=== PATIENT | female | born 1985 | race Caucasian/White ===

== ENCOUNTER → 2016-07-05 | Outpatient (CLI) | payer BC, OTHER ==
[2016-07-12 14:23] LABS: Mis test requested (Blood) ARIPIPRAZOLE
[2016-07-12 14:29] LABS: Mis test requested (Blood) Sertraline
== END ==
LOC: LABWHC1 16:02
PROVIDERS: ATTEND Physician Assistant Medical
DX: Z51.81 Encounter for therapeutic drug level monitoring (principal)
CPT/HCPCS: 36415; 80332; 80342

== ENCOUNTER → 2016-08-20 | Outpatient (CLI) | payer BC, OTHER ==
--- NOTE | 2016-08-20 13:32 | XR ---
EXAMINATION TYPE: XR knee 4V bilateral DATE OF EXAM ORDERED: 08/20/2016 1:25 PM HISTORY: M25.561 M25.562 bilateral leg pain. COMPARISON: None. FINDINGS: Joint spaces are well maintained. There is no chondrocalcinosis. No fracture or dislocatio n is seen. No joint effusion is evident. IMPRESSION: NORMAL BILATERAL KNEES.
== END ==
LOC: RADXRMAIN 13:00
PROVIDERS: ATTEND Physician Assistant
DX: M25.562 Pain in left knee (principal)

== ENCOUNTER 2016-12-14 18:16 | Emergency (ER) | payer OTHER ==
[2016-12-14 18:19] VITALS: BP 117/77; PULSE 93; RESP 20; TEMP 98.1
--- NOTE | 2016-12-14 18:29 | ED ---
Lower Extremity Injury HPI - General Chief Complaint: Extremity Injury, Lower Stated Complaint: left foot injury Time Seen by Provider: 12/14/16 18:20 Source: patient Mode of arrival: ambulatory Limitations: no limitations - History of Present Illness Initial Comments: 31-year-old female patient presents to emergency department today for evaluation of left foot and ankle injury. Patient states 2 weeks ago she was bringing her bicycle down the stairs when she missed the last 2 steps and fell twisting her ankle. Patient states that since then she has had pain with weightbearing, and tingling in her toes whenever she moves her foot. Patient denies any previous injuries to the foot or ankle. Patient states that occasionally the pain will radiate up into her lower leg. Patient denies any other injuries from the fall. Patient denies any head injury or loss of consciousness from the fall. She denies any headache, neck pain, back pain, chest pain, shortness of breath, abdominal pain, nausea, vomiting, with dizziness, or weakness. - Related Data Home Medications Medication Instructions Recorded Confirmed Acetaminophen-Codeine 300-30mg 1 tab PO Q6H PRN 02/24/16 03/16/16 [Tylenol #3] traMADol HCL [Ultram] 50 mg PO Q4HR PRN 02/24/16 03/16/16 Mirtazapine [Remeron] 15 mg PO HS 03/16/16 03/16/16 Allergies Allergy/AdvReac Type Severity Reaction Status Date / Time amoxicillin [Amoxicillin] Allergy Confusion Verified 12/14/16 18:19 Penicillins Allergy Confusion Verified 12/14/16 18:19 Review of Systems ROS Statement: Those systems with pertinent positive or pertinent negative responses have been documented in the HPI. ROS Other: All systems not noted in ROS Statement are negative. Past Medical History Past Medical History: Thyroid Disorder Additional Past Medical History / Comment(s): genital herpes History of Any Multi-Drug Resistant Organisms: None Reported Past Surgical History: No Surgical Hx Reported Past Psychological History: ADD/ADHD, Anxiety, Bipolar Smoking Status: Former smoker Past Alcohol Use History: None Reported Past Drug Use History: None Reported General Exam Limitations: no limitations General appearance: alert, in no apparent distress Head exam: Present: atraumatic, normocephalic, normal inspection Neck exam: Present: normal inspection, full ROM. Absent: tenderness, meningismus, lymphadenopathy Respiratory exam: Present: normal lung sounds bilaterally. Absent: respiratory distress, wheezes, rales, rhonchi, stridor Cardiovascular Exam: Present: regular rate, normal rhythm, normal heart sounds. Absent: systolic murmur, diastolic murmur, rubs, gallop, clicks Extremities exam: Present: normal inspection, full ROM (Full range of motion without difficulty to the left ankle and foot.), tenderness, normal capillary refill, other (Tender is over the dorsal aspect of the left foot. No tenderness noted over the medial lateral malleoli. Skin pink, warm, and dry. Capillary refill less than 3 seconds. No rash or ecchymosis noted.). Absent: pedal edema, joint swelling, calf tenderness Back exam: Present: normal inspection Neurological exam: Present: alert, oriented X3, CN II-XII intact Psychiatric exam: Present: normal affect, normal mood Skin exam: Present: warm, dry, intact, normal color. Absent: rash Course Vital Signs 12/14/16 18:17 Temperature 98.1 F Pulse Rate 93 Respiratory 20 Rate Blood Pressure 117/77 O2 Sat by Pulse 99 Oximetry Medical Decision Making - Radiology Data Radiology results: report reviewed, image reviewed X-ray of the foot and ankle shows no acute fracture dislocation. The ankle mortise appears within normal limits. The overlying soft tissue appears unremarkable. There is no acute fracture or dislocation evident in the left foot. The joint spaces in the left foot are preserved. Overlying soft tissues unremarkable. Small inferior calcaneal heel spur is noted. Impression by Dr. Johnston shows no acute fracture dislocation of the left ankle or foot. Disposition Clinical Impression: Left ankle sprain, Sprain of left foot Disposition: HOME SELF-CARE Condition: Good Instructions: Foot Sprain (ED), Ankle Sprain (ED) Additional Instructions: Utilize [id number] Tylenol and Motrin for pain control. Keep foot elevated and apply ice 4 times daily. Follow-up with primary care physician 1- 2 days for recheck. Return for any new, worsening, or concerning symptoms. Referrals: Erin Correa DO [Primary Care Provider] - 1-2 days Time of Disposition: 19:12
--- NOTE | 2016-12-14 19:07 | XR ---
EXAMINATION TYPE: XR foot limited LT, XR ankle complete LT DATE OF EXAM: 12/14/2016 CLINICAL HISTORY: Twisting injury with subsequent pain. Injury last month. TECHNIQUE: Frontal and lateral radiographs of the left foot were obtained as well as frontal, lateral and oblique radiographs of the left ankle.. COMPARISON: None. FINDINGS: There is no acute fracture/dislocation evident in the left ankle. The ankle mortise appea rs within normal limits. The overlying soft tissue appears unremarkable. There is no acute fracture or dislocation evident in the left foot. The joint spaces in the left foot are preserved. Overlying soft tissue is unremarkable. Small inferior calcaneal heel spur is noted. IMPRESSION: There is no acute fracture or dislocation in the left ankle or foot.
== END 2016-12-14 19:26 | disposition home or self-care (01) ==
LOC: EC 18:16
DX: S93.402A Sprain of unspecified ligament of left ankle, initial encounter (principal); S93.602A Unspecified sprain of left foot, initial encounter; M77.32 Calcaneal spur, left foot; M79.662 Pain in left lower leg; F31.9 Bipolar disorder, unspecified; Z87.891 Personal history of nicotine dependence; Z79.899 Other long term (current) drug therapy; Z88.0 Allergy status to penicillin; W10.9XXA Fall (on) (from) unspecified stairs and steps, initial encounter; Y93.89 Activity, other specified
CPT/HCPCS: 73610; 73620; 99283; L4350

== ENCOUNTER 2017-02-10 15:47 | Emergency (ER) | payer OTHER ==
[2017-02-10 16:13] VITALS: BP 123/77; PULSE 95; RESP 18; TEMP 98.8
--- NOTE | 2017-02-10 16:27 | ED ---
Extremity Problem HPI - General Chief complaint: Extremity Problem,Nontraumatic Stated complaint: R foot pain Time Seen by Provider: 02/10/17 16:13 Source: patient, RN notes reviewed Mode of arrival: ambulatory Limitations: no limitations - History of Present Illness Initial comments: This is a 31-year-old female who presents to the emergency department today with chief complaint of right heel pain. 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 Patient states that when it is most severe it radiates to her right arch. She has tried taking naproxen, ibuprofen and Tylenol with minimal relief.Denies fever, chills, chest pain, shortness of breath, abdominal pain, nausea, vomiting, dysuria, hematuria, numbess, tingling , headache or vision changes. - Related Data Home Medications Medication Instructions Recorded Confirmed Acetaminophen-Codeine 300-30mg 1 tab PO Q6H PRN 02/24/16 03/16/16 [Tylenol #3] traMADol HCL [Ultram] 50 mg PO Q4HR PRN 02/24/16 03/16/16 Mirtazapine [Remeron] 15 mg PO HS 03/16/16 03/16/16 Previous Rx's Medication Instructions Recorded Ibuprofen [Motrin] 800 mg PO Q6HR #30 tab 02/10/17 Allergies Allergy/AdvReac Type Severity Reaction Status Date / Time amoxicillin [Amoxicillin] Allergy Confusion Verified 02/10/17 16:11 Penicillins Allergy Confusion Verified 02/10/17 16:11 Review of Systems ROS Statement: Those systems with pertinent positive or pertinent negative responses have been documented in the HPI. ROS Other: All systems not noted in ROS Statement are negative. Past Medical History Past Medical History: Thyroid Disorder Additional Past Medical History / Comment(s): genital herpes History of Any Multi-Drug Resistant Organisms: None Reported Past Surgical History: No Surgical Hx Reported Past Psychological History: ADD/ADHD, Anxiety, Bipolar Smoking Status: Former smoker Past Alcohol Use History: None Reported Past Drug Use History: None Reported General Exam - General Exam Comments Initial Comments: General: Awake and alert, well-developed; in no apparent distress. HEENT: Head atraumatic, normocephalic. Pupils are equal, round and reactive to light. Extraocular movements intact. Neck: Supple. Normal ROM. Cardiovascular: Regular rate and rhythm. No murmurs, rubs or gallops. Chest symmetrical. Respiratory: Lungs clear to auscultation bilaterally. No wheezes, rales or rhonchi. Normal respiratory effort with no use of accessory muscles. Musculoskeletal: Tenderness elicited on palpation of the plantar surface of right heel. No bony point tenderness. Pedal pulses 2+, equal and palpable bilaterally. Normal range of motion. Strength and sensation are intact. No swelling or redness noted. Skin: [place], warm and dry without rashes or lesions. Neurological: Alert and oriented x3. CN II-XII grossly intact. Speech is fluent and answers are appropriate. No focal neuro deficits. Psychiatric: Normal mood and affect. No overt signs of depression or anxiety noted. Limitations: no limitations Course Vital Signs 02/10/17 16:00 Temperature 98.8 F Pulse Rate 95 Respiratory 18 Rate Blood Pressure 123/77 O2 Sat by Pulse 100 Oximetry Medical Decision Making - Medical Decision Making Patient is doing well and is in no acute distress at this time. X-ray of right foot revealed no acute fracture or dislocation. There was noted to be a moderate calcaneal enthesophyte. Patient will be discharged home with instructions to follow up with primary care provider within 1-2 days. She is instructed to do stretching exercises, use orthotics or heel padding, and take anti-inflammatories as needed. Disposition Clinical Impression: Heel spur Disposition: HOME SELF-CARE Condition: Good Instructions: Heel Spur (ED) Additional Instructions: Please take medications as prescribed. Please follow up with primary care provider within 1-2 days. May do stretching exercises, use orthotics or heel padding. Return to ED if symptoms should worsen or any concerns arise. Prescriptions: Ibuprofen [Motrin] 800 mg PO Q6HR #30 tab Referrals: Erin Correa DO [Primary Care Provider] - 1-2 days Time of Disposition: 16:53
--- NOTE | 2017-02-10 16:38 | XR ---
EXAMINATION TYPE: XR foot complete RT DATE OF EXAM: 02/10/2017 CLINICAL HISTORY: Right calcaneal pain for one week with no known injury. TECHNIQUE: Frontal, lateral, and oblique images of the right foot are obtained. COMPARISON: None FINDINGS: There is no acute fracture/dislocation evident in the right foot. The joint spaces in the right foot appear within normal limits. The overlying soft tissue appears unremarkable. Moderate pl alyse enthesophyte is present. No suspicious osseous lesion is seen. Hallux valgus deformity is incid entally noted as well as a bipartite right first distal metatarsal sesamoid bone. Flexion deformity o f the toes limits visualization of the distal interphalangeal joints and proximal interphalangeal kay nts. IMPRESSION: 1. There is no acute fracture or dislocation in the right foot. 2. Moderate inferior calcaneal (plantar fascial) enthesophyte.
== END 2017-02-10 17:04 | disposition home or self-care (01) ==
LOC: EC 15:47
DX: M77.31 Calcaneal spur, right foot (principal); F90.9 Attention-deficit hyperactivity disorder, unspecified type; F41.9 Anxiety disorder, unspecified; Z87.891 Personal history of nicotine dependence; Z79.899 Other long term (current) drug therapy; Z88.0 Allergy status to penicillin
CPT/HCPCS: 99283

== ENCOUNTER 2017-02-23 12:31 | Emergency (ER) | payer OTHER ==
[2017-02-23 12:58] VITALS: RESP 18
--- NOTE | 2017-02-23 14:42 | ED ---
General Adult HPI - General Chief complaint: Chest Pain Stated complaint: abd pain/chest pain Time Seen by Provider: 02/23/17 14:17 Source: patient, RN notes reviewed, old records reviewed Mode of arrival: ambulatory Limitations: no limitations - History of Present Illness Initial comments: Chief complaint history of present illness this is a 31-year-old female here with a complaint of possible anxiety attack. The patient reports that approximately 7:00 this morning she had an argument with a very stressful situation while at work. She describes rapid ventilations and feeling short of breath and slightly dizzy. No chest pain. No nausea no vomiting no sweats. Patient reports skin the hospital while in the waiting room she felt better. - Related Data Home Medications Medication Instructions Recorded Confirmed ARIPiprazole [Abilify] 5 mg PO HS 02/23/17 02/23/17 Loratadine [Claritin] 10 mg PO DAILY 02/23/17 02/23/17 Naproxen [Naprosyn] 500 mg PO BID PRN 02/23/17 02/23/17 SUMAtriptan SUCCINATE [Imitrex] 50 mg PO DAILY PRN 02/23/17 02/23/17 Sertraline [Zoloft] 100 mg PO HS 02/23/17 02/23/17 rOPINIRole HCL [Requip] 0.5 mg PO HS 02/23/17 02/23/17 Previous Rx's Medication Instructions Recorded Ibuprofen [Motrin] 800 mg PO Q6HR #30 tab 02/10/17 Allergies Allergy/AdvReac Type Severity Reaction Status Date / Time amoxicillin [Amoxicillin] Allergy Confusion Verified 02/23/17 14:22 Penicillins Allergy Confusion Verified 02/23/17 14:22 Review of Systems ROS Statement: Those systems with pertinent positive or pertinent negative responses have been documented in the HPI. Review of systems currently no chest pain no shortness of breath no GI/ problems no neuro deficits. All systems reviewed within normal limits. Past medical problems significant for bipolar disorder, she is to be on medications for thyroid disorder but she's had it checked several times by her family doctor in the remains normal. Also past history of genital herpes. Surgeries wisdom teeth. Family history her son had a hepatic blastoma has since received a liver transplant. The patient has ALLERGIES to penicillin. She does smoke. Strongly encouraged stop. Denies alcohol use. ROS Other: All systems not noted in ROS Statement are negative. Past Medical History Past Medical History: Thyroid Disorder Additional Past Medical History / Comment(s): genital herpes low magnesium levels and hypoglycemia History of Any Multi-Drug Resistant Organisms: None Reported Past Surgical History: No Surgical Hx Reported Past Psychological History: ADD/ADHD, Anxiety, Bipolar Smoking Status: Current every day smoker Past Alcohol Use History: None Reported Past Drug Use History: None Reported General Exam - General Exam Comments Initial Comments: General: The patient is awake and alert, in no distress, and does not appear acutely ill. Chief complaint shortness of breath associated with anxiety attack at work several hours ago. Vital signs temp 99.1 pulse 78 respiratory rate 18 pulse ox 100% room air blood pressure 119/75 Eye: Pupils are equal, round and reactive to light, extra-ocular movements are intact ; there is normal conjunctiva bilaterally. No signs of icterus. Ears, nose, mouth and throat: There are moist mucous membranes and no oral lesions. Neck: The neck is supple, there is no tenderness, no anterior cervical lymphadenopathy , thyroid not enlarged. Cardiovascular: There is a regular rate and rhythm. No murmur, rub or gallop is appreciated. Respiratory: Lungs are clear to auscultation, respirations are non-labored, breath sounds are equal. No wheezes, stridor, rales, or rhonchi. Gastrointestinal: Soft, non-distended, non-tender abdomen without masses or organomegaly noted. There is no rebound or guarding present. No CVA tenderness. Bowel sounds are unremarkable. Back: There is no tenderness to palpation in the midline. There is no obvious deformity. No rashes noted. Musculoskeletal: Normal ROM, no tenderness, There is no pedal edema. There is no calf tenderness or swelling. Sensation intact. Pulses equal bilaterally 2+. Neurological: CN II-XII intact, There are no obvious motor or sensory deficits. Coordination appears grossly intact. Speech is normal. No focal or lateralizing findings. Skin: Skin is warm and dry and no rashes or lesions are noted. Psychiatric: Cooperative, appropriate mood & affect, normal judgment. History of bipolar disorder no complaints of any problems with depression at this time. Limitations: no limitations Course Vital Signs 02/23/17 12:54 Temperature 99.1 F Pulse Rate 79 Respiratory 18 Rate Blood Pressure 119/75 O2 Sat by Pulse 100 Oximetry EKG Findings - EKG Comments: EKG Findings:: EKG was done and reviewed at 1346 showing normal sinus rhythm no acute ST elevation no ectopy no ischemic changes. Rate 70 ME interval was 148 QRS [address] QT [address] Onofre Medical Decision Making - Medical Decision Making Chest x-ray was done and reviewed radiologist his impression is there is no focal airspace opacity, pleural effusion, or pneumothorax seen. Cardiac silhouette size is within normal limits. Patient is rotated. Metallic posterior present to the nipples. Suspect some bronchial wall thickening. The osseous structures are intact. Impression correlate for possible reactive airway disease. Follow-up is indicated. As read by Dr. Trejo She does not have a history of asthma in the lungs are clear to auscultation. Patient will be advised to follow-up with family physician as needed. We discussed anxiety and panic attacks. The patient states she was better soon as she arrived emergency room has not had any symptoms since then. Advised to call follow-up with family physician and if she has a counselor to follow-up with counselor as needed. Or return emergency room as needed. Disposition Clinical Impression: Anxiety attack Disposition: HOME SELF-CARE Condition: Good Instructions: Generalized Anxiety Disorder (ED) Additional Instructions: As relax. Breathe slowly if this event occurs again. Follow-up emergency room as needed. Follow-up with family physician and outpatient mental health counselors as needed. Referrals: Erin Correa DO [Primary Care Provider] - 1-2 days Time of Disposition: 15:43
--- NOTE | 2017-02-23 15:07 | XR ---
EXAMINATION TYPE: XR chest 2V DATE OF EXAM: 02/23/2017 COMPARISON: Prior chest x-ray 09/16/2013 HISTORY: Chest pain and shortness of breath TECHNIQUE: Frontal and lateral views of the chest are obtained. FINDINGS: There is no focal air space opacity, pleural effusion, or pneumothorax seen. The cardiac silhouette size is within normal limits. Patient is rotated. Metallic posterior present to the nipp les. Suspect some bronchial wall thickening. The osseous structures are intact. IMPRESSION: Correlate for possible reactive airways disease. Follow-up as indicated.
[2017-02-23 15:50] VITALS: BP 122/75; PULSE 75; TEMP 97
== END 2017-02-23 15:52 | disposition home or self-care (01) ==
LOC: EC 12:31
DX: F41.9 Anxiety disorder, unspecified (principal); F31.9 Bipolar disorder, unspecified; F17.200 Nicotine dependence, unspecified, uncomplicated; Z88.0 Allergy status to penicillin; Z79.899 Other long term (current) drug therapy
CPT/HCPCS: 71020; 93005; 99285

== ENCOUNTER 2017-03-21 15:30 | Emergency (ER) | payer OTHER ==
[2017-03-21 16:32] LABS: Basophils % (A) 0 %; CH 30.3; CHCM 33.7; Eosinophils # (A) 0.1 k/uL (0-0.7); Eosinophils % (A) 1 %; HCT 39.6 % (34.0-46.0); HDW 2.55; HGB 13.2 gm/dL (11.4-16.0); Luc # (Auto) 0.14; Luc % (Auto) 1; Lymphocytes # (A) 2.9 k/uL (1.0-4.8); Lymphocytes % (A) 24 %; MCH 30.1 pg (25.0-35.0); MCHC 33.4 g/dL (31.0-37.0); MCV 90.2 fL (80.0-100.0); Mean Platelet Volume 6.8; Monocytes # (A) 0.5 k/uL (0-1.0); Monocytes % (A) 4 %; Neutrophils # (A) 8.3 k/uL (1.3-7.7); Neutrophils % (A) 70 %; RBC 4.39 m/uL (3.80-5.40); RDW 13.2 % (11.5-15.5); WBC (Perox) 11.49
--- NOTE | 2017-03-21 16:39 | XR ---
EXAMINATION TYPE: XR KUB DATE OF EXAM: 03/21/2017 COMPARISON: NONE HISTORY: Pain TECHNIQUE: Single supine KUB image of the abdomen is obtained FINDINGS: Small bowel demonstrates no evidence for dilatation or air fluid levels. Gas and fecal material is seen in non-distended colon. No convincing evidence for pneumoperitoneum. No unusual calcifications. The lung bases are clear. The osseous structures are intact. IMPRESSION: 1. Overall nonobstructive bowel gas pattern.
[2017-03-21 16:41] LABS: Appearance,Urine Cloudy (Clear); Bilirubin,Urine Negative (Negative); Glucose,Urine (UA) Negative (Negative); Ketones,Urine Negative (Negative); Leukocyte Esterase,Urine Small (Negative); Mucus,Urine Rare /hpf; Nitrite,Urine Negative (Negative); Particle Count 2729; Protein,Urine Negative (Negative); RBC,Urine 2 /hpf (0-5); Specific Gravity,Urine 1.009 (1.001-1.035); Squamous Epithelial Cell,Urine 23 /hpf (0-4); UA Billing (MACRO vs. MICRO) MICRO; Urobilinogen,Urine <2.0 mg/dL (<2.0); WBC,Urine 2 /hpf (0-5)
[2017-03-21 16:45] LABS: ALT 33 U/L (9-52); AST 27 U/L (14-36); Alkaline Phosphatase 108 U/L (38-126); Amylase <30 U/L (30-110); Anion Gap 14 mmol/L; Blood Urea Nitrogen 8 mg/dL (7-17); Calcium 9.8 mg/dL (8.4-10.2); Carbon Dioxide 21 mmol/L (22-30); Chloride 105 mmol/L (98-107); Glucose 78 mg/dL (74-99); Non-African American GFR(MDRD) >60 (>60 ml/min/1.73 sqM); Potassium 3.8 mmol/L (3.5-5.1); Sodium 140 mmol/L (137-145); Total Bilirubin 0.3 mg/dL (0.2-1.3); Total Protein 7.4 g/dL (6.3-8.2)
--- NOTE | 2017-03-21 17:05 | ED ---
Abdominal Pain HPI - General Chief Complaint: Abdominal Pain Stated Complaint: Abd Pain Time Seen by Provider: 03/21/17 15:57 Source: patient, RN notes reviewed, old records reviewed Mode of arrival: ambulatory Limitations: no limitations - History of Present Illness Initial Comments: Pt is a 31-year-old female presents to the emergency department she complains of intermittent right upper quadrant pain concern for liver cancer. She reports it has been worse this past week. She reports she has never followed up with her primary care provider in regards to concerns with this. She does have family history of liver cancer. Your first she's been very anxious regards to this. Patient states that she's had no diarrhea come over vomiting. Patient states that she is in a fever chills. She denies any Jandus. - Related Data Home Medications Medication Instructions Recorded Confirmed Magnesium 200 mg PO DAILY 03/09/17 03/21/17 SUMAtriptan SUCCINATE [Imitrex] 50 mg PO DAILY PRN 03/21/17 03/21/17 Previous Rx's Medication Instructions Recorded Famotidine [Pepcid] 20 mg PO BID #20 tablet 03/21/17 Ondansetron Odt [Zofran Odt] 4 mg PO Q8HR PRN #12 tab 03/21/17 Allergies Allergy/AdvReac Type Severity Reaction Status Date / Time amoxicillin [Amoxicillin] Allergy SHORTNESS Verified 03/21/17 17:22 OF BREATH Penicillins Allergy Confusion Verified 03/21/17 17:22 Review of Systems ROS Statement: Those systems with pertinent positive or pertinent negative responses have been documented in the HPI. ROS Other: All systems not noted in ROS Statement are negative. Past Medical History Past Medical History: Thyroid Disorder Additional Past Medical History / Comment(s): genital herpes low magnesium levels and hypoglycemia migraines History of Any Multi-Drug Resistant Organisms: None Reported Past Surgical History: No Surgical Hx Reported Past Psychological History: ADD/ADHD, Anxiety, Bipolar Smoking Status: Former smoker Past Alcohol Use History: None Reported Past Drug Use History: Marijuana General Exam - General Exam Comments Initial Comments: Well appearing 31 yo female. No distress. Limitations: no limitations General appearance: alert, in no apparent distress Head exam: Present: atraumatic, normocephalic, normal inspection Eye exam: Present: normal appearance, PERRL, EOMI. Absent: scleral icterus, conjunctival injection, periorbital swelling ENT exam: Present: normal exam, mucous membranes moist Neck exam: Present: normal inspection. Absent: tenderness, meningismus, lymphadenopathy Respiratory exam: Present: normal lung sounds bilaterally. Absent: respiratory distress, wheezes, rales, rhonchi, stridor Cardiovascular Exam: Present: regular rate, normal rhythm, normal heart sounds. Absent: systolic murmur, diastolic murmur, rubs, gallop, clicks GI/Abdominal exam: Present: soft, tenderness (RUQ us ), normal bowel sounds. Absent: distended, guarding, rebound, rigid Extremities exam: Present: normal inspection, full ROM, normal capillary refill. Absent: tenderness, pedal edema, joint swelling, calf tenderness Back exam: Present: normal inspection Neurological exam: Present: alert, oriented X3, CN II-XII intact Psychiatric exam: Present: normal affect, normal mood Skin exam: Present: warm, dry, intact, normal color. Absent: rash Course Vital Signs 03/21/17 03/21/17 15:49 18:19 Temperature 99.4 F 98.9 F Pulse Rate 94 66 Respiratory 16 18 Rate Blood Pressure 128/87 93/66 O2 Sat by Pulse 100 100 Oximetry Medical Decision Making - Medical Decision Making [id number] female presents with one week of right upper quadrant abdominal pain. Concerned she may have liver cancer. She has a history of anxiety. Patient 's lab work was I reviewed them with the normal limits. She was mildly tender in the right upper quadrant. I did ultrasound of her gallbladder. No evidence of any other maladies. Patient was a part of these results and feels relieved. Patient will be discharged this time will follow up with primary care provider. Return parameters were discussed. - Lab Data Result diagrams: 03/21/17 16:10 03/21/17 16:10 Lab Results 03/21/17 03/21/17 03/21/17 Range/Units 16:10 16:10 16:10 WBC 12.0 H (3.8-10.6) k/uL RBC 4.39 (3.80-5.40) m/uL Hgb 13.2 (11.4-16.0) gm/dL Hct 39.6 (34.0-46.0) % MCV 90.2 (80.0-100.0) fL MCH 30.1 (25.0-35.0) pg MCHC 33.4 (31.0-37.0) g/dL RDW 13.2 (11.5-15.5) % Plt Count 329 (150-450) k/uL Neutrophils % 70 % Lymphocytes % 24 % Monocytes % 4 % Eosinophils % 1 % Basophils % 0 % Neutrophils # 8.3 H (1.3-7.7) k/uL Lymphocytes # 2.9 (1.0-4.8) k/uL Monocytes # 0.5 (0-1.0) k/uL Eosinophils # 0.1 (0-0.7) k/uL Basophils # 0.0 (0-0.2) k/uL Sodium 140 (137-145) mmol/L Potassium 3.8 (3.5-5.1) mmol/L Chloride 105 (98-107) mmol/L Carbon Dioxide 21 L (22-30) mmol/L Anion Gap 14 mmol/L BUN 8 (7-17) mg/dL Creatinine 0.70 (0.52-1.04) mg/dL Est GFR (MDRD) Af Amer >60 (>60 ml/min/1.73 sqM) Est GFR (MDRD) Non-Af >60 (>60 ml/min/1.73 sqM) Glucose 78 (74-99) mg/dL Calcium 9.8 (8.4-10.2) mg/dL Total Bilirubin 0.3 (0.2-1.3) mg/dL AST 27 (14-36) U/L ALT 33 (9-52) U/L Alkaline Phosphatase 108 (38-126) U/L Total Protein 7.4 (6.3-8.2) g/dL Albumin 4.4 (3.5-5.0) g/dL Amylase <30 L (30-110) U/L Lipase 46 (23-300) U/L Urine Color Urine Appearance (Clear) Urine pH (5.0-8.0) Ur Specific [place] (1.001-1.035) Urine Protein (Negative) Urine Glucose (UA) (Negative) Urine Ketones (Negative) Urine Blood (Negative) Urine Nitrite (Negative) Urine Bilirubin (Negative) Urine Urobilinogen (<2.0) mg/dL Ur Leukocyte Esterase (Negative) Urine RBC (0-5) /hpf Urine WBC (0-5) /hpf Ur Squamous Epith Cells (0-4) /hpf Urine Mucus (None) /hpf Urine HCG, Qual Not Detected (Not Detectd) 03/21/17 Range/Units 16:10 WBC (3.8-10.6) k/uL RBC (3.80-5.40) m/uL Hgb (11.4-16.0) gm/dL Hct (34.0-46.0) % MCV (80.0-100.0) fL MCH (25.0-35.0) pg MCHC (31.0-37.0) g/dL RDW (11.5-15.5) % Plt Count (150-450) k/uL Neutrophils % % Lymphocytes % % Monocytes % % Eosinophils % % Basophils % % Neutrophils # (1.3-7.7) k/uL Lymphocytes # (1.0-4.8) k/uL Monocytes # (0-1.0) k/uL Eosinophils # (0-0.7) k/uL Basophils # (0-0.2) k/uL Sodium (137-145) mmol/L Potassium (3.5-5.1) mmol/L Chloride (98-107) mmol/L Carbon Dioxide (22-30) mmol/L Anion Gap mmol/L BUN (7-17) mg/dL Creatinine (0.52-1.04) mg/dL Est GFR (MDRD) Af Amer (>60 ml/min/1.73 sqM) Est GFR (MDRD) Non-Af (>60 ml/min/1.73 sqM) Glucose (74-99) mg/dL Calcium (8.4-10.2) mg/dL Total Bilirubin (0.2-1.3) mg/dL AST (14-36) U/L ALT (9-52) U/L Alkaline Phosphatase (38-126) U/L Total Protein (6.3-8.2) g/dL Albumin (3.5-5.0) g/dL Amylase (30-110) U/L Lipase (23-300) U/L Urine Color Yellow Urine Appearance Cloudy H (Clear) Urine pH 6.0 (5.0-8.0) Ur Specific [place] 1.009 (1.001-1.035) Urine Protein Negative (Negative) Urine Glucose (UA) Negative (Negative) Urine Ketones Negative (Negative) Urine Blood Trace H (Negative) Urine Nitrite Negative (Negative) Urine Bilirubin Negative (Negative) Urine Urobilinogen <2.0 (<2.0) mg/dL Ur Leukocyte Esterase Small H (Negative) Urine RBC 2 (0-5) /hpf Urine WBC 2 (0-5) /hpf Ur Squamous Epith Cells 23 H (0-4) /hpf Urine Mucus Rare H (None) /hpf Urine HCG, Qual (Not Detectd) - Radiology Data Radiology results: report reviewed Normal right upper quadrant ultrasound performed. No acute cholecystitis, . Liver was within normal limits. No evidence of liver masses. Disposition Clinical Impression: RUQ abdominal pain Disposition: HOME SELF-CARE Condition: Good Instructions: Abdominal Pain (ED) Additional Instructions: Patient advised to follow-up with primary care provider. Take the nausea medicine and Pepcid as prescribed. Return to the emergency department if any alarming signs or symptoms occur. Prescriptions: Famotidine [Pepcid] 20 mg PO BID #20 tablet Ondansetron Odt [Zofran Odt] 4 mg PO Q8HR PRN #12 tab PRN Reason: Nausea Referrals: Erin Correa DO [Primary Care Provider] - 1-2 days Time of Disposition: 17:42
--- NOTE | 2017-03-21 17:17 | US ---
EXAMINATION TYPE: US gallbladder DATE OF EXAM: 03/21/2017 COMPARISON: NONE CLINICAL HISTORY: Pain. EXAM MEASUREMENTS: Liver Length: 13.9 cm Gallbladder Wall: 0.3 cm CBD: 0.3 cm Right Kidney: 11.2 x 4.0 x 5.2 cm Pancreas: Tail obscured by overlying bowel gas Liver: wnl Gallbladder: wnl Evidence for sonographic Montez's sign: no CBD: wnl Right Kidney: Inferior pole obscured by overlying bowel gas IMPRESSION: Negative right upper quadrant abdominal sonogram. No gallstones or dilated ducts.
[2017-03-21 18:20] VITALS: BP 93/66; PULSE 66; RESP 18; TEMP 98.9
== END 2017-03-21 18:20 | disposition home or self-care (01) ==
LOC: EC 15:30
DX: R10.11 Right upper quadrant pain (principal); R50.9 Fever, unspecified; Z87.891 Personal history of nicotine dependence; Z79.899 Other long term (current) drug therapy; Z88.0 Allergy status to penicillin
CPT/HCPCS: 36415; 74000; 76705; 80053; 81001; 81025; 82150; 83690; 85025; 99284

== ENCOUNTER 2017-04-07 16:56 | Emergency (ER) | payer OTHER ==
[2017-04-07 17:08] VITALS: RESP 20
[2017-04-07] MEDS ORDERED: IBUPROFEN 600 MG TAB PO STA (18:10)
[2017-04-07] MEDS ORDERED: METOCLOPRAMIDE 5 MG/ML 2 ML VIAL IVP STA (18:11)
[2017-04-07] MEDS ORDERED: SODIUM CHLORIDE 0.9% 1,000 ML IV ONE (18:11)
--- NOTE | 2017-04-07 18:48 | ED ---
General Adult HPI - General Chief complaint: Headache Stated complaint: Neck Pain Time Seen by Provider: 04/07/17 18:04 Source: patient, RN notes reviewed Mode of arrival: ambulatory Limitations: no limitations - History of Present Illness Initial comments: This a 31-year-old female presents emergency Department with chief complaint of fever, neck pain. Patient states symptoms started from today. Patient states she's is not well. She denies any specific complaints. Patient states she has chronic neck problems states that she fell she's been having exacerbation of her symptoms. She complains of primarily right-sided neck pain. Patient also complains of some urinary symptoms in which she's had increased frequency and dysuria. Patient denies any vomiting, diarrhea constipation. Patient states she was nauseated this morning though she took Zofran. Patient also took without codeine for her next this pain but states it in a month. Patient denies codeine for her neck pain. Patient states nausea resolved. Denies any photophobia. Patient states the headache is very mild in nature. Denies any blurred vision, focal weakness. - Related Data Home Medications Medication Instructions Recorded Confirmed Magnesium 200 mg PO DAILY 03/09/17 04/07/17 SUMAtriptan SUCCINATE [Imitrex] 50 mg PO DAILY PRN 03/21/17 04/07/17 Previous Rx's Medication Instructions Recorded Ondansetron Odt [Zofran Odt] 4 mg PO Q8HR PRN #12 tab 03/21/17 Allergies Allergy/AdvReac Type Severity Reaction Status Date / Time amoxicillin [Amoxicillin] Allergy SHORTNESS Verified 04/07/17 18:03 OF BREATH Penicillins Allergy Confusion Verified 04/07/17 18:03 Review of Systems ROS Statement: Those systems with pertinent positive or pertinent negative responses have been documented in the HPI. ROS Other: All systems not noted in ROS Statement are negative. Past Medical History Past Medical History: Thyroid Disorder Additional Past Medical History / Comment(s): genital herpes low magnesium levels and hypoglycemia migraines History of Any Multi-Drug Resistant Organisms: None Reported Past Surgical History: No Surgical Hx Reported Past Psychological History: ADD/ADHD, Anxiety, Bipolar Smoking Status: Light tobacco smoker Past Alcohol Use History: None Reported Past Drug Use History: None Reported General Exam Limitations: no limitations General appearance: alert, in no apparent distress Head exam: Present: atraumatic, normocephalic, normal inspection Eye exam: Present: normal appearance, PERRL, EOMI. Absent: scleral icterus, conjunctival injection, periorbital swelling ENT exam: Present: normal exam, normal oropharynx, mucous membranes moist, TM's normal bilaterally, normal external ear exam Neck exam: Present: normal inspection, tenderness (Mild right-sided neck tenderness over the cervical paraspinal region), full ROM. Absent: meningismus , lymphadenopathy Respiratory exam: Present: normal lung sounds bilaterally. Absent: respiratory distress, wheezes, rales, rhonchi, stridor Cardiovascular Exam: Present: regular rate, normal rhythm, normal heart sounds. Absent: systolic murmur, diastolic murmur, rubs, gallop, clicks GI/Abdominal exam: Present: soft, tenderness (Mild suprapubic), normal bowel sounds. Absent: distended, guarding, rebound, rigid Back exam: Absent: CVA tenderness (R), CVA tenderness (L) Neurological exam: Present: alert, oriented X3, CN II-XII intact, reflexes normal. Absent: motor sensory deficit Skin exam: Present: warm, dry, intact, normal color. Absent: rash Course Vital Signs 04/07/17 17:05 Temperature 101 F H Pulse Rate 104 H Respiratory 20 Rate Blood Pressure 130/88 O2 Sat by Pulse 98 Oximetry Medical Decision Making - Medical Decision Making 31-year-old female presented emergency department to complaining neck pain, headache not feeling well. Patient had lab work, x-ray, strep, influenza, urinalysis all which are negative at this time there is no acute abnormality. Patient was given ibuprofen antiemetics and some fluid she states she feels 100 % better. Patient had no nuchal rigidity or signs and meningismus on exam though based on patient's symptoms a headache and some neck pain with a fever I did recommend that we do a lumbar puncture to rule out meningitis. Patient is refusing this at this time. I do feel that it is less likely to be meningitis that she has no nuchal rigidity that she does feel improved after ibuprofen and fluids. We discussed return parameters and close follow-up. - Lab Data Result diagrams: 04/07/17 19:12 04/07/17 19:12 Lab Results 04/07/17 04/07/17 04/07/17 Range/Units 17:00 19:12 19:12 WBC 8.4 (3.8-10.6) k/uL RBC 4.20 (3.80-5.40) m/uL Hgb 12.3 (11.4-16.0) gm/dL Hct 36.9 (34.0-46.0) % MCV 87.8 (80.0-100.0) fL MCH 29.3 (25.0-35.0) pg MCHC 33.3 (31.0-37.0) g/dL RDW 13.4 (11.5-15.5) % Plt Count 264 (150-450) k/uL Neutrophils % 65 % Lymphocytes % 27 % Monocytes % 5 % Eosinophils % 1 % Basophils % 0 % Neutrophils # 5.5 (1.3-7.7) k/uL Lymphocytes # 2.3 (1.0-4.8) k/uL Monocytes # 0.4 (0-1.0) k/uL Eosinophils # 0.1 (0-0.7) k/uL Basophils # 0.0 (0-0.2) k/uL Sodium 139 (137-145) mmol/L Potassium 3.8 (3.5-5.1) mmol/L Chloride 108 H (98-107) mmol/L Carbon Dioxide 20 L (22-30) mmol/L Anion Gap 11 mmol/L BUN 9 (7-17) mg/dL Creatinine 0.60 (0.52-1.04) mg/dL Est GFR (MDRD) Af Amer >60 (>60 ml/min/1.73 sqM) Est GFR (MDRD) Non-Af >60 (>60 ml/min/1.73 sqM) Glucose 89 (74-99) mg/dL Plasma Lactic Acid Gustavo (0.7-2.0) mmol/L Calcium 9.4 (8.4-10.2) mg/dL Total Bilirubin 0.4 (0.2-1.3) mg/dL AST 29 (14-36) U/L ALT 41 (9-52) U/L Alkaline Phosphatase 95 (38-126) U/L Total Protein 6.8 (6.3-8.2) g/dL Albumin 4.0 (3.5-5.0) g/dL Urine Color Urine Appearance (Clear) Urine pH (5.0-8.0) Ur Specific [place] (1.001-1.035) Urine Protein (Negative) Urine Glucose (UA) (Negative) Urine Ketones (Negative) Urine Blood (Negative) Urine Nitrite (Negative) Urine Bilirubin (Negative) Urine Urobilinogen (<2.0) mg/dL Ur Leukocyte Esterase (Negative) Urine HCG, Qual (Not Detectd) Influenza Type A RNA Not Detected (Not Detectd) Influenza Type B (PCR) Not Detected (Not Detectd) Group A Strep Rapid (Negative) 04/07/17 04/07/17 04/07/17 Range/Units 19:12 19:42 20:32 WBC (3.8-10.6) k/uL RBC (3.80-5.40) m/uL Hgb (11.4-16.0) gm/dL Hct (34.0-46.0) % MCV (80.0-100.0) fL MCH (25.0-35.0) pg MCHC (31.0-37.0) g/dL RDW (11.5-15.5) % Plt Count (150-450) k/uL Neutrophils % % Lymphocytes % % Monocytes % % Eosinophils % % Basophils % % Neutrophils # (1.3-7.7) k/uL Lymphocytes # (1.0-4.8) k/uL Monocytes # (0-1.0) k/uL Eosinophils # (0-0.7) k/uL Basophils # (0-0.2) k/uL Sodium (137-145) mmol/L Potassium (3.5-5.1) mmol/L Chloride (98-107) mmol/L Carbon Dioxide (22-30) mmol/L Anion Gap mmol/L BUN (7-17) mg/dL Creatinine (0.52-1.04) mg/dL Est GFR (MDRD) Af Amer (>60 ml/min/1.73 sqM) Est GFR (MDRD) Non-Af (>60 ml/min/1.73 sqM) Glucose (74-99) mg/dL Plasma Lactic Acid Gustavo 1.5 (0.7-2.0) mmol/L Calcium (8.4-10.2) mg/dL Total Bilirubin (0.2-1.3) mg/dL AST (14-36) U/L ALT (9-52) U/L Alkaline Phosphatase (38-126) U/L Total Protein (6.3-8.2) g/dL Albumin (3.5-5.0) g/dL Urine Color Light Yellow Urine Appearance Clear (Clear) Urine pH 6.5 (5.0-8.0) Ur Specific [place] 1.006 (1.001-1.035) Urine Protein Negative (Negative) Urine Glucose (UA) Negative (Negative) Urine Ketones Negative (Negative) Urine Blood Negative (Negative) Urine Nitrite Negative (Negative) Urine Bilirubin Negative (Negative) Urine Urobilinogen <2.0 (<2.0) mg/dL Ur Leukocyte Esterase Negative (Negative) Urine HCG, Qual (Not Detectd) Influenza Type A RNA (Not Detectd) Influenza Type B (PCR) (Not Detectd) Group A Strep Rapid Negative (Negative) 04/07/17 Range/Units 20:32 WBC (3.8-10.6) k/uL RBC (3.80-5.40) m/uL Hgb (11.4-16.0) gm/dL Hct (34.0-46.0) % MCV (80.0-100.0) fL MCH (25.0-35.0) pg MCHC (31.0-37.0) g/dL RDW (11.5-15.5) % Plt Count (150-450) k/uL Neutrophils % % Lymphocytes % % Monocytes % % Eosinophils % % Basophils % % Neutrophils # (1.3-7.7) k/uL Lymphocytes # (1.0-4.8) k/uL Monocytes # (0-1.0) k/uL Eosinophils # (0-0.7) k/uL Basophils # (0-0.2) k/uL Sodium (137-145) mmol/L Potassium (3.5-5.1) mmol/L Chloride (98-107) mmol/L Carbon Dioxide (22-30) mmol/L Anion Gap mmol/L BUN (7-17) mg/dL Creatinine (0.52-1.04) mg/dL Est GFR (MDRD) Af Amer (>60 ml/min/1.73 sqM) Est GFR (MDRD) Non-Af (>60 ml/min/1.73 sqM) Glucose (74-99) mg/dL Plasma Lactic Acid Gustavo (0.7-2.0) mmol/L Calcium (8.4-10.2) mg/dL Total Bilirubin (0.2-1.3) mg/dL AST (14-36) U/L ALT (9-52) U/L Alkaline Phosphatase (38-126) U/L Total Protein (6.3-8.2) g/dL Albumin (3.5-5.0) g/dL Urine Color Urine Appearance (Clear) Urine pH (5.0-8.0) Ur Specific [place] (1.001-1.035) Urine Protein (Negative) Urine Glucose (UA) (Negative) Urine Ketones (Negative) Urine Blood (Negative) Urine Nitrite (Negative) Urine Bilirubin (Negative) Urine Urobilinogen (<2.0) mg/dL Ur Leukocyte Esterase (Negative) Urine HCG, Qual Not Detected (Not Detectd) Influenza Type A RNA (Not Detectd) Influenza Type B (PCR) (Not Detectd) Group A Strep Rapid (Negative) Disposition Clinical Impression: Headache, Viral infection Disposition: HOME SELF-CARE Condition: Stable Instructions: Viral Syndrome (ED) Additional Instructions: Please return to the Emergency Department if symptoms worsen or any other concerns. Referrals: Erin Correa DO [Primary Care Provider] - 1-2 days Time of Disposition: 20:51
[2017-04-07 19:23] LABS: Basophils % (A) 0 %; CH 30.4; CHCM 34.8; Eosinophils # (A) 0.1 k/uL (0-0.7); Eosinophils % (A) 1 %; HCT 36.9 % (34.0-46.0); HDW 2.61; HGB 12.3 gm/dL (11.4-16.0); Luc # (Auto) 0.15; Luc % (Auto) 2; Lymphocytes # (A) 2.3 k/uL (1.0-4.8); Lymphocytes % (A) 27 %; MCH 29.3 pg (25.0-35.0); MCHC 33.3 g/dL (31.0-37.0); MCV 87.8 fL (80.0-100.0); Mean Platelet Volume 6.9; Monocytes # (A) 0.4 k/uL (0-1.0); Monocytes % (A) 5 %; Neutrophils # (A) 5.5 k/uL (1.3-7.7); Neutrophils % (A) 65 %; RDW 13.4 % (11.5-15.5); WBC 8.4 k/uL (3.8-10.6); WBC (Perox) 8.85
[2017-04-07 19:30] LABS: ALT 41 U/L (9-52); AST 29 U/L (14-36); Alkaline Phosphatase 95 U/L (38-126); Anion Gap 11 mmol/L; Blood Urea Nitrogen 9 mg/dL (7-17); Calcium 9.4 mg/dL (8.4-10.2); Carbon Dioxide 20 mmol/L (22-30); Chloride 108 mmol/L (98-107); Glucose 89 mg/dL (74-99); Non-African American GFR(MDRD) >60 (>60 ml/min/1.73 sqM); Potassium 3.8 mmol/L (3.5-5.1); Sodium 139 mmol/L (137-145); Total Bilirubin 0.4 mg/dL (0.2-1.3); Total Protein 6.8 g/dL (6.3-8.2)
--- NOTE | 2017-04-07 19:31 | XR ---
EXAMINATION TYPE: XR chest 2V DATE OF EXAM: 04/07/2017 COMPARISON: 02/23/2017 HISTORY: Fever TECHNIQUE: Frontal and lateral views of the chest are obtained. FINDINGS: Heart and mediastinum are normal. Lungs are clear. Diaphragm is normal. Bony thorax appear s normal. IMPRESSION: Normal chest. No change.
[2017-04-07 20:42] LABS: Appearance,Urine Clear (Clear); Bilirubin,Urine Negative (Negative); Glucose,Urine (UA) Negative (Negative); Ketones,Urine Negative (Negative); Leukocyte Esterase,Urine Negative (Negative); Nitrite,Urine Negative (Negative); PH, Urine 6.5 (5.0-8.0); Protein,Urine Negative (Negative); Specific Gravity,Urine 1.006 (1.001-1.035); UA Billing (MACRO vs. MICRO) CHEM; Urobilinogen,Urine <2.0 mg/dL (<2.0)
[2017-04-07 21:13] VITALS: BP 131/70; PULSE 99; TEMP 99
== END 2017-04-07 21:13 | disposition home or self-care (01) ==
LOC: EC 16:56
DX: B34.9 Viral infection, unspecified (principal); R50.9 Fever, unspecified; M54.2 Cervicalgia; R30.0 Dysuria; R35.0 Frequency of micturition; F17.200 Nicotine dependence, unspecified, uncomplicated; Z79.899 Other long term (current) drug therapy; Z88.0 Allergy status to penicillin; Z87.898 Personal history of other specified conditions
CPT/HCPCS: 36415; 80053; 83605; 85025; 81003; 81025; 87040; 87086; 87081; 87430; 87502; 71020; 99283; 96374; 96361 ×2; J2765

== ENCOUNTER 2017-05-27 16:42 | Emergency (ER) | payer OTHER ==
[2017-05-27] MEDS ORDERED: HYDROmorphone 0.5 MG/0.5 ML SYRINGE IVP STA (17:11)
[2017-05-27] MEDS ORDERED: ONDANSETRON 4 MG/2 ML VIAL IVP STA (17:11)
[2017-05-27] MEDS ORDERED: SODIUM CHLORIDE 0.9% 1,000 ML IV STA ×2 (17:11)
--- NOTE | 2017-05-27 17:15 | ED ---
Abdominal Pain HPI - General Chief Complaint: Abdominal Pain Stated Complaint: Abd Pain Time Seen by Provider: 05/27/17 16:58 Source: patient, RN notes reviewed, old records reviewed Mode of arrival: ambulatory Limitations: no limitations - History of Present Illness Initial Comments: Patient is a 34-year-old female presents emergency department today chief complaint of one week of epigastric abdominal pain, right upper quadrant pain. She reports it seemed to be worse with eating. She states that she went to her primary care doctor's office on Tuesday, and was told she had red blood cells and white blood cells in her urine. She denies any antibiotics. She states that she was sent here for the patient to rule out gallbladder disease. She reports she's felt chilled denies any specific fever. She's had episodes of vomiting and diarrhea yesterday. He denies any chest pain or shortness of breath. - Related Data Home Medications Medication Instructions Recorded Confirmed Cyclobenzaprine [Flexeril] 10 mg PO HS 04/18/17 05/27/17 ARIPiprazole [Abilify] 10 mg PO HS 05/27/17 05/27/17 Loratadine [Claritin] 10 mg PO HS 05/27/17 05/27/17 Ondansetron HCl [Zofran] 8 mg PO TID PRN 05/27/17 05/27/17 Pantoprazole Sodium [Protonix] 40 mg PO HS 05/27/17 05/27/17 Sertraline [Zoloft] 100 mg PO HS 05/27/17 05/27/17 Allergies Allergy/AdvReac Type Severity Reaction Status Date / Time amoxicillin [Amoxicillin] Allergy SHORTNESS Verified 05/27/17 16:58 OF BREATH Penicillins Allergy Confusion Verified 05/27/17 16:58 Review of Systems ROS Statement: Those systems with pertinent positive or pertinent negative responses have been documented in the HPI. ROS Other: All systems not noted in ROS Statement are negative. Past Medical History Past Medical History: Thyroid Disorder Additional Past Medical History / Comment(s): genital herpes low magnesium levels and hypoglycemia migraines History of Any Multi-Drug Resistant Organisms: None Reported Past Surgical History: No Surgical Hx Reported Past Psychological History: ADD/ADHD, Anxiety, Bipolar Smoking Status: Light tobacco smoker Past Alcohol Use History: None Reported Past Drug Use History: None Reported General Exam - General Exam Comments Initial Comments: This patient is a 32-year-old female. No acute distress. Limitations: no limitations General appearance: alert, in no apparent distress Head exam: Present: atraumatic, normocephalic, normal inspection Eye exam: Present: normal appearance, PERRL, EOMI. Absent: scleral icterus, conjunctival injection, periorbital swelling ENT exam: Present: normal exam Neck exam: Present: normal inspection. Absent: tenderness, meningismus, lymphadenopathy Respiratory exam: Present: normal lung sounds bilaterally. Absent: respiratory distress, wheezes, rales, rhonchi, stridor Cardiovascular Exam: Present: regular rate, normal rhythm, normal heart sounds. Absent: systolic murmur, diastolic murmur, rubs, gallop, clicks GI/Abdominal exam: Present: soft, tenderness (Minimal epigastric tenderness. No rebound or guarding.), normal bowel sounds. Absent: distended, guarding, rebound, rigid Extremities exam: Present: normal inspection, full ROM, normal capillary refill. Absent: tenderness, pedal edema, joint swelling, calf tenderness Back exam: Present: normal inspection Neurological exam: Present: alert, oriented X3, CN II-XII intact Course Vital Signs 05/27/17 16:47 Temperature 97.8 F Pulse Rate 100 Respiratory 18 Rate Blood Pressure 130/83 O2 Sat by Pulse 100 Oximetry Medical Decision Making - Medical Decision Making Patient is a 34-year-old female presents emergency department today chief complaint of one week of epigastric abdominal pain, right upper quadrant pain. She reports it seemed to be worse with eating. She states that she went to her primary care doctor's office on Tuesday, and was told she had red blood cells and white blood cells in her urine. Patient does have some mild epigastric tenderness at this time. She is concerned for gallbladder disease. Patient received IV fluids, lab work was obtained. Patient was given pain medication. Patient blood work was reviewed and negative for any significant abnormality's. She did have some mildly elevated transaminases but no signs of acute hepatitis or reflection of acute cholecystitis. Patient's ultrasound was negative for any gallstones. Patient urinalysis did show blood in it however she is on her menstrual cycle. Patient was informed of all these results. I discussed that I believe her symptoms could be related to biliary colic. She is scheduled for a HIDA scan. I discussed that she should follow-up with her PCP. Patient understands treatment plan will comply. Return parameters were discussed. - Lab Data Result diagrams: 05/27/17 17:15 05/27/17 17:15 Lab Results 05/27/17 05/27/17 05/27/17 Range/Units 17:15 17:15 17:15 WBC 7.6 (3.8-10.6) k/uL RBC 4.14 (3.80-5.40) m/uL Hgb 12.3 (11.4-16.0) gm/dL Hct 37.5 (34.0-46.0) % MCV 90.4 (80.0-100.0) fL MCH 29.6 (25.0-35.0) pg MCHC 32.7 (31.0-37.0) g/dL RDW 14.2 (11.5-15.5) % Plt Count 249 (150-450) k/uL Neutrophils % 56 % Lymphocytes % 33 % Monocytes % 6 % Eosinophils % 2 % Basophils % 0 % Neutrophils # 4.3 (1.3-7.7) k/uL Lymphocytes # 2.5 (1.0-4.8) k/uL Monocytes # 0.5 (0-1.0) k/uL Eosinophils # 0.1 (0-0.7) k/uL Basophils # 0.0 (0-0.2) k/uL Sodium 140 (137-145) mmol/L Potassium 3.8 (3.5-5.1) mmol/L Chloride 104 (98-107) mmol/L Carbon Dioxide 25 (22-30) mmol/L Anion Gap 11 mmol/L BUN 9 (7-17) mg/dL Creatinine 0.74 (0.52-1.04) mg/dL Est GFR (MDRD) Af Amer >60 (>60 ml/min/1.73 sqM) Est GFR (MDRD) Non-Af >60 (>60 ml/min/1.73 sqM) Glucose 87 (74-99) mg/dL Calcium 9.4 (8.4-10.2) mg/dL Total Bilirubin 0.2 (0.2-1.3) mg/dL AST 83 H (14-36) U/L ALT 118 H (9-52) U/L Alkaline Phosphatase 97 (38-126) U/L Total Protein 6.5 (6.3-8.2) g/dL Albumin 3.8 (3.5-5.0) g/dL Amylase 31 (30-110) U/L Lipase 47 (23-300) U/L Urine Color Yellow Urine Appearance Clear (Clear) Urine pH 6.0 (5.0-8.0) Ur Specific [place] 1.005 (1.001-1.035) Urine Protein Negative (Negative) Urine Glucose (UA) Negative (Negative) Urine Ketones Negative (Negative) Urine Blood Moderate H (Negative) Urine Nitrite Negative (Negative) Urine Bilirubin Negative (Negative) Urine Urobilinogen <2.0 (<2.0) mg/dL Ur Leukocyte Esterase Negative (Negative) Urine RBC 2 (0-5) /hpf Urine WBC 2 (0-5) /hpf Ur Squamous Epith Cells 2 (0-4) /hpf Urine Bacteria Rare H (None) /hpf Urine HCG, Qual (Not Detectd) 05/27/17 Range/Units 17:15 WBC (3.8-10.6) k/uL RBC (3.80-5.40) m/uL Hgb (11.4-16.0) gm/dL Hct (34.0-46.0) % MCV (80.0-100.0) fL MCH (25.0-35.0) pg MCHC (31.0-37.0) g/dL RDW (11.5-15.5) % Plt Count (150-450) k/uL Neutrophils % % Lymphocytes % % Monocytes % % Eosinophils % % Basophils % % Neutrophils # (1.3-7.7) k/uL Lymphocytes # (1.0-4.8) k/uL Monocytes # (0-1.0) k/uL Eosinophils # (0-0.7) k/uL Basophils # (0-0.2) k/uL Sodium (137-145) mmol/L Potassium (3.5-5.1) mmol/L Chloride (98-107) mmol/L Carbon Dioxide (22-30) mmol/L Anion Gap mmol/L BUN (7-17) mg/dL Creatinine (0.52-1.04) mg/dL Est GFR (MDRD) Af Amer (>60 ml/min/1.73 sqM) Est GFR (MDRD) Non-Af (>60 ml/min/1.73 sqM) Glucose (74-99) mg/dL Calcium (8.4-10.2) mg/dL Total Bilirubin (0.2-1.3) mg/dL AST (14-36) U/L ALT (9-52) U/L Alkaline Phosphatase (38-126) U/L Total Protein (6.3-8.2) g/dL Albumin (3.5-5.0) g/dL Amylase (30-110) U/L Lipase (23-300) U/L Urine Color Urine Appearance (Clear) Urine pH (5.0-8.0) Ur Specific [place] (1.001-1.035) Urine Protein (Negative) Urine Glucose (UA) (Negative) Urine Ketones (Negative) Urine Blood (Negative) Urine Nitrite (Negative) Urine Bilirubin (Negative) Urine Urobilinogen (<2.0) mg/dL Ur Leukocyte Esterase (Negative) Urine RBC (0-5) /hpf Urine WBC (0-5) /hpf Ur Squamous Epith Cells (0-4) /hpf Urine Bacteria (None) /hpf Urine HCG, Qual Not Detected (Not Detectd) - Radiology Data Radiology results: report reviewed KUB x-ray reveals a nonacute abdomen. No sign of intestinal obstruction or pneumoperitoneum. Fecal pattern is normal. Lung bases are clear. No pathologic calcifications over the kidneys. Ultrasound of the gallbladder is reviewed and negative for any acute process. No gallstones or dilated ducts. Disposition Clinical Impression: Biliary colic Disposition: HOME SELF-CARE Condition: Good Instructions: Biliary Colic (ED) Additional Instructions: Follow-up with primary care provider regards to a HIDA scan and other testing. Patient should monitor her diet, clear liquids for the next 24-48 hours then slowly of a bland diet. Patient should return to emergency department if any alarming signs or symptoms occur. Referrals: Erin Correa DO [Primary Care Provider] - 1-2 days Time of Disposition: 18:45
[2017-05-27] MEDS ORDERED: MAG HYDROX/AL HYDROX/SIMETH 30 ML, HYOSCYAMINE ELIXIR 10 ML, CIMETIDINE HCL 300 MG PO STA ×3 (17:18)
[2017-05-27 17:48] LABS: Basophils % (A) 0 %; Eosinophils # (A) 0.1 k/uL (0-0.7); Eosinophils % (A) 2 %; HCT 37.5 % (34.0-46.0); HGB 12.3 gm/dL (11.4-16.0); Lymphocytes # (A) 2.5 k/uL (1.0-4.8); Lymphocytes % (A) 33 %; MCH 29.6 pg (25.0-35.0); MCHC 32.7 g/dL (31.0-37.0); MCV 90.4 fL (80.0-100.0); Mean Platelet Volume 7.6; Monocytes # (A) 0.5 k/uL (0-1.0); Monocytes % (A) 6 %; Neutrophils # (A) 4.3 k/uL (1.3-7.7); Neutrophils % (A) 56 %; Platelet Count 249 k/uL (150-450); RBC 4.14 m/uL (3.80-5.40); RDW 14.2 % (11.5-15.5); WBC 7.6 k/uL (3.8-10.6)
[2017-05-27 17:49] LABS: Appearance,Urine Clear (Clear); Bacteria,Urine Rare /hpf; Bilirubin,Urine Negative (Negative); Blood,Urine Moderate (Negative); Color,Urine Yellow; Glucose,Urine (UA) Negative (Negative); Ketones,Urine Negative (Negative); Leukocyte Esterase,Urine Negative (Negative); Nitrite,Urine Negative (Negative); Protein,Urine Negative (Negative); RBC,Urine 2 /hpf (0-5); Specific Gravity,Urine 1.005 (1.001-1.035); Squamous Epithelial Cell,Urine 2 /hpf (0-4); Urobilinogen,Urine <2.0 mg/dL (<2.0); WBC,Urine 2 /hpf (0-5)
[2017-05-27 17:58] LABS: ALT 118 U/L (9-52); AST 83 U/L (14-36); Albumin 3.8 g/dL (3.5-5.0); Alkaline Phosphatase 97 U/L (38-126); Amylase 31 U/L (30-110); Anion Gap 11 mmol/L; Blood Urea Nitrogen 9 mg/dL (7-17); Calcium 9.4 mg/dL (8.4-10.2); Carbon Dioxide 25 mmol/L (22-30); Chloride 104 mmol/L (98-107); Glucose 87 mg/dL (74-99); Lipase 47 U/L (23-300); Potassium 3.8 mmol/L (3.5-5.1); Sodium 140 mmol/L (137-145); Total Bilirubin 0.2 mg/dL (0.2-1.3); Total Protein 6.5 g/dL (6.3-8.2)
--- NOTE | 2017-05-27 18:18 | US ---
EXAMINATION TYPE: US gallbladder DATE OF EXAM: 05/27/2017 COMPARISON: NONE CLINICAL HISTORY: Pain. EXAM MEASUREMENTS: Liver Length: 14.6 cm Gallbladder Wall: 0.2 cm CBD: 0.2 cm Right Kidney: 11.3 x 4.3 x 5.2 cm Pancreas: Tail obscured by overlying bowel gas Liver: wnl Gallbladder: wnl Evidence for sonographic Montez's sign: no CBD: wnl Right Kidney: Inferior pole obscured by overlying bowel gas IMPRESSION: Normal exam. No evidence of gallstones or dilated ducts.
--- NOTE | 2017-05-27 18:28 | XR ---
EXAMINATION TYPE: XR KUB DATE OF EXAM: 05/27/2017 COMPARISON: 03/21/2017 HISTORY: Abdominal pain TECHNIQUE: 2 views FINDINGS: There is no sign of intestinal obstruction or pneumoperitoneum. Fecal pattern is normal. Samira ng bases are clear. There are no pathologic calcifications over the kidneys. IMPRESSION: Nonacute abdomen. No change.
[2017-05-27 19:08] VITALS: BP 120/82; PULSE 73; RESP 16; TEMP 98.1
== END 2017-05-27 19:21 | disposition home or self-care (01) ==
LOC: EC 16:42
DX: K80.50 Calculus of bile duct without cholangitis or cholecystitis without obstruction (principal); F41.9 Anxiety disorder, unspecified; F31.9 Bipolar disorder, unspecified; F17.200 Nicotine dependence, unspecified, uncomplicated; Z79.899 Other long term (current) drug therapy; Z88.0 Allergy status to penicillin; Z53.20 Procedure and treatment not carried out because of patient's decision for unspecified reasons
CPT/HCPCS: 36415; 80053; 82150; 83690; 85025; 81001; 81025; 74018; 76705; 99285; 96374; 96361; J1170

== ENCOUNTER → 2017-05-31 | Outpatient (CLI) | payer OTHER ==
--- NOTE | 2017-05-31 09:17 | NM ---
EXAMINATION TYPE: NM hepatobiliary w EF DATE OF EXAM: 05/31/2017 COMPARISON: NONE HISTORY: Right upper quadrant pain TECHNIQUE: After the intravenous administration of 5.7 mCi Tc 99m Mebrofenin hepatobiliary scintigrap hy is performed. Immediate images post injection. FINDINGS: There is satisfactory initial accumulation of tracer by the liver. The gallbladder is visualized wit hin 10 minutes. The small bowel activity is noted within 8 minutes. At one hour 8 ounces of oral en sure plus is given to mimic CCK and gallbladder ejection fraction is calculated at 7%. IMPRESSION: Diminished gallbladder ejection fraction which may reflect chronic cholecystitis and/or b iliary dyskinesia.
== END | disposition home or self-care (01) ==
LOC: RADNMMAIN 06:46
PROVIDERS: ATTEND Family Medicine
DX: R10.11 Right upper quadrant pain (principal)
CPT/HCPCS: 78226; A9537

== ENCOUNTER 2017-06-13 08:43 | Emergency (ER) | payer OTHER ==
[2017-06-13] MEDS ORDERED: ONDANSETRON 4 MG/2 ML VIAL IVP STA (09:09)
[2017-06-13] MEDS ORDERED: HYDROmorphone 0.5 MG/0.5 ML SYRINGE IVP STA (09:09)
[2017-06-13] MEDS ORDERED: SODIUM CHLORIDE 0.9% 1,000 ML IV STA (09:09)
--- NOTE | 2017-06-13 09:11 | ED ---
General Adult HPI <Christian Dee - Last Filed: 06/13/17 12:24> - General Source: patient, RN notes reviewed Mode of arrival: ambulatory Limitations: no limitations <Michael Aguilar - Last Filed: 06/13/17 12:32> - General Chief complaint: Abdominal Pain Stated complaint: Gallbladder pain Time Seen by Provider: 06/13/17 09:01 - History of Present Illness Initial comments: Patient is a 32-year-old female who is scheduled for cholecystectomy in 2 days, presenting today with chief complaint of increased abdominal pain. Patient does admit to pain right side of the abdomen. States that there has been symptoms of nausea vomiting. States she feels that she's having a difficult time eating because of the nausea. Patient denies any new symptoms today. Patient denies any recent fever, chills, shortness of breath, chest pain, back pain, numbness or tingling, dysuria or hematuria, constipation or diarrhea, headaches or visual changes, or any other complaints. (Michael Aguilar) - Related Data Home Medications Medication Instructions Recorded Confirmed Cyclobenzaprine [Flexeril] 10 mg PO HS 04/18/17 06/13/17 ARIPiprazole [Abilify] 10 mg PO HS 05/27/17 06/13/17 Loratadine [Claritin] 10 mg PO HS 05/27/17 06/13/17 Ondansetron HCl [Zofran] 8 mg PO TID PRN 05/27/17 06/13/17 Pantoprazole Sodium [Protonix] 40 mg PO HS 05/27/17 06/13/17 Sertraline [Zoloft] 100 mg PO HS 05/27/17 06/13/17 Acetaminophen-Codeine 300-30mg 1 tab PO Q6H PRN 06/09/17 06/13/17 [Tylenol #3] Medroxyprogesterone Acetate 150 mg IM Q90D 06/09/17 06/13/17 [Depo-Provera] SUMAtriptan SUCCINATE [Imitrex] 50 mg PO DAILY PRN 06/09/17 06/13/17 Previous Rx's Medication Instructions Recorded Ondansetron Odt [Zofran ODT] 2 tab PO Q8HR PRN #20 tab 06/13/17 Allergies Allergy/AdvReac Type Severity Reaction Status Date / Time adhesive tape Allergy skin red Verified 06/13/17 08:53 amoxicillin [Amoxicillin] Allergy Rash/Hives Verified 06/13/17 09:20 Penicillins Allergy Confusion Verified 06/13/17 08:53 Review of Systems ROS Other: All systems not noted in ROS Statement are negative. <Christian Dee Denise - Last Filed: 06/13/17 12:24> ROS Other: All systems not noted in ROS Statement are negative. <Michael Aguilar - Last Filed: 06/13/17 12:32> ROS Statement: Those systems with pertinent positive or pertinent negative responses have been documented in the HPI. Past Medical History Past Medical History: Thyroid Disorder Additional Past Medical History / Comment(s): genital herpes low magnesium levels and hypoglycemia migraines History of Any Multi-Drug Resistant Organisms: None Reported Past Surgical History: No Surgical Hx Reported Additional Past Surgical History / Comment(s): wisdom teeth Past Anesthesia/Blood Transfusion Reactions: No Reported Reaction Past Psychological History: ADD/ADHD, Anxiety, Bipolar Smoking Status: Light tobacco smoker Past Alcohol Use History: None Reported Past Drug Use History: None Reported - Past Family History Son(s) Family Medical History: Cancer Additional Family Medical History / Comment(s): hepatoblastoma Mother Family Medical History: Liver Disease Additional Family Medical History / Comment(s): Hepatitis C <Michael Aguilar - Last Filed: 06/13/17 12:32> General Exam <Christian Dee Denise - Last Filed: 06/13/17 12:24> Limitations: no limitations <Michael Aguilar - Last Filed: 06/13/17 12:32> - General Exam Comments Initial Comments: General: The patient is awake and alert, in no distress, and does not appear acutely ill. Eye: Pupils are equal, round and reactive to light, extra-ocular movements are intact. No nystagmus. There is normal conjunctiva bilaterally. No signs of icterus. Ears, nose, mouth and throat: There are moist mucous membranes and no oral lesions. Neck: The neck is supple, there is no tenderness or JVD. Cardiovascular: There is a regular rate and rhythm. No murmur, rub or gallop is appreciated. Respiratory: Lungs are clear to auscultation, respirations are non-labored, breath sounds are equal. No wheezes, stridor, rales, or rhonchi. Gastrointestinal: Normal appearance. Normal bowel sounds. Soft on palpation. Patient does have tenderness both right and left lower quadrants with mild tenderness in the right upper quadrant. No rebound tenderness. No guarding. No CVA tenderness. Musculoskeletal: Normal ROM, no tenderness. Strength 5/5. Sensation intact. Pulses equal bilaterally 2+. Neurological: A&O x 3. CN II-XII intact, There are no obvious motor or sensory deficits. Coordination appears grossly intact. Speech is normal. Skin: Skin is warm and dry and no rashes or lesions are noted. Psychiatric: Cooperative, appropriate mood & affect, normal judgment. (Michael Aguilar) Vital Signs 06/13/17 06/13/17 08:51 10:03 Temperature 97.8 F Pulse Rate 90 71 Respiratory 20 18 Rate Blood Pressure 127/95 131/85 O2 Sat by Pulse 99 100 Oximetry Medical Decision Making - Lab Data Result diagrams: 06/13/17 09:27 06/13/17 09:27 <Christian Dee - Last Filed: 06/13/17 12:24> - Lab Data Result diagrams: 06/13/17 09:27 06/13/17 09:27 <Michael Aguilar - Last Filed: 06/13/17 12:32> - Medical Decision Making Case discussed with Dr. Daniels, patient is okay for outpatient follow-up. She will maintain her appointment for scheduled cholecystectomy on Tuesday. ( Christian Dee) - Lab Data Lab Results 06/13/17 06/13/17 06/13/17 Range/Units 09:27 09:27 09:27 WBC 5.3 (3.8-10.6) k/uL RBC 4.51 (3.80-5.40) m/uL Hgb 13.3 (11.4-16.0) gm/dL Hct 40.7 (34.0-46.0) % MCV 90.4 (80.0-100.0) fL MCH 29.5 (25.0-35.0) pg MCHC 32.6 (31.0-37.0) g/dL RDW 13.0 (11.5-15.5) % Plt Count 291 (150-450) k/uL Neutrophils % 59 % Lymphocytes % 30 % Monocytes % 7 % Eosinophils % 1 % Basophils % 0 % Neutrophils # 3.1 (1.3-7.7) k/uL Lymphocytes # 1.6 (1.0-4.8) k/uL Monocytes # 0.4 (0-1.0) k/uL Eosinophils # 0.1 (0-0.7) k/uL Basophils # 0.0 (0-0.2) k/uL Sodium 143 (137-145) mmol/L Potassium 4.0 (3.5-5.1) mmol/L Chloride 108 H (98-107) mmol/L Carbon Dioxide 23 (22-30) mmol/L Anion Gap 12 mmol/L BUN 6 L (7-17) mg/dL Creatinine 0.62 (0.52-1.04) mg/dL Est GFR (MDRD) Af Amer >60 (>60 ml/min/1.73 sqM) Est GFR (MDRD) Non-Af >60 (>60 ml/min/1.73 sqM) Glucose 89 (74-99) mg/dL Calcium 9.9 (8.4-10.2) mg/dL Total Bilirubin 0.2 (0.2-1.3) mg/dL AST 38 H (14-36) U/L ALT 44 (9-52) U/L Alkaline Phosphatase 106 (38-126) U/L Total Protein 7.2 (6.3-8.2) g/dL Albumin 4.3 (3.5-5.0) g/dL Amylase 38 (30-110) U/L Lipase 62 (23-300) U/L Urine Color Light Yellow Urine Appearance Cloudy H (Clear) Urine pH 5.5 (5.0-8.0) Ur Specific [place] 1.005 (1.001-1.035) Urine Protein Negative (Negative) Urine Glucose (UA) Negative (Negative) Urine Ketones Negative (Negative) Urine Blood Small H (Negative) Urine Nitrite Negative (Negative) Urine Bilirubin Negative (Negative) Urine Urobilinogen <2.0 (<2.0) mg/dL Ur Leukocyte Esterase Moderate H (Negative) Urine RBC 2 (0-5) /hpf Urine WBC 2 (0-5) /hpf Ur Squamous Epith Cells 10 H (0-4) /hpf Urine Bacteria Occasional H (None) /hpf Urine Mucus Rare H (None) /hpf Disposition <Christian Dee Denise - Last Filed: 06/13/17 12:24> Time of Disposition: 12:30 <Michael Aguilar - Last Filed: 06/13/17 12:32> Clinical Impression: Abdominal pain Disposition: HOME SELF-CARE Condition: Good Instructions: Abdominal Pain (ED) Additional Instructions: Please use medication as discussed. Please follow-up with family doctor in the next 2 days of symptoms have not improved. Please return to emergency room if the symptoms increase or worsen or for any other concerns. Prescriptions: Ondansetron Odt [Zofran ODT] 2 tab PO Q8HR PRN #20 tab PRN Reason: Nausea Referrals: Erin Correa DO [Primary Care Provider] - 1-2 days
[2017-06-13 09:35] LABS: Basophils % (A) 0 %; Eosinophils # (A) 0.1 k/uL (0-0.7); Eosinophils % (A) 1 %; HCT 40.7 % (34.0-46.0); HGB 13.3 gm/dL (11.4-16.0); Lymphocytes # (A) 1.6 k/uL (1.0-4.8); Lymphocytes % (A) 30 %; MCH 29.5 pg (25.0-35.0); MCHC 32.6 g/dL (31.0-37.0); MCV 90.4 fL (80.0-100.0); Mean Platelet Volume 6.8; Monocytes # (A) 0.4 k/uL (0-1.0); Monocytes % (A) 7 %; Neutrophils # (A) 3.1 k/uL (1.3-7.7); Neutrophils % (A) 59 %; Platelet Count 291 k/uL (150-450); RBC 4.51 m/uL (3.80-5.40); WBC 5.3 k/uL (3.8-10.6)
[2017-06-13 09:40] LABS: Appearance,Urine Cloudy (Clear); Bacteria,Urine Occasional /hpf; Bilirubin,Urine Negative (Negative); Blood,Urine Small (Negative); Color,Urine Light Yellow; Glucose,Urine (UA) Negative (Negative); Ketones,Urine Negative (Negative); Leukocyte Esterase,Urine Moderate (Negative); Mucus,Urine Rare /hpf; Nitrite,Urine Negative (Negative); PH, Urine 5.5 (5.0-8.0); Protein,Urine Negative (Negative); RBC,Urine 2 /hpf (0-5); Specific Gravity,Urine 1.005 (1.001-1.035); Squamous Epithelial Cell,Urine 10 /hpf (0-4); Urobilinogen,Urine <2.0 mg/dL (<2.0); WBC,Urine 2 /hpf (0-5)
[2017-06-13 09:48] LABS: ALT 44 U/L (9-52); AST 38 U/L (14-36); Albumin 4.3 g/dL (3.5-5.0); Alkaline Phosphatase 106 U/L (38-126); Amylase 38 U/L (30-110); Anion Gap 12 mmol/L; Blood Urea Nitrogen 6 mg/dL (7-17); Calcium 9.9 mg/dL (8.4-10.2); Carbon Dioxide 23 mmol/L (22-30); Chloride 108 mmol/L (98-107); Glucose 89 mg/dL (74-99); Lipase 62 U/L (23-300); Sodium 143 mmol/L (137-145); Total Bilirubin 0.2 mg/dL (0.2-1.3); Total Protein 7.2 g/dL (6.3-8.2)
--- NOTE | 2017-06-13 10:00 | XR ---
EXAMINATION TYPE: XR KUB DATE OF EXAM: 06/13/2017 9:55 AM CLINICAL HISTORY: Abdominal pain not further specified per order. Increased severe pain today per pa uriel. TECHNIQUE: Two Upright KUB images of the abdomen are obtained. COMPARISON: Abdominal x-ray May 27, 2017. FINDINGS: Scattered gas is seen in non-distended small bowel loops. Gas and fecal material is seen in non-distended colon. Right-sided pelvic phleboliths are redemonstrated. There is no visceromegaly, p neumoperitoneum, or abnormal calcification appreciated. The lung bases are clear and the osseous stru ctures are intact. Bilateral metallic nipple ornaments incidentally noted. IMPRESSION: Overall nonobstructive bowel gas pattern. No significant change from prior.
[2017-06-13 12:51] VITALS: BP 98/55; PULSE 66; RESP 20; TEMP 98.2
== END 2017-06-13 12:50 | disposition home or self-care (01) ==
LOC: EC 08:43
DX: R10.9 Unspecified abdominal pain (principal); R11.2 Nausea with vomiting, unspecified; F31.9 Bipolar disorder, unspecified; F41.9 Anxiety disorder, unspecified; F17.200 Nicotine dependence, unspecified, uncomplicated; Z79.3 Long term (current) use of hormonal contraceptives; Z79.899 Other long term (current) drug therapy; Z88.0 Allergy status to penicillin; Z91.09 Other allergy status, other than to drugs and biological substances
CPT/HCPCS: 36415; 80053; 82150; 83690; 85025; 81001; 74018; 99284; 96374; 96375; 96361; J2405; J1170

== ENCOUNTER 2017-06-15 06:54 | Day surgery (SDC) | payer OTHER ==
[2017-06-09 15:57] VITALS: BMI 34.2
[~2017-06-15 06:54] MED LIST: DEXAMETHASONE SOD PHOSPHATE 10 MG/ML 1 ML VIAL IV ONE; FAMOTIDINE 20 MG/2 ML VIAL IV PRN; HEPARIN SODIUM,PORCINE 5,000 UNIT/ML 1 ML VIAL SQ ONE; LACTATED RINGERS 1,000 ML IV SCH; LIDOCAINE 1% 20 ML VIAL (10MG/ML) FOR IV START INTRADERMA PRN; MIDAZOLAM 2 MG/2 ML VIAL IV PRN; ONDANSETRON 4 MG/2 ML VIAL IVP ONE; SCOPOLAMINE 1.5MG/72HR PATCH TRANSDERM ONE; ceFAZolin IN SWFI 2 GM/20 ML SYRINGE IVP ONE
[2017-06-15 07:27] LABS: Glucose,Whole Blood 87 mg/dL (75-99)
[2017-06-15] MEDS ORDERED: GLYCOPYRROLATE 0.2 MG/ML 2 ML VIAL ONE (08:00)
[2017-06-15] MEDS ORDERED: MIDAZOLAM 2 MG/2 ML VIAL ONE (08:00)
[2017-06-15] MEDS ORDERED: NEOSTIGMINE 1 MG/ML 10 ML VIAL ONE (08:00)
[2017-06-15] MEDS ORDERED: PROPOFOL 10 MG/ML 20 ML VIAL IV ONE (08:00)
[2017-06-15] MEDS ORDERED: KETOROLAC 30 MG/ML 1 ML VIAL ONE (08:00)
[2017-06-15] MEDS ORDERED: ROCURONIUM BROMIDE 10 MG/ML 10 ML VIAL IV ONE (08:00)
[2017-06-15] MEDS ORDERED: LIDOCAINE 1% INJ 10MG/ML (20 ML MDV) ONE (08:00)
[2017-06-15] MEDS ORDERED: fentaNYL (PF) 50 MCG/ML 2 ML AMP ONE (08:00)
--- NOTE | 2017-06-15 08:01 | P.GSHP ---
History of Present Illness H&P Date: 06/15/17 Chief Complaint: Right upper quadrant pain This is a 32-year-old female referred from Dr. Erin Correa. Patient presents today for laparoscopic cholestatic. She's had complaints of right quadrant pain. Her recent HIDA scan shows a diminished ejection fraction consistent with biliary dyskinesia and chronic cholecystitis. Past Medical History Past Medical History: Thyroid Disorder Additional Past Medical History / Comment(s): genital herpes low magnesium levels and hypoglycemia migraines History of Any Multi-Drug Resistant Organisms: None Reported Past Surgical History: No Surgical Hx Reported Additional Past Surgical History / Comment(s): wisdom teeth Past Anesthesia/Blood Transfusion Reactions: No Reported Reaction Past Psychological History: ADD/ADHD, Anxiety, Bipolar Smoking Status: Light tobacco smoker Past Alcohol Use History: None Reported Additional Past Alcohol Use History / Comment(s): smoker for 3 years 3 cig/day states mostly uses vapor Past Drug Use History: None Reported - Past Family History Son(s) Family Medical History: Cancer Additional Family Medical History / Comment(s): hepatoblastoma Mother Family Medical History: Liver Disease Additional Family Medical History / Comment(s): Hepatitis C Medications and Allergies Home Medications Medication Instructions Recorded Confirmed Type Cyclobenzaprine [Flexeril] 10 mg PO HS 04/18/17 06/13/17 History ARIPiprazole [Abilify] 10 mg PO HS 05/27/17 06/13/17 History Loratadine [Claritin] 10 mg PO HS 05/27/17 06/13/17 History Ondansetron HCl [Zofran] 8 mg PO TID PRN 05/27/17 06/13/17 History Pantoprazole Sodium [Protonix] 40 mg PO HS 05/27/17 06/13/17 History Sertraline [Zoloft] 100 mg PO HS 05/27/17 06/13/17 History Acetaminophen-Codeine 300-30mg 1 tab PO Q6H PRN 06/09/17 06/13/17 History [Tylenol #3] Medroxyprogesterone Acetate 150 mg IM Q90D 06/09/17 06/13/17 History [Depo-Provera] SUMAtriptan SUCCINATE [Imitrex] 50 mg PO DAILY PRN 06/09/17 06/13/17 History Ondansetron Odt [Zofran ODT] 2 tab PO Q8HR PRN #20 tab 06/13/17 Rx Allergies Allergy/AdvReac Type Severity Reaction Status Date / Time adhesive tape Allergy skin red Verified 06/13/17 08:53 amoxicillin [Amoxicillin] Allergy Rash/Hives Verified 06/13/17 09:20 Penicillins Allergy Confusion Verified 06/13/17 08:53 Surgical - Exam Vital Signs Temp Pulse Resp BP Pulse Ox 98.3 F 74 18 116/77 100 06/15/17 07:18 06/15/17 07:18 06/15/17 07:18 06/15/17 07:18 06/15/17 07:18 - General well developed, no distress - Eyes PERRL - ENT normal pinna - Neck no masses - Respiratory normal expansion - Cardiovascular Rhythm: regular - Abdomen Abdomen: soft, non tender Assessment and Plan Assessment: Chronic cholecystitis. We'll perform laparoscopic cholecystectomy.
[2017-06-15] MEDS ORDERED: BUPIVACAINE (PF) 0.25% 30 ML VIAL SQ ONE (08:31)
[2017-06-15] MEDS: HYDROmorphone 0.5 MG/0.5 ML SYRINGE IVP PRN ×3 (09:00→09:25)
--- NOTE | 2017-06-15 09:11 | P.OP ---
Date of Procedure: 06/15/17 Preoperative Diagnosis: Cholecystitis Postoperative Diagnosis: Cholecystitis Procedure(s) Performed: Laparoscopic cholecystectomy Anesthesia: FRANCISCO Surgeon: Wei Daniels Estimated Blood Loss (ml): 5 Pathology: other (Gallbladder) Condition: stable Disposition: PACU Description of Procedure: The patient was placed on the operating table. The patient received a general endotracheal tube anesthesia. The patients abdomen was prepped and draped in the usual sterile fashion. Through an infraumbilical stab incision, the fascia of the anterior abdominal wall was grasped with a pair of Kochers and then the Veress needle was placed in the peritoneal cavity. Position of the Veress needle was confirmed with positive drop test. The abdomen was then insufflated. After adequate insufflation, the 10 mm trocar was placed in the peritoneal cavity. Following this the laparoscope was placed in the peritoneal cavity. The patient was placed in the head-up, right side up position and then a 5 mm trocar was placed in the right lateral and right subcostal position under direct visualization. A 8 mm trocar was placed in the epigastric position. The gallbladder was grasped in the fundus and infundibulum. Traction on the gallbladder was placed in the lateral and the cephalad positions. The triangle of Calot was visualized.. The cystic duct was bluntly dissected until the union of the cystic duct and common bile duct was seen. The cystic duct was then divided and sealed with the Harmonic scissors. A PDS Endoloop was then placed throughout the cystic duct stump. The cystic artery divided and sealed with the Harmonic scissors. The gallbladder was then removed from the liver bed using Harmonic scissors. The gallbladder was then extracted through the epigastric port site. Operative field was checked for any bleeding spots and Harmonic scissors was used to coagulate the liver bed. The abdomen was irrigated. The trocars were removed. The skin was closed using interrupted 3-0 Vicryl suture. Dermabond dressing were applied. The patient tolerated the procedure well.
[2017-06-15 09:12] VITALS: TEMP 97.8
[2017-06-15] MEDS ORDERED: LACTATED RINGERS 1,000 ML IV ONE ×2 (09:15)
[2017-06-15 09:31] VITALS: RESP 16
[2017-06-15] MEDS ORDERED: HYDROcodone/APAP 7.5-325MG 1 EACH TAB PO ONE (10:16)
[2017-06-15 10:42] VITALS: BP 111/80; PULSE 49
== END 2017-06-15 10:50 | disposition home or self-care (01) ==
LOC: OR 06:54
PROVIDERS: ATTEND Surgery
DX: K81.1 Chronic cholecystitis (principal); F17.210 Nicotine dependence, cigarettes, uncomplicated; G43.909 Migraine, unspecified, not intractable, without status migrainosus; F41.9 Anxiety disorder, unspecified; F90.9 Attention-deficit hyperactivity disorder, unspecified type; F31.9 Bipolar disorder, unspecified; F39 Unspecified mood [affective] disorder; E07.9 Disorder of thyroid, unspecified; Z88.0 Allergy status to penicillin; Z91.048 Other nonmedicinal substance allergy status; Z79.899 Other long term (current) drug therapy
CPT/HCPCS: 81025; 88304; 47562; J2250; J1644; J1100; J2710; J2405; J2001; J3010; J1885; J2704; J1170; J0690

== ENCOUNTER 2017-06-16 00:41 | Emergency (ER) | payer OTHER ==
[2017-06-16 00:48] VITALS: BP 136/84; PULSE 70; RESP 20; TEMP 99
--- NOTE | 2017-06-16 01:01 | ED ---
General Adult HPI - General Chief complaint: Abdominal Pain Stated complaint: Surgical Incision Problem Time Seen by Provider: 06/16/17 00:49 Source: patient, RN notes reviewed Mode of arrival: ambulatory Limitations: no limitations - History of Present Illness Initial comments: 32-year-old female presents for blood from an incision site for a cholecystectomy that she then yesterday. She states she has a little bit of blood on the bandage today so she thought that she should be seen. Patient states that her whole belly does feel distended but that has been since the procedure. She denies any worsening pain she states exactly like the pain that she had ever since they have finished the procedure. She was concerned due to the blood that show some drainage so she thought that she should be seen. Patient denies any fever chills any cough cold like symptoms. Patient denies any other complaints. Patient denies any recent fever, chills, shortness of breath, chest pain, back pain, nausea vomiting, numbness or tingling, dysuria or hematuria, constipation or diarrhea, headaches or visual changes, or any other current symptoms. - Related Data Home Medications Medication Instructions Recorded Confirmed Cyclobenzaprine [Flexeril] 10 mg PO HS 04/18/17 06/16/17 ARIPiprazole [Abilify] 10 mg PO HS 05/27/17 06/16/17 Loratadine [Claritin] 10 mg PO HS 05/27/17 06/16/17 Ondansetron HCl [Zofran] 8 mg PO TID PRN 05/27/17 06/16/17 Pantoprazole Sodium [Protonix] 40 mg PO HS 05/27/17 06/16/17 Sertraline [Zoloft] 100 mg PO HS 05/27/17 06/16/17 Acetaminophen-Codeine 300-30mg 1 tab PO Q6H PRN 06/09/17 06/16/17 [Tylenol #3] Medroxyprogesterone Acetate 150 mg IM Q90D 06/09/17 06/16/17 [Depo-Provera] SUMAtriptan SUCCINATE [Imitrex] 50 mg PO DAILY PRN 06/09/17 06/16/17 Previous Rx's Medication Instructions Recorded Ondansetron Odt [Zofran ODT] 2 tab PO Q8HR PRN #20 tab 06/13/17 Docusate [Colace] 100 mg PO BID #20 capsule 06/15/17 HYDROcodone/APAP 7.5-325MG [[place] 1 each PO Q4H PRN #30 tab 06/15/17 7.5] Allergies Allergy/AdvReac Type Severity Reaction Status Date / Time adhesive tape Allergy skin red Verified 06/13/17 08:53 amoxicillin [Amoxicillin] Allergy Rash/Hives Verified 06/13/17 09:20 Penicillins Allergy Confusion Verified 06/13/17 08:53 Review of Systems ROS Statement: Those systems with pertinent positive or pertinent negative responses have been documented in the HPI. ROS Other: All systems not noted in ROS Statement are negative. Past Medical History Past Medical History: Thyroid Disorder Additional Past Medical History / Comment(s): genital herpes low magnesium levels and hypoglycemia migraines History of Any Multi-Drug Resistant Organisms: None Reported Past Surgical History: No Surgical Hx Reported, Cholecystectomy Additional Past Surgical History / Comment(s): wisdom teeth Past Anesthesia/Blood Transfusion Reactions: No Reported Reaction Past Psychological History: ADD/ADHD, Anxiety, Bipolar Smoking Status: Light tobacco smoker Past Alcohol Use History: None Reported Past Drug Use History: None Reported - Past Family History Son(s) Family Medical History: Cancer Additional Family Medical History / Comment(s): hepatoblastoma Mother Family Medical History: Liver Disease Additional Family Medical History / Comment(s): Hepatitis C General Exam - General Exam Comments Initial Comments: General: The patient is awake and alert, in no distress, and does not appear acutely ill. Eye: Pupils are equal, round. Ears, nose, mouth and throat: There are moist mucous membranes. Neck: The neck is supple, there is no tenderness. Cardiovascular: There is a regular rate and rhythm. No murmur, rub or gallop is appreciated. Respiratory: Lungs are clear to auscultation, respirations are non-labored, breath sounds are equal. No wheezes, stridor, rales, or rhonchi. Gastrointestinal: Patient does appear to have multiple surgical incisions. The mop are most in the epigastric area has a small amount of blood noted on the original bandage, no active bleeding at this time, no drainage to palpation , Soft, distended, non-tender abdomen without masses or organomegaly noted. There is no rebound or guarding present. No CVA tenderness. Bowel sounds are unremarkable. Back: There is no tenderness to palpation in the midline. There is no obvious deformity. No rashes noted. Musculoskeletal: Normal ROM, no tenderness, There is no pedal edema. There is no calf tenderness or swelling. Sensation intact. Pulses equal bilaterally 2+. Neurological: CN II-XII intact, There are no obvious motor or sensory deficits. Coordination appears grossly intact. Speech is normal. Skin: Skin is warm and dry and no rashes or lesions are noted. Psychiatric: Cooperative, appropriate mood & affect, normal judgment. Limitations: no limitations Course Vital Signs 06/16/17 00:43 Temperature 99.0 F Pulse Rate 70 Respiratory 20 Rate Blood Pressure 136/84 O2 Sat by Pulse 100 Oximetry Medical Decision Making - Medical Decision Making 32-year-old female presents emergency department with a chief complaint of concern for bleeding at surgical site. At this time it does appear to be very mild. There is no drainage or bleeding on exam. This and we discussed abdominal pain is most likely due to just postop pain and she is in agreement with this. This time we discussed follow-up with Dr. Yañez and return parameters all questions. Patient stated she understood and she is agreement this plan. This time the patient will be discharged. Disposition Clinical Impression: Presence of surgical incision, Abdominal pain Disposition: HOME SELF-CARE Condition: Stable Instructions: Abdominal Pain (ED) Additional Instructions: Please use medication as discussed. Please follow up with family doctor if symptoms have not improved over the next two days. Please return to the emergency room if your symptoms increase or worsen or for any other concerns. Referrals: Erin Correa DO [Primary Care Provider] - 1-2 days Time of Disposition: :01
== END 2017-06-16 01:12 | disposition home or self-care (01) ==
LOC: EC 00:41
DX: R10.9 Unspecified abdominal pain (principal); F90.9 Attention-deficit hyperactivity disorder, unspecified type; F31.9 Bipolar disorder, unspecified; F41.9 Anxiety disorder, unspecified; F17.200 Nicotine dependence, unspecified, uncomplicated; Z79.899 Other long term (current) drug therapy; Z79.3 Long term (current) use of hormonal contraceptives; Z88.0 Allergy status to penicillin; Z91.048 Other nonmedicinal substance allergy status; Z90.49 Acquired absence of other specified parts of digestive tract
CPT/HCPCS: 99283

== ENCOUNTER 2017-07-06 19:11 | Emergency (ER) | payer OTHER ==
[2017-07-06 19:17] VITALS: BP 134/79; PULSE 95; RESP 20; TEMP 97.6
--- NOTE | 2017-07-06 19:32 | ED ---
General Adult HPI - General Chief complaint: Extremity Injury, Lower Stated complaint: right foot pain radiating upwards Time Seen by Provider: 07/06/17 19:19 Source: patient, family, RN notes reviewed Mode of arrival: ambulatory Limitations: no limitations - History of Present Illness Initial comments: This is a 32-year-old female presents to the emergency department with chief complaint of right foot pain. Patient states that she was out of work for 2 weeks while recovering from a gallbladder surgery. She states that she returned on Tuesday. Approximately one hour into standing on her feet at work she noticed pain in her right foot. She states that the pain gets worse throughout the day. She states that she has taken Tylenol 3 and ibuprofen and neither have provided relief. She states that the pain is localized to her heel and medial aspect of her right foot. Denies any specific injury, trauma or falls. Patient does state that she has a history of plantar fasciitis and calcaneal spurs. Denies fever or chills, shortness of breath or chest pain, doubt pain, nausea or vomiting, numbness or tingling. - Related Data Home Medications Medication Instructions Recorded Confirmed Cyclobenzaprine [Flexeril] 10 mg PO HS 04/18/17 07/06/17 ARIPiprazole [Abilify] 10 mg PO HS 05/27/17 07/06/17 Loratadine [Claritin] 10 mg PO HS 05/27/17 07/06/17 Pantoprazole Sodium [Protonix] 40 mg PO HS 05/27/17 07/06/17 Sertraline [Zoloft] 100 mg PO HS 05/27/17 07/06/17 Acetaminophen-Codeine 300-30mg 1 tab PO Q6H PRN 06/09/17 07/06/17 [Tylenol #3] Medroxyprogesterone Acetate 150 mg IM Q90D 06/09/17 07/06/17 [Depo-Provera] SUMAtriptan SUCCINATE [Imitrex] 50 mg PO DAILY PRN 06/09/17 07/06/17 HYDROcodone/APAP 7.5-325MG [[place] 1 tab PO Q4H PRN 07/06/17 07/06/17 7.5] Previous Rx's Medication Instructions Recorded Docusate [Colace] 100 mg PO BID #20 capsule 06/15/17 Allergies Allergy/AdvReac Type Severity Reaction Status Date / Time adhesive tape Allergy skin red Verified 07/06/17 19:51 amoxicillin [Amoxicillin] Allergy Rash/Hives Verified 07/06/17 19:51 Penicillins Allergy Confusion Verified 07/06/17 19:51 Review of Systems ROS Statement: Those systems with pertinent positive or pertinent negative responses have been documented in the HPI. ROS Other: All systems not noted in ROS Statement are negative. Past Medical History Past Medical History: Thyroid Disorder Additional Past Medical History / Comment(s): genital herpes low magnesium levels and hypoglycemia migraines History of Any Multi-Drug Resistant Organisms: None Reported Past Surgical History: No Surgical Hx Reported, Cholecystectomy Additional Past Surgical History / Comment(s): wisdom teeth Past Anesthesia/Blood Transfusion Reactions: No Reported Reaction Past Psychological History: ADD/ADHD, Anxiety, Bipolar Smoking Status: Light tobacco smoker Past Alcohol Use History: None Reported Past Drug Use History: None Reported - Past Family History Son(s) Family Medical History: Cancer Additional Family Medical History / Comment(s): hepatoblastoma Mother Family Medical History: Liver Disease Additional Family Medical History / Comment(s): Hepatitis C General Exam - General Exam Comments Initial Comments: General: Awake and alert, well-developed; in no apparent distress. Disheveled in appearance. HEENT: Head atraumatic, normocephalic. Pupils are equal, round and reactive to light. Extraocular movements intact. Oropharynx moist without erythema or exudate. Poor dentition throughout. Neck: Supple. Normal ROM. Cardiovascular: Regular rate and rhythm. No murmurs, rubs or gallops. Chest symmetrical. Respiratory: Lungs clear to auscultation bilaterally. No wheezes, rales or rhonchi. Normal respiratory effort with no use of accessory muscles. Musculoskeletal: Normal ROM of right foot and right ankle. No obvious gross deformities, swelling, erythema or contusions noted. There is tenderness on palpation over plantar fascia as well as medial aspect arch of foot. Sensation is intact. Pedal pulses are 2+ equal and palpable bilaterally. Skin: [place], warm and dry without rashes or lesions. Neurological: Alert and oriented x3. CN II-XII grossly intact. Speech is fluent and answers are appropriate. No focal neuro deficits. Psychiatric: Normal mood and affect. No overt signs of depression or anxiety noted. Limitations: no limitations Course Vital Signs 07/06/17 19:12 Temperature 97.6 F Pulse Rate 95 Respiratory 20 Rate Blood Pressure 134/79 O2 Sat by Pulse 100 Oximetry Medical Decision Making - Medical Decision Making This is a 32-year-old female who presents to the emergency department with chief complaint of right foot pain. Denies any specific injury or trauma. Patient states that pain gets worse throughout the day with weightbearing and ambulation. X-ray revealed no acute fractures or dislocations. It did reveal calcaneal spurring, which patient was are ready aware of. She states that she does have a manager data center that she can follow up with. She also states that she has ibuprofen 800 at home that she can take. She also has orthotics for her shoes. Patient is to call her manager data center and set up an appointment with him. She is in agreement and voices understanding. All questions answered. Patient will be discharged home. She is in no acute distress. Disposition Clinical Impression: Right foot pain Disposition: HOME SELF-CARE Condition: Good Instructions: Heel Spur (ED) Additional Instructions: May take ibuprofen 600 mg every 6 hours as needed for pain. Please follow-up with your manager data center soon as possible. Please follow up with primary care provider within 1-2 days. Return to emergency department if symptoms should worsen or any concerns arise. Referrals: Erin Correa DO [Primary Care Provider] - 1-2 days Time of Disposition: 20:05
--- NOTE | 2017-07-06 19:55 | XR ---
EXAMINATION TYPE: XR foot complete RT DATE OF EXAM: 07/06/2017 COMPARISON: 02/10/2017 HISTORY: Pain TECHNIQUE: 3 views FINDINGS: Metatarsals appear intact. There are no erosions. I see no fracture nor dislocation. There is a plantar calcaneal spur. IMPRESSION: Calcaneal spurring. No fracture. No change compared to old exam.
== END 2017-07-06 20:11 | disposition home or self-care (01) ==
LOC: EC 19:11
DX: M77.31 Calcaneal spur, right foot (principal); F31.9 Bipolar disorder, unspecified; F90.9 Attention-deficit hyperactivity disorder, unspecified type; F41.9 Anxiety disorder, unspecified; F17.200 Nicotine dependence, unspecified, uncomplicated; Z79.899 Other long term (current) drug therapy; Z88.0 Allergy status to penicillin; Z91.048 Other nonmedicinal substance allergy status
CPT/HCPCS: 99283

== ENCOUNTER 2017-08-21 17:04 | Emergency (ER) | payer OTHER ==
[2017-08-21 17:18] VITALS: RESP 18
--- NOTE | 2017-08-21 17:32 | ED ---
General Adult HPI - General Chief complaint: Neck Pain/Injury Stated complaint: Neck Pain, Headache Time Seen by Provider: 08/21/17 17:23 Source: patient, RN notes reviewed, old records reviewed Mode of arrival: ambulatory Limitations: no limitations - History of Present Illness Initial comments: This is a 32-year-old female the ER for evaluation. Patient has a for evaluation of neck pain. Patient states she has history of chronic neck pain, currently taking Imitrex at home for neck pain headache. Note that he can benefit. Patient denies fevers no cough congestion or runny nose. Patient doesn't also admits to having a lump on the back of her neck. No recent travel history no sick contacts, no complaints - Related Data Home Medications Medication Instructions Recorded Confirmed Cyclobenzaprine [Flexeril] 10 mg PO HS 04/18/17 07/06/17 ARIPiprazole [Abilify] 10 mg PO HS 05/27/17 07/06/17 Loratadine [Claritin] 10 mg PO HS 05/27/17 07/06/17 Pantoprazole Sodium [Protonix] 40 mg PO HS 05/27/17 07/06/17 Sertraline [Zoloft] 100 mg PO HS 05/27/17 07/06/17 Acetaminophen-Codeine 300-30mg 1 tab PO Q6H PRN 06/09/17 07/06/17 [Tylenol #3] Medroxyprogesterone Acetate 150 mg IM Q90D 06/09/17 07/06/17 [Depo-Provera] SUMAtriptan SUCCINATE [Imitrex] 50 mg PO DAILY PRN 06/09/17 07/06/17 HYDROcodone/APAP 7.5-325MG [[place] 1 tab PO Q4H PRN 07/06/17 07/06/17 7.5] Previous Rx's Medication Instructions Recorded Docusate [Colace] 100 mg PO BID #20 capsule 06/15/17 Allergies Allergy/AdvReac Type Severity Reaction Status Date / Time adhesive tape Allergy skin red Verified 08/21/17 17:18 amoxicillin [Amoxicillin] Allergy Rash/Hives Verified 08/21/17 17:18 Penicillins Allergy Confusion Verified 08/21/17 17:18 Review of Systems ROS Statement: Those systems with pertinent positive or pertinent negative responses have been documented in the HPI. ROS Other: All systems not noted in ROS Statement are negative. Past Medical History Past Medical History: Thyroid Disorder Additional Past Medical History / Comment(s): genital herpes low magnesium levels and hypoglycemia migraines History of Any Multi-Drug Resistant Organisms: None Reported Past Surgical History: No Surgical Hx Reported, Cholecystectomy Additional Past Surgical History / Comment(s): wisdom teeth Past Anesthesia/Blood Transfusion Reactions: No Reported Reaction Past Psychological History: ADD/ADHD, Anxiety, Bipolar Smoking Status: Light tobacco smoker Past Alcohol Use History: None Reported, Rare Past Drug Use History: None Reported - Past Family History Son(s) Family Medical History: Cancer Additional Family Medical History / Comment(s): hepatoblastoma Mother Family Medical History: Liver Disease Additional Family Medical History / Comment(s): Hepatitis C General Exam - General Exam Comments Initial Comments: Posterior cervical lymphadenopathy Limitations: no limitations General appearance: alert, in no apparent distress Head exam: Present: atraumatic, normocephalic, normal inspection Eye exam: Present: normal appearance, PERRL, EOMI. Absent: scleral icterus, conjunctival injection, periorbital swelling ENT exam: Present: normal exam, mucous membranes moist Neck exam: Present: normal inspection. Absent: tenderness, meningismus, lymphadenopathy Respiratory exam: Present: normal lung sounds bilaterally. Absent: respiratory distress, wheezes, rales, rhonchi, stridor Cardiovascular Exam: Present: regular rate, normal rhythm, normal heart sounds. Absent: systolic murmur, diastolic murmur, rubs, gallop, clicks GI/Abdominal exam: Present: soft, normal bowel sounds. Absent: distended, tenderness, guarding, rebound, rigid Extremities exam: Present: normal inspection, full ROM, normal capillary refill. Absent: tenderness, pedal edema, joint swelling, calf tenderness Back exam: Present: normal inspection Neurological exam: Present: alert, oriented X3, CN II-XII intact Psychiatric exam: Present: normal affect, normal mood Skin exam: Present: warm, dry, intact, normal color. Absent: rash Course Vital Signs 08/21/17 17:14 Temperature 97.7 F Pulse Rate 89 Respiratory 18 Rate Blood Pressure 139/82 O2 Sat by Pulse 100 Oximetry - Reevaluation(s) Reevaluation #1: 08/21/17 19:03 Patient is resolution of headache Medical Decision Making - Medical Decision Making 32 female the ER with headache neck pain, neck pain remains but headache is resolved, patient given antibiotic for lymphadenopathy and adenitis, patient to include and continue Motrin Tylenol for pain control - Radiology Data Radiology results: report reviewed (CT brain C-spine negative), image reviewed Disposition Clinical Impression: Strain of neck muscle, Disc disorder of cervical region, Lymphadenopathy Disposition: HOME SELF-CARE Condition: Good Instructions: Lymphadenopathy (ED), Neck Pain (ED) Referrals: Erin Correa DO [Primary Care Provider] - 1-2 days
[2017-08-21] MEDS ORDERED: HYDROcodone/APAP 5-325MG 1 EACH TAB PO STA ×2 (17:47→17:59)
[2017-08-21] MEDS ORDERED: KETOROLAC 60 MG/2 ML VIAL IM STA (17:47)
--- NOTE | 2017-08-21 18:48 | CT ---
EXAMINATION TYPE: CT brain peter wilkins con DATE OF EXAM: 08/21/2017 COMPARISON: NONE HISTORY: 32-year-old female Headache. CT DLP: 1438.7 mGycm Automated exposure control for dose reduction was used. Technique: Examination of the head was done in axial plane without intravenous contrast. Coronal and sagittal reconstructions performed. CT of the cervical spine was obtained in axial plane without intravenous injection of contrast mater ial. Coronal and sagittal reformatted images were obtained from the axial views for evaluation of f ractures, spinal alignment and canal. FINDINGS: Head: There is no evidence of acute intracranial hemorrhage, acute ischemic changes, mass, mass-effect, or extra-axial fluid collection. There is no effacement of cerebral sulci or basal subarachnoid cister ns. There is no hydrocephalus. There is no midline shift. Joyce-white matter distinction is preserv ed. Paranasal sinuses and mastoid air cells are well pneumatized. Orbits and globes are intact. Cervical spine: Incidental lingual tonsillar hypertrophy. Heterogeneity of the thyroid gland. The alignment of the ce rvical spine is normal on coronal and reformatted images. There is no cranial vertebral abnormality. Fracture of the cervical spine is not seen. Straightening of the normal cervical lordosis could be po sitional or due to muscle spasm.No significant neuroforaminal stenosis. There is no evidence of focal disk herniation down to the C5 level. Assessment from C5-C6 and below is limited due to artifact fro m the patient's shoulders. There is no central spinal canal stenosis. Sagittal and coronal reformatted images confirm above findings. COMBINED IMPRESSION: 1. No acute intracranial abnormality seen. 2. No acute fracture or malalignment of the cervical spine. 3. Heterogeneity of the thyroid gland. Correlate with TFTs, patient's symptoms, and thyroid ultrasoun d.
[2017-08-21] MEDS ORDERED: LEVOFLOXACIN 750 MG TAB PO STA (19:05)
[2017-08-21 19:14] VITALS: BP 118/84; PULSE 78; TEMP 98.2
== END 2017-08-21 19:16 | disposition home or self-care (01) ==
LOC: EC 17:04
DX: S16.1XXA Strain of muscle, fascia and tendon at neck level, initial encounter (principal); I88.9 Nonspecific lymphadenitis, unspecified; G43.909 Migraine, unspecified, not intractable, without status migrainosus; F31.9 Bipolar disorder, unspecified; F41.9 Anxiety disorder, unspecified; F17.200 Nicotine dependence, unspecified, uncomplicated; Z79.3 Long term (current) use of hormonal contraceptives; Z79.899 Other long term (current) drug therapy; Z88.0 Allergy status to penicillin; Z91.048 Other nonmedicinal substance allergy status; X58.XXXA Exposure to other specified factors, initial encounter
CPT/HCPCS: 99284; 72125; 70450; J1885

== ENCOUNTER 2017-10-11 16:03 | Emergency (ER) | payer BC, OTHER ==
[2017-10-11 16:08] VITALS: RESP 18; TEMP 97.7
[2017-10-11 16:30] VITALS: BP 127/84; PULSE 80
--- NOTE | 2017-10-11 16:51 | ED ---
General Adult HPI - General Chief complaint: Anxiety Stated complaint: Heart Racing Time Seen by Provider: 10/11/17 16:38 Source: patient, RN notes reviewed Mode of arrival: ambulatory Limitations: no limitations - History of Present Illness Initial comments: Patient is a 32-year-old female presented to the emergency room today with chief complaint of increased anxiety. She does admit that she found out today that she was fired from her job. She states that she does not feel like herself. She felt some heart palpitations and tightness. She states that she has had symptoms of anxiety in the past that have been similar. She states she took her blood pressure at the time and was 146/98. She states she has not taken anything for her blood pressure was unsure if this was related. Patient does admit that she is feeling better at this time. Her blood pressure at triage has improved currently 127/84. Patient denies any recent fever, chills, shortness of breath, back pain, abdominal pain, nausea or vomiting, numbness or tingling, dysuria or hematuria, constipation or diarrhea, headaches or visual changes, or any other complaints. - Related Data Home Medications Medication Instructions Recorded Confirmed Ibuprofen [Motrin Ib] 200 - 400 mg PO Q6H PRN 10/11/17 10/11/17 Allergies Allergy/AdvReac Type Severity Reaction Status Date / Time adhesive tape Allergy skin red Verified 10/11/17 16:24 amoxicillin [Amoxicillin] Allergy Rash/Hives Verified 10/11/17 16:24 Penicillins Allergy Confusion Verified 10/11/17 16:24 Review of Systems ROS Statement: Those systems with pertinent positive or pertinent negative responses have been documented in the HPI. ROS Other: All systems not noted in ROS Statement are negative. Past Medical History Past Medical History: Thyroid Disorder Additional Past Medical History / Comment(s): genital herpes low magnesium levels and hypoglycemia migraines History of Any Multi-Drug Resistant Organisms: None Reported Past Surgical History: No Surgical Hx Reported, Cholecystectomy Additional Past Surgical History / Comment(s): wisdom teeth Past Anesthesia/Blood Transfusion Reactions: No Reported Reaction Past Psychological History: ADD/ADHD, Anxiety, Bipolar, Depression Smoking Status: Light tobacco smoker Past Alcohol Use History: None Reported, Rare Past Drug Use History: None Reported - Past Family History Son(s) Family Medical History: Cancer Additional Family Medical History / Comment(s): hepatoblastoma Mother Family Medical History: Liver Disease Additional Family Medical History / Comment(s): Hepatitis C General Exam - General Exam Comments Initial Comments: General: The patient is awake and alert, in no distress, and does not appear acutely ill. Eye: Pupils are equal, round and reactive to light, extra-ocular movements are intact. No nystagmus. There is normal conjunctiva bilaterally. No signs of icterus. Ears, nose, mouth and throat: There are moist mucous membranes and no oral lesions. Neck: The neck is supple, there is no tenderness or JVD. Cardiovascular: There is a regular rate and rhythm. No murmur, rub or gallop is appreciated. Respiratory: Lungs are clear to auscultation, respirations are non-labored, breath sounds are equal. No wheezes, stridor, rales, or rhonchi. Musculoskeletal: Normal ROM, no tenderness. Strength 5/5. Sensation intact. Pulses equal bilaterally 2+. Neurological: A&O x 3. CN II-XII intact, There are no obvious motor or sensory deficits. Coordination appears grossly intact. Speech is normal. Skin: Skin is warm and dry and no rashes or lesions are noted. Psychiatric: Cooperative, appropriate mood & affect, normal judgment. Limitations: no limitations Course Vital Signs 10/11/17 10/11/17 16:05 16:28 Temperature 97.7 F Pulse Rate 104 H 80 Respiratory 18 18 Rate Blood Pressure 139/98 127/84 O2 Sat by Pulse 100 99 Oximetry EKG Findings - EKG Comments: EKG Findings:: EKG performed at 1655: Shows normal sinus rhythm at 79 beats per minute. IN interval 158. QRS 76. QT/QTC 350/401. No acute changes. Medical Decision Making - Medical Decision Making Patient reexamined at this time and states that she placed be discharged home. She states she is feeling better. Her EKG shows no changes. Patient states she 's had similar symptoms in the past with her anxiety. This times doing well. Advised follow-up family doctor advised return if any symptoms increase or worsen. Disposition Clinical Impression: Acute anxiety Disposition: HOME SELF-CARE Condition: Good Instructions: Generalized Anxiety Disorder (ED) Additional Instructions: Please follow-up with family doctor in the next 2 days. Please return to emergency room if the symptoms increase or worsen or for any other concerns. Is patient prescribed a controlled substance at d/c from ED?: No Referrals: Erin Correa DO [Primary Care Provider] - 1-2 days Time of Disposition: 17:22
== END 2017-10-11 17:50 | disposition home or self-care (01) ==
LOC: EC 16:03
DX: F41.9 Anxiety disorder, unspecified (principal); R00.2 Palpitations; F17.200 Nicotine dependence, unspecified, uncomplicated; Z88.0 Allergy status to penicillin; Z91.048 Other nonmedicinal substance allergy status
CPT/HCPCS: 93005; 99283

== ENCOUNTER → 2018-04-04 | Outpatient (CLI) | payer BC, OTHER ==
--- NOTE | 2018-04-04 13:15 | CT ---
EXAMINATION TYPE: CT abdomen pelvis w con DATE OF EXAM: 04/04/2018 COMPARISON: None HISTORY: Post OP tubal ligation 1 month. Pain at the incision CT DLP: 1362.2 mGycm CONTRAST: CT scan of the abdomen and pelvis is performed with Oral Contrast and with IV Contrast, patient injec mary with 100 mL of Isovue 300. FINDINGS: LUNG BASES-: No visible nodule. No infiltrate. LIVER/GB: There is evidence of fatty hepatic infiltration. Previous cholecystectomy are noted. No s pace occupying hepatic lesion. Biliary tree is of normal caliber. PANCREAS: No inflammation. No distinct mass. SPLEEN: No splenic enlargement. No lesion seen. ADRENALS: No nodule. No thickening. KIDNEYS/BLADDER: No hydronephrosis. No nephrolithiasis. No distinct renal mass. Urinary bladder g rossly unremarkable. BOWEL: Normal appendix. Normal bowel caliber. No inflammation. GENITAL ORGANS: No gross abnormality. LYMPH NODES: No greater than 1cm abdominal or pelvic lymph nodes are appreciated. AORTA: No significant abnormality. OSSEOUS STRUCTURES: No significant abnormality is seen. OTHER: No significant additional abnormality is seen. IMPRESSION: 1. No distinct abnormality at the site of clinical concern. 2. Hepatic steatosis.
== END | disposition home or self-care (01) ==
LOC: RADCTMAIN 11:02
PROVIDERS: ATTEND Family Medicine
DX: K76.0 Fatty (change of) liver, not elsewhere classified (principal); Z88.0 Allergy status to penicillin; Z88.1 Allergy status to other antibiotic agents
CPT/HCPCS: 74177; Q9967

== ENCOUNTER 2018-05-02 19:33 | Emergency (ER) | payer BC, OTHER ==
[2018-05-02 19:45] VITALS: TEMP 97.7
[2018-05-02] MEDS ORDERED: ONDANSETRON ODT 4 MG TAB PO STA (20:48)
[2018-05-02] MEDS ORDERED: KETOROLAC 30 MG/ML 1 ML VIAL IVP STA (20:49)
[2018-05-02] MEDS ORDERED: SODIUM CHLORIDE 0.9% 1,000 ML IV ONE (20:49)
[2018-05-02] MEDS ORDERED: diphenhydrAMINE 50 MG/ML 1 ML VIAL IVP STA (20:51)
--- NOTE | 2018-05-02 22:04 | ED ---
Headache HPI - General Chief Complaint: Headache Stated Complaint: Neck pain/headache Time Seen by Provider: 05/02/18 20:34 Mode of arrival: ambulatory Limitations: no limitations - History of Present Illness Initial Comments: This a 33-year-old female with past medical history of chronic migraines as well as cervical spine disc desiccation present today for chief complaint of neck pain and headache. Patient states that every time she gets one of her chronic migraines she first begins experiencing neck pain and then it begins to develop into a migraine. Patient normally is able to abort the headache with Imitrex. However lately the Imitrex has not seemed to help. Patient states that her headache began gradually today after developing neck pain first. She states she went to take her Imitrex however experience an episode of emesis. Patient states that she frequently experiences emesis with her migraine spinning in severity. Patient denies this being the worse headache of her life. Patient denies any fever, chills, night sweats. Patient does admit to photophobia termination. Patient denies any speech changes, neck stiffness, muscle weakness, sensation differences, paresthesias, difficulty swallowing. Upon arrival patient is well-appearing, nontoxic. There are no signs of acute distress. Noted elevation of blood pressure upon arrival, patient is afebrile. Remainder was negative, patient denies any recent shortness of breath, chest pain, back pain, abdominal pain,numbness or tingling, dysuria or hematuria, constipation or diarrhea, headaches or visual changes, or any other complaints. - Related Data Home Medications Medication Instructions Recorded Confirmed Ibuprofen [Motrin Ib] 200 - 400 mg PO Q6H PRN 10/11/17 10/11/17 Previous Rx's Medication Instructions Recorded Ondansetron Odt [Zofran Odt] 4 mg PO Q12HR PRN 3 Days #6 tab 05/02/18 Allergies Allergy/AdvReac Type Severity Reaction Status Date / Time adhesive tape Allergy skin red Verified 05/02/18 19:45 amoxicillin [Amoxicillin] Allergy Rash/Hives Verified 05/02/18 19:45 Penicillins Allergy Confusion Verified 05/02/18 19:45 Review of Systems ROS Statement: Those systems with pertinent positive or pertinent negative responses have been documented in the HPI. ROS Other: All systems not noted in ROS Statement are negative. Constitutional: Denies: fever, chills, night sweats Eyes: Denies: eye pain, vision change ENT: Denies: ear pain, throat pain Respiratory: Denies: cough, dyspnea, wheezes, hemoptysis, stridor Cardiovascular: Denies: chest pain, palpitations Endocrine: Denies: fatigue Gastrointestinal: Reports: nausea, vomiting. Denies: abdominal pain, diarrhea, constipation, hematemesis, melena, hematochezia Genitourinary: Denies: urgency, dysuria, frequency Musculoskeletal: Denies: as per HPI, back pain Skin: Denies: rash, lesions Neurological: Reports: headache. Denies: weakness, numbness, paresthesias, confusion, abnormal gait, vertigo Past Medical History Past Medical History: Thyroid Disorder Additional Past Medical History / Comment(s): genital herpes low magnesium levels and hypoglycemia migraines History of Any Multi-Drug Resistant Organisms: None Reported Past Surgical History: No Surgical Hx Reported, Cholecystectomy, Tubal Ligation Additional Past Surgical History / Comment(s): wisdom teeth Past Anesthesia/Blood Transfusion Reactions: No Reported Reaction Past Psychological History: ADD/ADHD, Anxiety, Bipolar, Depression Smoking Status: Light tobacco smoker Past Alcohol Use History: None Reported, Rare Past Drug Use History: None Reported - Past Family History Son(s) Family Medical History: Cancer Additional Family Medical History / Comment(s): hepatoblastoma Mother Family Medical History: Liver Disease Additional Family Medical History / Comment(s): Hepatitis C General Exam - General Exam Comments Initial Comments: General: The patient is awake and alert, in no distress, and does not appear acutely ill. Eye: Pupils are equal, round and reactive to light, extra-ocular movements are intact. No nystagmus. There is normal conjunctiva bilaterally. No signs of icterus. Ears, nose, mouth and throat: There are moist mucous membranes and no oral lesions. Oropharynx nonerythematous, no tonsillar enlargement face lesions. Uvula midline. Neck: The neck is supple, there is no tenderness or JVD. Negative Brudzinski' s or Kernig. No midline tenderness to palpation of the cervical spine. Cardiovascular: There is a regular rate and rhythm. No murmur, rub or gallop is appreciated. Respiratory: Lungs are clear to auscultation, respirations are non-labored, breath sounds are equal. No wheezes, stridor, rales, or rhonchi. Musculoskeletal: Normal ROM, no tenderness. Strength 5/5. Sensation intact. Pulses equal bilaterally 2+. Neurological: A&O x 3. CN II-XII intact, memory intact to immediately, intermediate and chcf recall. Able to follow simple verbal. Able to name a common object (pen). High quality, labial (pa) and lingual (la) speech. Low quality posterior pharynx/larynx (ga) voice sounds. Able to express general knowledge (days in a week). No hemineglect or inattention noted. Finger agnosia (-) and spatially oriented (identified L index finger touched R shoulder with L index finger). . Light touch and temperature sensation present over the face, chest, abdomen, back, UE bilaterally, and LE bilaterally. Able to localize point during point localization b/l and extinction. No visible bulk atrophy, hypertrophy, fasciculations, or myoclonus of the UE or LE b/l. Full PROM in UE and LE b/l. Bilateral muscle strength 5/5 for the following muscles: deltoid, biceps, triceps, brachioradialis, wrist extensors/flexor, hip flexor, hip abductors/adductors, hamstrings, quadriceps, feet dorsiflexors/plantar flexors. Finger to nose, finger to the examiners finger, and heel to cho coordinated and accurate b/l. Coordinated and even demonstration of hand flip, finger to thumb, and toe tap b/l.. +2 brachioradialis, triceps, patellar, and Achilles DTR b/l. Gait is coordinated and even in stride with tandem, toe and heel walk. Maintains balance with monopedal stance. (-) Romberg. (-) pronator drift. No nuchal rigidity. (-) Brudzinskis and Kernig signs. Skin: Skin is warm and dry and no rashes or lesions are noted. Psychiatric: Cooperative, appropriate mood & affect, normal judgment. Limitations: no limitations Course Vital Signs 05/02/18 05/02/18 19:42 22:24 Temperature 97.7 F Pulse Rate 93 72 Respiratory 20 16 Rate Blood Pressure 136/91 126/87 O2 Sat by Pulse 100 100 Oximetry - Reevaluation(s) Reevaluation #1: 05/02/18 22:03 pt requesting discharge, states complete resolution of symptoms Medical Decision Making - Medical Decision Making Patient afebrile. Patient denies any changes in characteristic of chronic migraines. She denies any sudden onset, patient denies this being the worst headache of her life or neck stiffness. Patient given Zofran, Toradol and Benadryl. Upon reevaluation patient states that admits to complete resolution of symptoms. Given patient has history of chronic migraines, denies any changes in characteristic today. There are no signs of meningeal irritation. I feel patient is stable for discharge with primary care follow-up in the next 1 -2 days. Patient is instructed to continue to take Imitrex as directed as well as ibuprofen for pain management. Patient was given a short course of Zofran to take as needed for any nausea. Patient is agreeable discharge, denies crutches at this time. Return parameters discussed at length the patient who verbalizes understanding. I discussed case with Dr. Ennis who agrees the impression and plan. Patient discharged. Well, nontoxic and denies any current symptomology. Blood pressure within normal limits upon discharge. Disposition Clinical Impression: Headache Disposition: HOME SELF-CARE Condition: Good Instructions: Acute Headache (ED) Additional Instructions: Please use medication as discussed. Please follow-up with family doctor in the next 2 days. Please return to emergency room if the symptoms increase or worsen or for any other concerns. Prescriptions: Ondansetron Odt [Zofran Odt] 4 mg PO Q12HR PRN 3 Days #6 tab PRN Reason: Nausea Is patient prescribed a controlled substance at d/c from ED?: No Referrals: Erin Correa DO [Primary Care Provider] - 1-2 days Time of Disposition: 22:04
[2018-05-02 22:25] VITALS: BP 126/87; PULSE 72; RESP 16
== END 2018-05-02 22:20 | disposition home or self-care (01) ==
LOC: EC 19:33
DX: R51 Headache (principal); M54.2 Cervicalgia; R11.2 Nausea with vomiting, unspecified; H53.149 Visual discomfort, unspecified; F17.200 Nicotine dependence, unspecified, uncomplicated; Z87.39 Personal history of other diseases of the musculoskeletal system and connective tissue; Z86.69 Personal history of other diseases of the nervous system and sense organs; Z91.048 Other nonmedicinal substance allergy status; Z88.0 Allergy status to penicillin
CPT/HCPCS: 99283; 96374; 96375; 96361; J1200; J1885

== ENCOUNTER 2018-11-27 20:58 | Emergency (ER) | payer BC, OTHER ==
--- NOTE | 2018-11-27 21:23 | ED ---
Skin/Abscess/FB HPI - General Chief complaint: Skin/Abscess/Foreign Body Stated complaint: Hives, Back & Leg Pain Time Seen by Provider: 11/27/18 21:21 Source: patient Mode of arrival: ambulatory Limitations: no limitations - History of Present Illness Initial comments: Francine is a 33-year-old female who presents to the emergency department today for reevaluation of skin rash. Patient reports that last week she was seen by her primary care physician for hives on her upper or lower extremities and her back. Patient reports that these began without provocation. She denies any new contacts including soaps, lotions, laundry detergent She ports that she was prescribed prednisone 10 mg which she has been taking daily. Despite this she continues to have the rash. She has not been referred to dermatology she is scheduled to follow-up with her primary care physician again tomorrow. Patient reports that the rash is profoundly itchy, she does admit that she's been scratching it and there are multiple areas that are now bleeding. - Related Data Home Medications Medication Instructions Recorded Confirmed Cariprazine HCl [Vraylar] 4.5 mg PO DAILY 11/27/18 11/27/18 Levothyroxine Sodium [Synthroid] 125 mcg PO DAILY 11/27/18 11/27/18 Loratadine [Claritin] 10 mg PO DAILY 11/27/18 11/27/18 hydrOXYzine HCL [Atarax] 50 mg PO Q8H PRN 11/27/18 11/27/18 lamoTRIgine [LaMICtal] 100 mg PO DAILY 11/27/18 11/27/18 predniSONE See Taper PO DAILY 11/27/18 11/27/18 Previous Rx's Medication Instructions Recorded hydrOXYzine HCL [Atarax] 25 mg PO TID PRN #30 tab 11/27/18 predniSONE [Deltasone] 40 mg PO DAILY #10 tablet 11/27/18 Allergies Allergy/AdvReac Type Severity Reaction Status Date / Time adhesive tape Allergy skin red Verified 11/27/18 21:25 amoxicillin [Amoxicillin] Allergy Rash/Hives Verified 11/27/18 21:25 Penicillins Allergy Confusion Verified 11/27/18 21:25 Review of Systems ROS Statement: Those systems with pertinent positive or pertinent negative responses have been documented in the HPI. ROS Other: All systems not noted in ROS Statement are negative. Past Medical History Past Medical History: Thyroid Disorder Additional Past Medical History / Comment(s): genital herpes low magnesium levels and hypoglycemia migraines History of Any Multi-Drug Resistant Organisms: None Reported Past Surgical History: No Surgical Hx Reported, Cholecystectomy, Tubal Ligation Additional Past Surgical History / Comment(s): wisdom teeth Past Anesthesia/Blood Transfusion Reactions: No Reported Reaction Past Psychological History: ADD/ADHD, Anxiety, Bipolar, Depression Smoking Status: Light tobacco smoker Past Alcohol Use History: None Reported, Rare Past Drug Use History: None Reported - Past Family History Son(s) Family Medical History: Cancer Additional Family Medical History / Comment(s): hepatoblastoma Mother Family Medical History: Liver Disease Additional Family Medical History / Comment(s): Hepatitis C General Exam - General Exam Comments Initial Comments: Physical Exam GENERAL: Patient is well-developed and well-nourished. Patient is nontoxic and well-hydrated and is in no distress. HENT: Normocephalic, Atraumatic. EYES: PERRL, EOMI PULMONARY: Unlabored respirations. No audible rales rhonchi or wheezing was noted. CARDIOVASCULAR: There is a regular rate and rhythm without any murmurs gallops or rubs. ABDOMEN: Non-distended SKIN: Dry skaly rash on bilateral upper and lower extremities Areas of excoriation most prominent on the lower extremities with dried blood noted Hives on the upper extremities and back : Deferred NEUROLOGIC: Patient is alert and oriented x3. Moving all extremities spontaneously MUSCULOSKELETAL: Normal extremities with adequate strength and full range of motion. No lower extremity swelling or edema. No calf tenderness. PSYCHIATRIC: Normal psychiatric evaluation. Limitations: no limitations Limitations: no limitations Course Vital Signs 11/27/18 20:59 Temperature 98.2 F Pulse Rate 76 Respiratory 18 Rate Blood Pressure 145/81 O2 Sat by Pulse 99 Oximetry Medical Decision Making - Medical Decision Making The patient was seen and evaluated, history is obtained from the patient Patient appears to have a dermatitis, does not appear to be infectious, does not appear to be viral exanthem, appears to be ALLERGIC or inflammatory in nature. Patient is on a very low dose of prednisone currently. I will increase his from 10-40 for 5 days, advised the patient to keep the area clean dry, apply ice packs to the areas when they're cold. I'll avoid scratching. I will prescribe Atarax for pruritus. I will refer patient to dermatology for further follow- up. Patient is to see her primary care physician again in the next 2 days for reevaluation. Patient jaswinder has scheduled appointment. Disposition Clinical Impression: Dermatitis Disposition: HOME SELF-CARE Condition: Stable Instructions (If sedation given, give patient instructions): Contact Dermatitis (DC), Dermatitis (ED) Prescriptions: hydrOXYzine HCL [Atarax] 25 mg PO TID PRN #30 tab PRN Reason: Itching predniSONE [Deltasone] 40 mg PO DAILY #10 tablet Is patient prescribed a controlled substance at d/c from ED?: No Referrals: Erin Correa DO [Primary Care Provider] - 1-2 days Meron Rios MD [STAFF PHYSICIAN] - 1-2 days Johnathan Rios MD [STAFF PHYSICIAN] - 1-2 days Mauri Spencer MD [REFERRING] - 1-2 days Divya Brown MD [REFERRING] - 1-2 days Grant Mitchell MD [STAFF PHYSICIAN] - 1-2 days
[2018-11-27 22:27] VITALS: BP 128/83; PULSE 59; RESP 20; TEMP 98.1
== END 2018-11-27 22:28 | disposition home or self-care (01) ==
LOC: EC 20:58
DX: L30.9 Dermatitis, unspecified (principal); E07.9 Disorder of thyroid, unspecified; F31.9 Bipolar disorder, unspecified; F17.200 Nicotine dependence, unspecified, uncomplicated; Z79.890 Hormone replacement therapy; Z79.52 Long term (current) use of systemic steroids; Z79.899 Other long term (current) drug therapy; Z91.048 Other nonmedicinal substance allergy status; Z88.0 Allergy status to penicillin
CPT/HCPCS: 99283

== ENCOUNTER 2021-04-11 07:11 | Emergency (ER) | payer BC ==
[2021-04-11 07:28] VITALS: BP 119/88; PULSE 60; RESP 22; TEMP 98
--- NOTE | 2021-04-11 08:28 | XR ---
KUB. COMPARISON: 06/13/2017. HISTORY: Nausea and vomiting. TECHNIQUE: 2 upright views of the abdomen were obtained. FINDINGS: The lung bases are clear. There is no free intraperitoneal air. The bowel loops are normal in caliber and there is no obstruction. Bowel gas pattern is unremarkable. The osseous structures are intact. No suspicious abdominal or pelvic calcifications. IMPRESSION: Nonspecific abdomen.
== END 2021-04-11 09:05 | disposition left against medical advice (07) ==
LOC: EC 07:11
DX: Z53.21 Procedure and treatment not carried out due to patient leaving prior to being seen by health care provider (principal)
CPT/HCPCS: 74018; 99499

== ENCOUNTER 2021-10-10 01:17 | Emergency (ER) | payer BC, OTHER ==
[2021-10-10 01:34] VITALS: BP 133/91; PULSE 66; RESP 18; TEMP 97.9
[2021-10-10] MEDS ORDERED: TOPICAL SKIN ADHESIVE 1 EACH AMP TOPICAL ONE (01:57)
--- NOTE | 2021-10-10 02:06 | ED ---
General Adult HPI - General Chief complaint: Wound/Laceration Stated complaint: Right finger laceration Time Seen by Provider: 10/10/21 01:50 Source: patient, RN notes reviewed, old records reviewed Mode of arrival: ambulatory Limitations: no limitations - History of Present Illness Initial comments: Well-appearing 36-year-old female presents to the emergency room with a laceration to her right ring finger on a glass about 2 hours ago. She states that she also tripped and landed on her left hand which is now hurting her. States tetanus shot is up-to-date. She has full range of motion of both hands, denies any other injuries. -: hour(s) (2) Location: right, upper extremity (ring finger) Severity scale (1-10): 8 Associated Symptoms: other (left hand pain after falling) Treatments Prior to Arrival: other (bandaid) - Related Data Home Medications Medication Instructions Recorded Confirmed Cariprazine HCl [Vraylar] 4.5 mg PO DAILY 11/27/18 11/27/18 Levothyroxine Sodium [Synthroid] 125 mcg PO DAILY 11/27/18 11/27/18 Loratadine [Claritin] 10 mg PO DAILY 11/27/18 11/27/18 hydrOXYzine HCL [Atarax] 50 mg PO Q8H PRN 11/27/18 11/27/18 lamoTRIgine [LaMICtal] 100 mg PO DAILY 11/27/18 11/27/18 predniSONE See Taper PO DAILY 11/27/18 11/27/18 Previous Rx's Medication Instructions Recorded hydrOXYzine HCL [Atarax] 25 mg PO TID PRN #30 tab 11/27/18 predniSONE [Deltasone] 40 mg PO DAILY #10 tablet 11/27/18 Allergies Allergy/AdvReac Type Severity Reaction Status Date / Time adhesive tape Allergy skin red Verified 04/11/21 07:28 amoxicillin [Amoxicillin] Allergy Rash/Hives Verified 04/11/21 07:28 lamotrigine [From Lamictal] Allergy Rash/Hives Verified 04/11/21 07:28 Penicillins Allergy Confusion Verified 04/11/21 07:28 Review of Systems ROS Statement: Those systems with pertinent positive or pertinent negative responses have been documented in the HPI. ROS Other: All systems not noted in ROS Statement are negative. Past Medical History Past Medical History: Thyroid Disorder Additional Past Medical History / Comment(s): genital herpes low magnesium levels and hypoglycemia migraines History of Any Multi-Drug Resistant Organisms: None Reported Past Surgical History: No Surgical Hx Reported, Cholecystectomy, Tubal Ligation Additional Past Surgical History / Comment(s): wisdom teeth Past Anesthesia/Blood Transfusion Reactions: No Reported Reaction Past Psychological History: ADD/ADHD, Anxiety, Bipolar, Depression Smoking Status: Current every day smoker Past Alcohol Use History: Rare Past Drug Use History: Marijuana - Past Family History Son(s) Family Medical History: Cancer Additional Family Medical History / Comment(s): hepatoblastoma Mother Family Medical History: Liver Disease Additional Family Medical History / Comment(s): Hepatitis C General Exam Limitations: no limitations General appearance: alert, in no apparent distress Head exam: Present: atraumatic, normocephalic, normal inspection Eye exam: Present: normal appearance Respiratory exam: Absent: respiratory distress, accessory muscle use Cardiovascular Exam: Present: regular rate Extremities exam: Present: normal capillary refill Left Forearm Wrist exam: Present: full ROM. Absent: tenderness, swelling Hand Wrist exam: Present: tenderness (Lateral aspect of the hand fifth metacarpal). Absent: swelling, erythema Neuro motor exam: Present: wrist extension intact, thumb opposition intact, thumb IP flexion intact, thumb adduction intact, fingers 2-5 abduction intact Vascular: Present: normal capillary refill, radial pulse. Absent: vascular compromise Right Hand Wrist exam: Present: laceration (Right middle finger 4mm laceration dorsal aspect PIP joint) Neuro motor exam: Present: thumb opposition intact, thumb IP flexion intact, thumb adduction intact Vascular: Present: normal capillary refill. Absent: vascular compromise Neurological exam: Present: alert, oriented X3, normal gait Psychiatric exam: Present: normal affect, normal mood Skin exam: Present: warm, dry, normal color. Absent: cyanosis, diaphoretic, petechiae, pallor Course Vital Signs 10/10/21 01:32 Temperature 97.9 F Pulse Rate 66 Respiratory 18 Rate Blood Pressure 133/91 O2 Sat by Pulse 98 Oximetry Medical Decision Making - Medical Decision Making Superficial laceration to the right index finger was closed with dermal glue. She was placed in a foam aluminum splint and directed to wear the splint for the next 7 days. X-ray of left hand shows no evidence of fracture dislocation. She has full range of motion of both hands and fingers She was directed to take Tylenol and or Motrin as needed for pain. Her tetanus shot is up-to-date. Disposition Clinical Impression: Laceration, Hand pain, left Disposition: HOME SELF-CARE Condition: Good Instructions (If sedation given, give patient instructions): Laceration (ED), Skin Adhesive Care (ED) Additional Instructions: Keep wound clean and dry and wear the splint as applied for the next 7 days to prevent flexion of the finger and disrupting the adhesive. Do not put any ointment on the glue, it will flake off on its own. Return to the emergency room with any new or concerning symptoms including signs of infection like fever, increased pain and redness or any drainage. Follow-up with your primary care doctor in 1 week Is patient prescribed a controlled substance at d/c from ED?: No Referrals: Erin Correa DO [Primary Care Provider] - 1-2 days Time of Disposition: 02:46
--- NOTE | 2021-10-10 02:38 | XR ---
EXAMINATION TYPE: XR hand complete LT DATE OF EXAM: 10/10/2021 COMPARISON: NONE HISTORY: Pain TECHNIQUE: 3 views FINDINGS: There is no sign of fracture nor dislocation. Joint spaces appear normal. No pathologic harry cification. IMPRESSION: Negative exam. No sign of inflammatory arthritis.
[2021-10-10] MEDS ORDERED: IBUPROFEN 600 MG TAB PO STA (02:46)
== END 2021-10-10 02:59 | disposition home or self-care (01) ==
LOC: EC 01:17
DX: S61.214A Laceration without foreign body of right ring finger without damage to nail, initial encounter (principal); F17.200 Nicotine dependence, unspecified, uncomplicated; Z88.0 Allergy status to penicillin; Z88.8 Allergy status to other drugs, medicaments and biological substances; Z91.09 Other allergy status, other than to drugs and biological substances; W01.0XXA Fall on same level from slipping, tripping and stumbling without subsequent striking against object, initial encounter
CPT/HCPCS: 12001; 99283

== ENCOUNTER 2021-10-17 09:26 | Emergency (ER) | payer BC, OTHER ==
[2021-10-17] MEDS ORDERED: DEXAMETHASONE SOD PHOSPHATE 10 MG/ML 1 ML VIAL IV STA (09:41)
[2021-10-17] MEDS ORDERED: METOCLOPRAMIDE 5 MG/ML 2 ML VIAL IVP STA (09:41)
[2021-10-17] MEDS ORDERED: SODIUM CHLORIDE 0.9% 1,000 ML IV STA (09:41)
[2021-10-17] MEDS ORDERED: diphenhydrAMINE 50 MG/ML 1 ML VIAL IVP STA (09:41)
[2021-10-17] MEDS ORDERED: KETOROLAC 15 MG/ML 1 ML VIAL IVP STA (09:41)
--- NOTE | 2021-10-17 10:24 | ED ---
Headache HPI - General Chief Complaint: Headache Stated Complaint: Vomiting Time Seen by Provider: 10/17/21 09:40 Source: patient, RN notes reviewed Mode of arrival: wheelchair Limitations: no limitations - History of Present Illness Initial Comments: This is a 36-year-old female with a past medical history of migraines who presents to the emergency department for a migraine that began 1 day ago. She reports associated light sensitivity, motion sickness, and vomiting associated with the headache. She tried taking her Imitrex, which did not work. O therwise, this feels like her typical migraines. Denies any fevers, chills, sore throat, cough, dyspnea, chest pain, palpitations, abdominal pain, diarrhea, or back pain. MD Complaint: "migraine" Onset/Timin -: days(s) - Related Data Home Medications Medication Instructions Recorded Confirmed Cariprazine HCl [Vraylar] 4.5 mg PO DAILY 11/27/18 11/27/18 Levothyroxine Sodium [Synthroid] 125 mcg PO DAILY 11/27/18 11/27/18 Loratadine [Claritin] 10 mg PO DAILY 11/27/18 11/27/18 hydrOXYzine HCL [Atarax] 50 mg PO Q8H PRN 11/27/18 11/27/18 lamoTRIgine [LaMICtal] 100 mg PO DAILY 11/27/18 11/27/18 predniSONE See Taper PO DAILY 11/27/18 11/27/18 Previous Rx's Medication Instructions Recorded hydrOXYzine HCL [Atarax] 25 mg PO TID PRN #30 tab 11/27/18 predniSONE [Deltasone] 40 mg PO DAILY #10 tablet 11/27/18 Metoclopramide [Reglan] 5 mg PO Q6H PRN #15 tab 10/17/21 Ondansetron Odt [Zofran Odt] 4 mg PO Q8HR PRN #15 tab 10/17/21 Allergies Allergy/AdvReac Type Severity Reaction Status Date / Time adhesive tape Allergy skin red Verified 10/17/21 09:38 amoxicillin [Amoxicillin] Allergy Rash/Hives Verified 10/17/21 09:38 lamotrigine [From Lamictal] Allergy Rash/Hives Verified 10/17/21 09:38 Penicillins Allergy Confusion Verified 10/17/21 09:38 Review of Systems ROS Statement: Those systems with pertinent positive or pertinent negative responses have been documented in the HPI. ROS Other: All systems not noted in ROS Statement are negative. Past Medical History Past Medical History: Thyroid Disorder Additional Past Medical History / Comment(s): genital herpes low magnesium levels and hypoglycemia migraines History of Any Multi-Drug Resistant Organisms: None Reported Past Surgical History: No Surgical Hx Reported, Cholecystectomy, Tubal Ligation Additional Past Surgical History / Comment(s): wisdom teeth Past Anesthesia/Blood Transfusion Reactions: No Reported Reaction Past Psychological History: ADD/ADHD, Anxiety, Bipolar, Depression Smoking Status: Current every day smoker Past Alcohol Use History: Rare Past Drug Use History: Marijuana - Past Family History Son(s) Family Medical History: Cancer Additional Family Medical History / Comment(s): hepatoblastoma Mother Family Medical History: Liver Disease Additional Family Medical History / Comment(s): Hepatitis C General Exam Limitations: no limitations General appearance: alert, in distress Head exam: Present: atraumatic, normocephalic, normal inspection Respiratory exam: Present: normal lung sounds bilaterally. Absent: respiratory distress, wheezes, rales, rhonchi, stridor Cardiovascular Exam: Present: regular rate, normal rhythm, normal heart sounds. Absent: systolic murmur, diastolic murmur, rubs, gallop, clicks Neurological exam: Present: alert, oriented X3, CN II-XII intact Psychiatric exam: Present: normal affect, normal mood Skin exam: Present: warm, dry, intact, normal color. Absent: rash Course Vital Signs 10/17/21 10/17/21 09:33 11:28 Temperature 96.9 F L 97.6 F Pulse Rate 98 89 Respiratory 20 18 Rate Blood Pressure 163/98 108/76 O2 Sat by Pulse 97 97 Oximetry Medical Decision Making - Medical Decision Making This is a 36-year-old female who presents to the emergency department for a migraine. Patient was administered a migraine cocktail consisting of Reglan, Toradol, Benadryl, and Decadron. Patient also given a liter of IV fluids. She states that she felt significantly improved after the medication and feels safe for discharge home. Lab work and imaging not obtained, as this was a normal migraine for the patient, she is neurologically intact, and she improved with medication. Prescription for Zofran and Reglan sent to the pharmacy for nausea and vomiting. Return precautions reviewed in depth, the patient is instructed to return to the emergency department with any new, worsening, or concerning symptoms. Patient verbalized understanding. This case was discussed in detail with the attending ED physician. Presentation, findings, and treatment plan discussed in detail as well. Disposition Clinical Impression: Migraine headache Disposition: HOME SELF-CARE Instructions (If sedation given, give patient instructions): Migraine Headache (ED), Acute Headache (ED) Additional Instructions: Return to the emergency department with any new, worsening, or concerning symptoms. Take the Zofran or Reglan as needed for nausea and vomiting. Follow up with your primary care provider in 1-2 days. Prescriptions: Metoclopramide [Reglan] 5 mg PO Q6H PRN #15 tab PRN Reason: Nausea And Vomiting Ondansetron Odt [Zofran Odt] 4 mg PO Q8HR PRN #15 tab PRN Reason: Nausea And Vomiting Is patient prescribed a controlled substance at d/c from ED?: No Referrals: Erin Correa DO [Primary Care Provider] - 1-2 days
[2021-10-17 11:33] VITALS: BP 108/76; PULSE 89; RESP 18; TEMP 97.6
== END 2021-10-17 11:37 | disposition home or self-care (01) ==
LOC: EC 09:26
DX: G43.909 Migraine, unspecified, not intractable, without status migrainosus (principal); E07.9 Disorder of thyroid, unspecified; Z79.1 Long term (current) use of non-steroidal anti-inflammatories (NSAID); F17.200 Nicotine dependence, unspecified, uncomplicated; Z88.0 Allergy status to penicillin; Z88.8 Allergy status to other drugs, medicaments and biological substances; Z91.048 Other nonmedicinal substance allergy status
CPT/HCPCS: 99283; 96374; 96375; 96361; J1200; J1100; J2765; J1885

== ENCOUNTER 2022-05-26 19:25 | Observation (INO) | payer SELFPAY ==
[2022-05-26] MEDS ORDERED: KETOROLAC 15 MG/ML 1 ML VIAL IVP STA (19:37)
[2022-05-26] MEDS ORDERED: SODIUM CHLORIDE 0.9% 1,000 ML IV STA (19:37)
[2022-05-26 20:11] LABS: Basophils % (A) 0 %; Eosinophils # (A) 0.1 k/uL (0-0.7); Eosinophils % (A) 1 %; HCT 35.3 % (34.0-46.0); HGB 12.4 gm/dL (11.4-16.0); Lymphocytes # (A) 2.4 k/uL (1.0-4.8); Lymphocytes % (A) 26 %; MCH 31.9 pg (25.0-35.0); MCHC 35.3 g/dL (31.0-37.0); MCV 90.4 fL (80.0-100.0); Mean Platelet Volume 7.6; Monocytes # (A) 0.5 k/uL (0-1.0); Monocytes % (A) 5 %; Neutrophils # (A) 6.1 k/uL (1.3-7.7); Neutrophils % (A) 66 %; Platelet Count 261 k/uL (150-450); RDW 12.3 % (11.5-15.5); WBC 9.3 k/uL (3.8-10.6)
[2022-05-26 20:21] LABS: ALT 17 U/L (4-34); AST 23 U/L (14-36); African American GFR (CKD) >90 (>60 ml/min/1.73 sqM); Albumin 3.9 g/dL (3.5-5.0); Alkaline Phosphatase 63 U/L (38-126); Anion Gap 3 mmol/L; Blood Urea Nitrogen 8 mg/dL (7-17); Calcium 8.7 mg/dL (8.4-10.2); Carbon Dioxide 26 mmol/L (22-30); Chloride 107 mmol/L (98-107); Glucose 94 mg/dL (74-99); Non-African American GFR(CKD) >90 (>60 ml/min/1.73 sqM); Potassium 3.9 mmol/L (3.5-5.1); Sodium 136 mmol/L (137-145); Total Bilirubin 0.2 mg/dL (0.2-1.3); Total Protein 6.4 g/dL (6.3-8.2)
--- NOTE | 2022-05-26 20:35 | CT ---
EXAMINATION TYPE: CT abdomen pelvis w con CT DLP: 817.6 mGycm, Automated exposure control for dose reduction was used. DATE OF EXAM: 05/26/2022 8:27 PM COMPARISON: CT abdomen pelvis most recent from 04/04/2018 . CLINICAL INDICATION:Female, 37 years old with history of abdominal pain, acute, lower quadrants; LOW ABD PAIN TECHNIQUE: Standard CT of the abdomen and pelvis following the administration of 100 cc of Isovue 3 00 IV contrast material. Coronal and sagittal reformats were performed. FINDINGS: LOWER CHEST: Unremarkable ABDOMEN LIVER: Diffusely hypoattenuating parenchyma. GALLBLADDER AND BILE DUCTS: The gallbladder is surgically absent. PANCREAS: Unremarkable. SPLEEN: Unremarkable. ADRENAL GLANDS: Unremarkable. KIDNEYS AND URETERS: No evidence of hydronephrosis or renal calculus. The ureters are unremarkable. PELVIS BLADDER: Incompletely distended but grossly unremarkable. REPRODUCTIVE: Unremarkable. ABDOMEN & PELVIS STOMACH AND BOWEL: Stomach and duodenum are unremarkable. The appendix is mildly prominent measuring 7 mm in thickness with subtle surrounding fat stranding. No evidence of bowel obstruction. PERITONEUM: No evidence of pneumoperitoneum or free fluid. VASCULATURE: No evidence of aortic aneurysm. MUSCULOSKELETAL: No acute osseous abnormalities LYMPH NODES: No gross evidence for lymphadenopathy. SOFT TISSUE/ABDOMINAL WALL: Unremarkable IMPRESSION: 1. Appendix is mildly prominent measuring up to 7 mm with subtle surrounding fat stranding concernin g for early acute uncomplicated appendicitis. 2. Hepatic steatosis.
[2022-05-26 20:40] LABS: Appearance,Urine Cloudy (Clear); Bilirubin,Urine Negative (Negative); Blood,Urine Negative (Negative); Color,Urine Light Yellow; Glucose,Urine (UA) Negative (Negative); Ketones,Urine Negative (Negative); Leukocyte Esterase,Urine Moderate (Negative); Mucus,Urine Rare /hpf; Nitrite,Urine Negative (Negative); Protein,Urine Negative (Negative); RBC,Urine 2 /hpf (0-5); Specific Gravity,Urine 1.015 (1.001-1.035); Squamous Epithelial Cell,Urine 29 /hpf (0-4); Urobilinogen,Urine <2.0 mg/dL (<2.0); WBC,Urine 33 /hpf (0-5)
[2022-05-26] MEDS ORDERED: metroNIDAZOLE-NS PMX 500 MG in SALINE 1 100ML.BAG IVPB STA (21:28)
[2022-05-26] MEDS ORDERED: cefTRIAXone IN SWFI 1,000 MG/10 ML SYRINGE IVP STA (21:28)
[2022-05-26] MEDS ORDERED: MORPHINE SULFATE 4 MG/ML SYRINGE IV PRN (21:35)
[2022-05-26] MEDS ORDERED: KETOROLAC 15 MG/ML 1 ML VIAL IVP PRN (21:35)
[2022-05-26] MEDS ORDERED: NALOXONE 0.4 MG/ML 1 ML VIAL IV PRN (21:35)
[2022-05-26] MEDS ORDERED: MORPHINE SULFATE 4 MG/ML SYRINGE IVP STA (21:36)
[2022-05-26] MEDS ORDERED: ONDANSETRON 4 MG/2 ML VIAL IVP PRN (21:36)
--- NOTE | 2022-05-26 21:37 | ED ---
Abdominal Pain HPI - General Chief Complaint: Abdominal Pain Stated Complaint: abd pain Time Seen by Provider: 05/26/22 19:31 Source: patient Mode of arrival: ambulatory Limitations: no limitations - History of Present Illness Initial Comments: Patient is a 37-year-old female presenting with chief complaint of abdominal pain. She states that the pain is in the lower abdominal region. Pain started earlier today when she was coughing. Patient had persistent pain that did not relieve with rest and presented for evaluation. No nausea, vomiting, or diarrhea. No fever or chills. No chest pain or difficulty breathing. No dysuria, hematuria, flank pain. - Related Data Home Medications Medication Instructions Recorded Confirmed No Known Home Medications 05/26/22 05/26/22 Allergies Allergy/AdvReac Type Severity Reaction Status Date / Time adhesive tape Allergy skin red Verified 05/26/22 21:54 amoxicillin [Amoxicillin] Allergy Rash/Hives Verified 05/26/22 21:54 lamotrigine [From Lamictal] Allergy Rash/Hives Verified 05/26/22 21:54 Penicillins Allergy Anaphylaxis, Verified 05/26/22 21:54 Rash Review of Systems ROS Statement: Those systems with pertinent positive or pertinent negative responses have been documented in the HPI. ROS Other: All systems not noted in ROS Statement are negative. Past Medical History Past Medical History: Thyroid Disorder Additional Past Medical History / Comment(s): genital herpes low magnesium levels and hypoglycemia migraines History of Any Multi-Drug Resistant Organisms: None Reported Past Surgical History: No Surgical Hx Reported, Cholecystectomy, Tubal Ligation Additional Past Surgical History / Comment(s): wisdom teeth Past Anesthesia/Blood Transfusion Reactions: No Reported Reaction Past Psychological History: ADD/ADHD, Anxiety, Bipolar, Depression Smoking Status: Current every day smoker Past Alcohol Use History: Rare Past Drug Use History: Marijuana - Past Family History Son(s) Family Medical History: Cancer Additional Family Medical History / Comment(s): hepatoblastoma Mother Family Medical History: Liver Disease Additional Family Medical History / Comment(s): Hepatitis C General Exam Limitations: no limitations General appearance: alert, in no apparent distress Head exam: Present: atraumatic, normocephalic, normal inspection Eye exam: Present: normal appearance Neck exam: Present: normal inspection, full ROM Respiratory exam: Present: normal lung sounds bilaterally. Absent: respiratory distress, wheezes, rales, rhonchi, stridor Cardiovascular Exam: Present: regular rate, normal rhythm, normal heart sounds. Absent: systolic murmur, diastolic murmur, rubs, gallop, clicks GI/Abdominal exam: Present: soft, tenderness (lower abdomen). Absent: distended, guarding, rebound, rigid Neurological exam: Present: alert, oriented X3, CN II-XII intact Psychiatric exam: Present: normal affect, normal mood Skin exam: Present: warm, dry, intact, normal color. Absent: rash Course Vital Signs 05/26/22 19:27 Temperature 97.3 F L Pulse Rate 77 Respiratory 20 Rate Blood Pressure 122/85 O2 Sat by Pulse 100 Oximetry Medical Decision Making - Medical Decision Making Was pt. sent in by a medical professional or institution (Dr. PA, GEOLOGY PROFESSOR, urgent care, hospital, or alf...) When possible be specific @ -No Did you speak to anyone other than the patient for history (EMS, parent, family, police, friend...)? What history was obtained from this source @ -No Did you review nursing and triage notes (agree or disagree)? Why? @ -I reviewed and agree with nursing and triage notes Were old charts reviewed (outside hosp., previous admission, EMS record, old EKG, old radiological studies, urgent care reports/EKG's, alf records)? Report findings @ -No old charts were reviewed Differential Diagnosis (chest pain, altered mental status, abdominal pain women, abdominal pain men, vaginal bleeding, weakness, fever, dyspnea, syncope, headache, dizziness, GI bleed, back pain, seizure, CVA, palpatations, mental health)? @ -MDM Differential Abdominal Pain Women: Appendicitis, diverticulosis, ischemic bowel, pancreatitis, hepatitis, UTI, gastroenteritis, incarcerated hernia, bowel obstruction, constipation, inflammatory bowel, hepatitis, peptic ulcer disease, splenic infarction, perforated viscus, vulvitis, ovarian torsion, PID, kidney stone, placenta abruption... This is not meant to be an all-inclusive list EKG interpreted by me (3pts min.). @ -As above X-rays interpreted by me (1pt min.). @ -None done CT interpreted by me (1pt min.). @ -No, radiologist report was reviewed. Appendix is mildly prominent measuring up to 7 mm subtle surrounding fat stranding concerning for early acute uncomplicated appendicitis. Hepatic steatosis. U/S interpreted by me (1pt. min.). @ -None done What testing was considered but not performed or refused? (CT, X-rays, U/S, labs)? Why? @ -None What meds were considered but not given or refused? Why? @ -None Did you discuss the management of the patient with other professionals (professionals i.e. Dr., PA, GEOLOGY PROFESSOR, lab, RT, psych nurse, social staff worker, electrical maintenance man, teacher, community service officer, case planner)? Give summary @ -I discussed this case with general surgeon on-call Dr. Owen Was smoking cessation discussed for >3mins.? @ -No Was critical care preformed (if so, how long)? @ -No Were there social determinants of health that impacted care today? How? (Homelessness, low income, unemployed, alcoholism, drug addiction, transportation, low edu. Level, literacy, decrease access to med. care, nursing home, rehab)? @ -No Was there de-escalation of care discussed even if they declined (Discuss DNR or withdrawal of care, Hospice)? DNR status @ -No What co-morbidities impacted this encounter? (DM, HTN, Smoking, COPD, CAD, Cancer, CVA, ARF, Chemo, Hep., AIDS, mental health diagnosis, sleep apnea, morbid obesity)? @ -None Was patient admitted / discharged? Hospital course, mention meds given and ro ramana, prescriptions, significant lab abnormalities, going to OR and other pertinent info. @ -Patient is a 37-year-old female presenting with chief complaint of lower abdominal pain that started today. Patient states pain started after a coughing fit. She states it is not worse on one side or the other. On physical examination there is tenderness across the lower abdomen. No leukocytosis or anemia. CMP is unremarkable. Urine shows signs of contamination and hCG is negative. CT of the abdomen and pelvis shows signs of early acute uncomplicated appendicitis. I spoke with the surgeon on-call Dr. Owen who advised admission and antibiotics. Patient is given a dose of Rocephin and metronidazole. Given pain medication. Admission orders are placed. Patient is placed nothing by mouth. Patient is agreeable with this plan. I discussed this case with my attending Dr. Boyle. Undiagnosed new problem with uncertain prognosis? @ -No Drug Therapy requiring intensive monitoring for toxicity (Heparin, Nitro, Insul in, Cardizem)? @ -No Were any procedures done? @ -No Diagnosis/symptom? @ -Appendicitis Acute, or Chronic, or Acute on Chronic? @ -Acute Uncomplicated (without systemic symptoms) or Complicated (systemic symptoms)? @ -Uncomplicated Side effects of treatment? @ -No Exacerbation, Progression, or Severe Exacerbation? @ -No Poses a threat to life or bodily function? How? (Chest pain, [place], [place], pneumonia, PE, COPD, DKA, ARF, appy, cholecystitis, CVA, Diverticulitis, Homicidal, Suicidal, threat to staff... and all critical care pts) @ -yes - Lab Data Result diagrams: 05/26/22 19:58 05/26/22 19:58 Lab Results 05/26/22 05/26/22 05/26/22 Range/Units 19:58 19:58 19:58 WBC 9.3 (3.8-10.6) k/uL RBC 3.90 (3.80-5.40) m/uL Hgb 12.4 (11.4-16.0) gm/dL Hct 35.3 (34.0-46.0) % MCV 90.4 (80.0-100.0) fL MCH 31.9 (25.0-35.0) pg MCHC 35.3 (31.0-37.0) g/dL RDW 12.3 (11.5-15.5) % Plt Count 261 (150-450) k/uL MPV 7.6 Neutrophils % 66 % Lymphocytes % 26 % Monocytes % 5 % Eosinophils % 1 % Basophils % 0 % Neutrophils # 6.1 (1.3-7.7) k/uL Lymphocytes # 2.4 (1.0-4.8) k/uL Monocytes # 0.5 (0-1.0) k/uL Eosinophils # 0.1 (0-0.7) k/uL Basophils # 0.0 (0-0.2) k/uL Sodium 136 L (137-145) mmol/L Potassium 3.9 (3.5-5.1) mmol/L Chloride 107 (98-107) mmol/L Carbon Dioxide 26 (22-30) mmol/L Anion Gap 3 mmol/L BUN 8 (7-17) mg/dL Creatinine 0.54 (0.52-1.04) mg/dL Est GFR (CKD-EPI)AfAm >90 (>60 ml/min/1.73 sqM) Est GFR (CKD-EPI)NonAf >90 (>60 ml/min/1.73 sqM) Glucose 94 (74-99) mg/dL Plasma Lactic Acid Gustavo (0.7-2.0) mmol/L Calcium 8.7 (8.4-10.2) mg/dL Total Bilirubin 0.2 (0.2-1.3) mg/dL AST 23 (14-36) U/L ALT 17 (4-34) U/L Alkaline Phosphatase 63 (38-126) U/L Total Protein 6.4 (6.3-8.2) g/dL Albumin 3.9 (3.5-5.0) g/dL Urine Color Light Yellow Urine Appearance Cloudy H (Clear) Urine pH 6.0 (5.0-8.0) Ur Specific Grant 1.015 (1.001-1.035) Urine Protein Negative (Negative) Urine Glucose (UA) Negative (Negative) Urine Ketones Negative (Negative) Urine Blood Negative (Negative) Urine Nitrite Negative (Negative) Urine Bilirubin Negative (Negative) Urine Urobilinogen <2.0 (<2.0) mg/dL Ur Leukocyte Esterase Moderate H (Negative) Urine RBC 2 (0-5) /hpf Urine WBC 33 H (0-5) /hpf Ur Squamous Epith Cells 29 H (0-4) /hpf Urine Mucus Rare H (None) /hpf Urine HCG, Qual (Not Detectd) 05/26/22 05/26/22 Range/Units 19:58 19:58 WBC (3.8-10.6) k/uL RBC (3.80-5.40) m/uL Hgb (11.4-16.0) gm/dL Hct (34.0-46.0) % MCV (80.0-100.0) fL MCH (25.0-35.0) pg MCHC (31.0-37.0) g/dL RDW (11.5-15.5) % Plt Count (150-450) k/uL MPV Neutrophils % % Lymphocytes % % Monocytes % % Eosinophils % % Basophils % % Neutrophils # (1.3-7.7) k/uL Lymphocytes # (1.0-4.8) k/uL Monocytes # (0-1.0) k/uL Eosinophils # (0-0.7) k/uL Basophils # (0-0.2) k/uL Sodium (137-145) mmol/L Potassium (3.5-5.1) mmol/L Chloride (98-107) mmol/L Carbon Dioxide (22-30) mmol/L Anion Gap mmol/L BUN (7-17) mg/dL Creatinine (0.52-1.04) mg/dL Est GFR (CKD-EPI)AfAm (>60 ml/min/1.73 sqM) Est GFR (CKD-EPI)NonAf (>60 ml/min/1.73 sqM) Glucose (74-99) mg/dL Plasma Lactic Acid Gustavo 0.7 (0.7-2.0) mmol/L Calcium (8.4-10.2) mg/dL Total Bilirubin (0.2-1.3) mg/dL AST (14-36) U/L ALT (4-34) U/L Alkaline Phosphatase (38-126) U/L Total Protein (6.3-8.2) g/dL Albumin (3.5-5.0) g/dL Urine Color Urine Appearance (Clear) Urine pH (5.0-8.0) Ur Specific Grant (1.001-1.035) Urine Protein (Negative) Urine Glucose (UA) (Negative) Urine Ketones (Negative) Urine Blood (Negative) Urine Nitrite (Negative) Urine Bilirubin (Negative) Urine Urobilinogen (<2.0) mg/dL Ur Leukocyte Esterase (Negative) Urine RBC (0-5) /hpf Urine WBC (0-5) /hpf Ur Squamous Epith Cells (0-4) /hpf Urine Mucus (None) /hpf Urine HCG, Qual Not Detected (Not Detectd) Disposition Clinical Impression: Acute appendicitis Disposition: ADMITTED IP TO THIS [facility] Condition: Fair Time of Disposition: 21:37
[2022-05-26] MEDS ORDERED: SODIUM CHLORIDE 0.9% 1,000 ML IV SCH (21:45)
--- NOTE | 2022-05-27 05:38 | P.GSHP ---
History of Present Illness H&P Date: 05/27/22 Chief Complaint: Acute appendicitis There is intraluminal female presents to the ER last night with pain that began yesterday earlier in the day. Pain described to be in the lower abdomen on exam was more tender in the right lower quadrant. A CAT scan was obtained showing thickening of the appendix with mild inflammatory changes. Denies nausea or vomiting. No fevers. White blood cell count normal. No history of similar events. - Review of Systems Comment: The patient denies any acute changes in vision or hearing, no dysphagia or odynophagia, no chest pain or shortness of breath, no dysuria or hematuria, no headache, no runny nose, no rectal bleeding or melena, no unexplained weight loss Past Medical History Past Medical History: Thyroid Disorder Additional Past Medical History / Comment(s): genital herpes low magnesium levels and hypoglycemia migraines History of Any Multi-Drug Resistant Organisms: None Reported Past Surgical History: No Surgical Hx Reported, Cholecystectomy, Tubal Ligation Additional Past Surgical History / Comment(s): wisdom teeth Past Anesthesia/Blood Transfusion Reactions: No Reported Reaction Past Psychological History: ADD/ADHD, Anxiety, Bipolar, Depression Smoking Status: Current every day smoker Past Alcohol Use History: Rare Past Drug Use History: Marijuana - Past Family History Son(s) Family Medical History: Cancer Additional Family Medical History / Comment(s): hepatoblastoma Mother Family Medical History: Liver Disease Additional Family Medical History / Comment(s): Hepatitis C Medications and Allergies Home Medications Medication Instructions Recorded Confirmed Type No Known Home Medications 05/26/22 05/26/22 History Allergies Allergy/AdvReac Type Severity Reaction Status Date / Time adhesive tape Allergy skin red Verified 05/26/22 21:54 amoxicillin [Amoxicillin] Allergy Rash/Hives Verified 05/26/22 21:54 lamotrigine [From Lamictal] Allergy Rash/Hives Verified 05/26/22 21:54 Penicillins Allergy Anaphylaxis, Verified 05/26/22 21:54 Rash Surgical - Exam Vital Signs Temp Pulse Resp BP Pulse Ox 97.3 F L 77 20 122/85 100 05/26/22 19:27 05/26/22 19:27 05/26/22 19:27 05/26/22 19:27 05/26/22 19:27 Physical exam: General: Well-developed, well-nourished HEENT: Normocephalic, sclerae nonicteric Abdomen: Right lower quadrant tenderness, nondistended Extremities: No edema Neuro: Alert and oriented Results - Labs 05/26/22 19:58 05/26/22 19:58 Abnormal Lab Results - Last 24 Hours (Table) 05/26/22 05/26/22 Range/Units 19:58 19:58 Sodium 136 L (137-145) mmol/L Urine Appearance Cloudy H (Clear) Ur Leukocyte Esterase Moderate H (Negative) Urine WBC 33 H (0-5) /hpf Ur Squamous Epith Cells 29 H (0-4) /hpf Urine Mucus Rare H (None) /hpf Microbiology - Last 24 Hours (Table) 05/26/22 19:58 Urine Culture - Preliminary Urine,Voided Diabetes panel 05/26/22 Range/Units 19:58 Sodium 136 L (137-145) mmol/L Potassium 3.9 (3.5-5.1) mmol/L Chloride 107 (98-107) mmol/L Carbon Dioxide 26 (22-30) mmol/L BUN 8 (7-17) mg/dL Creatinine 0.54 (0.52-1.04) mg/dL Glucose 94 (74-99) mg/dL Calcium 8.7 (8.4-10.2) mg/dL AST 23 (14-36) U/L ALT 17 (4-34) U/L Alkaline Phosphatase 63 (38-126) U/L Total Protein 6.4 (6.3-8.2) g/dL Albumin 3.9 (3.5-5.0) g/dL Calcium panel 05/26/22 Range/Units 19:58 Calcium 8.7 (8.4-10.2) mg/dL Albumin 3.9 (3.5-5.0) g/dL Pituitary panel 05/26/22 Range/Units 19:58 Sodium 136 L (137-145) mmol/L Potassium 3.9 (3.5-5.1) mmol/L Chloride 107 (98-107) mmol/L Carbon Dioxide 26 (22-30) mmol/L BUN 8 (7-17) mg/dL Creatinine 0.54 (0.52-1.04) mg/dL Glucose 94 (74-99) mg/dL Calcium 8.7 (8.4-10.2) mg/dL Adrenal panel 05/26/22 Range/Units 19:58 Sodium 136 L (137-145) mmol/L Potassium 3.9 (3.5-5.1) mmol/L Chloride 107 (98-107) mmol/L Carbon Dioxide 26 (22-30) mmol/L BUN 8 (7-17) mg/dL Creatinine 0.54 (0.52-1.04) mg/dL Glucose 94 (74-99) mg/dL Calcium 8.7 (8.4-10.2) mg/dL Total Bilirubin 0.2 (0.2-1.3) mg/dL AST 23 (14-36) U/L ALT 17 (4-34) U/L Alkaline Phosphatase 63 (38-126) U/L Total Protein 6.4 (6.3-8.2) g/dL Albumin 3.9 (3.5-5.0) g/dL Assessment and Plan (1) Acute appendicitis Narrative/Plan: 37yo female with acute appendicitis. Will proceed with laparoscopic, possible open appendectomy at this time. Risks of bleeding, infection, hernia, abscess, bladder bowel and ureteral injury, conversion to an open procedure reviewed. She understands and would like to proceed. Current Visit: Yes Status: Acute Code(s): K35.80 - UNSPECIFIED ACUTE APPEN DICITIS SNOMED Code(s): 91548318
[2022-05-27] MEDS ORDERED: LIDOCAINE 2% INJ 20 MG/ML (2 ML VIAL) ONE (06:00)
[2022-05-27] MEDS ORDERED: MIDAZOLAM 2 MG/2 ML VIAL ONE (06:00)
[2022-05-27] MEDS ORDERED: GLYCOPYRROLATE 0.2 MG/ML 2 ML VIAL ONE (06:00)
[2022-05-27] MEDS ORDERED: fentaNYL (PF) 50 MCG/ML 2 ML AMP ONE (06:00)
[2022-05-27] MEDS ORDERED: NEOSTIGMINE 1 MG/ML 10 ML VIAL ONE (06:00)
[2022-05-27] MEDS ORDERED: ROCURONIUM 10 MG/ML (5 ML VIAL) IV ONE (06:00)
[2022-05-27] MEDS ORDERED: PROPOFOL 10 MG/ML 20 ML VIAL IV ONE (06:00)
[2022-05-27] MEDS ORDERED: SUCCINYLCHOLINE CHLORIDE 200 MG/10 ML VIAL IV ONE (06:00)
[2022-05-27] MEDS ORDERED: SODIUM CHLORIDE 0.9% 100 ML with ceFAZolin 2,000 MG IV ONE ×2 (06:04)
[2022-05-27] MEDS ORDERED: IV FLUID CONTINUATION 1,000 ML IV ONE (06:04)
[2022-05-27] MEDS ORDERED: BUPIVACAIN-EPI 0.25%-1:200,000 30 ML VIAL SQ ONE (06:19)
[2022-05-27] MEDS ORDERED: HYDROmorphone 1 MG/ML 1 ML SYRINGE IVP PRN (06:44)
[2022-05-27] MEDS ORDERED: HYDROmorphone 0.5 MG/0.5 ML SYRINGE IVP PRN (06:44)
[2022-05-27] MEDS ORDERED: LACTATED RINGERS 1,000 ML IV ONE ×2 (06:45)
--- NOTE | 2022-05-27 06:53 | P.OP ---
Date of Procedure: 05/27/22 Procedure(s) Performed: PREOPERATIVE DIAGNOSIS: Acute appendicitis POSTOPERATIVE DIAGNOSIS: Same PROCEDURE: Laparoscopic appendectomy SURGEON: Lexie EBL: 10 mL ANESTHESIA: General COMPLICATIONS: None OPERATIVE PROCEDURE: The patient was brought and placed on the operating table in the supine position. The patient was placed under general anesthesia. The abdomen was prepped and draped in the usual sterile fashion. A small vertical infraumbilical incision was made. The fascia was retracted anteriorly with Zo forceps. The Veress needle was advanced into the peritoneal cavity. The saline drop test was normal. Insufflation took place to 15 mmHg. A 5 mm trocar was then placed. An additional 5 mm suprapubic trocar was placed under direct visualization as well as a 12 mm left lower quadrant trocar under direct visualization. The appendix was inspected. It was mildly inflamed. The mesoappendix was dissected using the LigaSure. The base of the appendix was then ligated using a PDS Endoloop area the appendix was removed from the abdominal cavity through the 12 mm trocar itself. The patient had a small amount of serositis fluid in the abdomen. This was likely related to recent menses. The patient was noted have a very small right indirect inguinal hernia. Both ovaries were slightly prominent but no cysts or masses were seen. The small bowel and colon appeared normal. The fascia at the 12 mm site was closed using a Edward Stone 0 Vicryl stitch. The skin at all 3 sites was closed using 4-0 Monocryl sutures. Skin glue was then applied. DISPOSITION: Stable to recovery room
[2022-05-27 07:04] VITALS: RESP 16
[2022-05-27] MEDS ORDERED: LEVOFLOXACIN 500MG-D5W PMX 500 MG in DEXTROSE/WATER 1 100ML.BAG IVPB SCH (08:00)
[2022-05-27] MEDS: HYDROcodone/APAP 5-325MG 1 EACH TAB PO PRN ×2 (08:24→13:13)
[2022-05-27 09:17] VITALS: TEMP 97.7
[2022-05-27 11:54] VITALS: BP 123/84; PULSE 63
--- NOTE | 2022-05-27 14:53 | P.DS ---
Providers Date of admission: 05/26/22 21:56 Expected date of discharge: 05/27/22 Attending physician: Michael Owen Primary care physician: Erin Correa - Discharge Diagnosis(es) (1) Acute appendicitis Patient underwent laparoscopic appendectomy this morning for mild acute appendicitis. Doing well at this time. Tolerating diet. We'll discharge. Follow-up one week. Current Visit: Yes Status: Acute Patient Condition at Discharge: Fair Plan - Discharge Summary New Discharge Prescriptions: New HYDROcodone/APAP 5-325MG [[place] 5-325] 1 tab PO Q6HR PRN 3 Days #10 tab PRN Reason: Analgesia Discharge Medication List HYDROcodone/APAP 5-325MG [[place] 5-325] 1 tab PO Q6HR PRN 3 Days #10 tab 05/27/22 [Rx] Follow up Appointment(s)/Referral(s): Michael Owen MD [Medical Doctor] - 06/03/22 8:15 am Erin Correa DO [Primary Care Provider] - 1-2 days Patient Instructions/Handouts: Laparoscopic Appendectomy (DC)
== END 2022-05-27 15:36 | disposition home or self-care (01) ==
LOC: EC 19:25 → 6NMEDSUR 21:56 → INTOOBSV 21:56 → 6NMEDSUR 22:02
PROVIDERS: ADMIT Surgery; ATTEND Surgery
DX: K35.80 Unspecified acute appendicitis (principal); E07.9 Disorder of thyroid, unspecified; Z86.19 Personal history of other infectious and parasitic diseases; G43.909 Migraine, unspecified, not intractable, without status migrainosus; Z90.49 Acquired absence of other specified parts of digestive tract; Z98.51 Tubal ligation status; Z98.890 Other specified postprocedural states; F90.9 Attention-deficit hyperactivity disorder, unspecified type; F41.9 Anxiety disorder, unspecified; F31.9 Bipolar disorder, unspecified; F17.200 Nicotine dependence, unspecified, uncomplicated; Z80.0 Family history of malignant neoplasm of digestive organs; Z83.1 Family history of other infectious and parasitic diseases; Z88.0 Allergy status to penicillin; Z88.8 Allergy status to other drugs, medicaments and biological substances; Z91.09 Other allergy status, other than to drugs and biological substances
CPT/HCPCS: 44970; 96374; 96375; 99285; 36415; 80053; 83605; 85025; 81001; 81025; 87086; 74177; G0378 ×2; J2250; J0330; J2270; J2710; J2405; J0690; J1956; J0696; J3010; J1885 ×2; J2704; Q9967; J2001

== ENCOUNTER 2022-06-05 16:48 | Emergency (ER) | payer OTHER ==
[2022-06-05 17:26] VITALS: RESP 18; TEMP 98.4
[2022-06-05] MEDS ORDERED: SODIUM CHLORIDE 0.9% 500 ML 500 ML IV ONE (18:13)
[2022-06-05 19:14] LABS: Basophils # (A) 0.1 k/uL (0-0.2); Basophils % (A) 1 %; Eosinophils # (A) 0.2 k/uL (0-0.7); Eosinophils % (A) 1 %; HCT 38.4 % (34.0-46.0); HGB 13.1 gm/dL (11.4-16.0); Lymphocytes # (A) 2.5 k/uL (1.0-4.8); Lymphocytes % (A) 24 %; MCH 30.9 pg (25.0-35.0); MCHC 34.1 g/dL (31.0-37.0); MCV 90.7 fL (80.0-100.0); Mean Platelet Volume 7.9; Monocytes # (A) 0.5 k/uL (0-1.0); Monocytes % (A) 4 %; Neutrophils # (A) 7.4 k/uL (1.3-7.7); Neutrophils % (A) 69 %; Platelet Count 301 k/uL (150-450); RBC 4.24 m/uL (3.80-5.40); RDW 12.1 % (11.5-15.5); WBC 10.8 k/uL (3.8-10.6)
[2022-06-05 19:18] LABS: Appearance,Urine Clear (Clear); Bilirubin,Urine Negative (Negative); Blood,Urine Negative (Negative); Color,Urine Light Yellow; Glucose,Urine (UA) Negative (Negative); Ketones,Urine Negative (Negative); Leukocyte Esterase,Urine Negative (Negative); Nitrite,Urine Negative (Negative); Protein,Urine Negative (Negative); Specific Gravity,Urine 1.009 (1.001-1.035); Urobilinogen,Urine <2.0 mg/dL (<2.0)
[2022-06-05 19:24] LABS: ALT 19 U/L (4-34); African American GFR (CKD) >90 (>60 ml/min/1.73 sqM); Anion Gap 10 mmol/L; Blood Urea Nitrogen 8 mg/dL (7-17); Calcium 9.1 mg/dL (8.4-10.2); Carbon Dioxide 23 mmol/L (22-30); Chloride 106 mmol/L (98-107); Glucose 83 mg/dL (74-99); Non-African American GFR(CKD) >90 (>60 ml/min/1.73 sqM); Sodium 139 mmol/L (137-145); Total Bilirubin 0.6 mg/dL (0.2-1.3)
[2022-06-05 20:17] LABS: Total Protein 7.6 g/dL (6.3-8.2)
[2022-06-05 20:18] LABS: AST 33 U/L (14-36); Albumin 4.7 g/dL (3.5-5.0); Alkaline Phosphatase 53 U/L (38-126)
[2022-06-05] MEDS ORDERED: HYDROcodone/APAP 5-325MG 1 EACH TAB PO STA (20:58)
--- NOTE | 2022-06-05 21:01 | ED ---
General Adult HPI - General Chief complaint: Recheck/Abnormal Lab/Rx Stated complaint: pain - post op Time Seen by Provider: 06/05/22 17:42 Source: patient, RN notes reviewed Mode of arrival: ambulatory Limitations: no limitations - History of Present Illness Initial comments: 37-year-old female presents to the emergency department with a chief complaint of left thumb pain. Patient is 9 days status post laparoscopic appendectomy. Her surgery was performed by Dr. Barnes on 05/27/2022. She reports that today she states and INCREASED left lower quadrant muscle pain that is sharp with movement however turn into a burning sensation. She denies any trauma or falls. She denies any fever, chills, headache, chest pain palpitations, shortness of breath, nausea, vomiting, diarrhea. Last bowel movement was this morning and was normal for her. She has been taking her pain medication as prescribed. - Related Data Previous Rx's Medication Instructions Recorded HYDROcodone/APAP 5-325MG [[place] 1 tab PO Q6HR PRN 3 Days #10 tab 05/27/22 5-325] Allergies Allergy/AdvReac Type Severity Reaction Status Date / Time adhesive tape Allergy skin red Verified 06/05/22 17:27 amoxicillin [Amoxicillin] Allergy Rash/Hives Verified 06/05/22 17:27 lamotrigine [From Lamictal] Allergy Rash/Hives Verified 06/05/22 17:27 Penicillins Allergy Anaphylaxis, Verified 06/05/22 17:27 Rash Review of Systems ROS Statement: Those systems with pertinent positive or pertinent negative responses have been documented in the HPI. ROS Other: All systems not noted in ROS Statement are negative. Past Medical History Past Medical History: Thyroid Disorder Additional Past Medical History / Comment(s): genital herpes low magnesium [place] and hypoglycemia migraines History of Any Multi-Drug Resistant Organisms: None Reported Past Surgical History: No Surgical Hx Reported, Appendectomy, Cholecystectomy, Tubal Ligation Additional Past Surgical History / Comment(s): wisdom teeth Past Anesthesia/Blood Transfusion Reactions: No Reported Reaction Past Psychological History: ADD/ADHD, Anxiety, Bipolar, Depression Smoking Status: Current every day smoker Past Alcohol Use History: Rare Past Drug Use History: Marijuana - Past Family History Son(s) Family Medical History: Cancer Additional Family Medical History / Comment(s): hepatoblastoma Mother Family Medical History: Liver Disease Additional Family Medical History / Comment(s): Hepatitis C General Exam Limitations: no limitations General appearance: alert, in no apparent distress Head exam: Present: atraumatic, normocephalic, normal inspection Eye exam: Present: normal appearance, PERRL, EOMI. Absent: scleral icterus, conjunctival injection, periorbital swelling ENT exam: Present: normal exam, mucous membranes moist Neck exam: Present: normal inspection. Absent: tenderness, meningismus, lymphadenopathy Respiratory exam: Present: normal lung sounds bilaterally. Absent: respiratory distress, wheezes, rales, rhonchi, stridor Cardiovascular Exam: Present: regular rate, normal rhythm, normal heart sounds. Absent: systolic murmur, diastolic murmur, rubs, gallop, clicks GI/Abdominal exam: Present: soft, tenderness (mild LLQ), normal bowel sounds, other (surgical incisions appear well healed ). Absent: distended, guarding, rebound, rigid Extremities exam: Present: normal inspection, full ROM, normal capillary refill. Absent: tenderness, pedal edema, joint swelling, calf tenderness Back exam: Present: normal inspection Neurological exam: Present: alert, oriented X3, CN II-XII intact Psychiatric exam: Present: normal affect, normal mood Skin exam: Present: warm, dry, intact, normal color. Absent: rash Course Vital Signs 06/05/22 06/05/22 06/05/22 17:24 18:56 21:09 Temperature 98.4 F Pulse Rate 84 71 79 Respiratory 18 18 18 Rate Blood Pressure 139/91 114/77 116/80 O2 Sat by Pulse 100 100 100 Oximetry Medical Decision Making - Medical Decision Making Was pt. sent in by a medical professional or institution (, PA, SPA RECEPTIONIST, urgent care, hospital, or jail...) When possible be specific @ -[No] Did you speak to anyone other than the patient for history (EMS, parent, family, police, friend...)? What history was obtained from this source @ -[No] Did you review nursing and triage notes (agree or disagree)? Why? @ -[I reviewed and agree with nursing and triage notes] Were old charts reviewed (outside hosp., previous admission, EMS record, old EKG, old radiological studies, urgent care reports/EKG's, jail records)? Report findings @ -[No old charts were reviewed] Differential Diagnosis (chest pain, altered mental status, abdominal pain women, abdominal pain men, vaginal bleeding, weakness, fever, dyspnea, syncope, headache, dizziness, GI bleed, back pain, seizure, CVA, palpatations, mental health)? @ -[not applicable] EKG interpreted by me (3pts min.). @ -[As above] X-rays interpreted by me (1pt min.). @ -[None done] CT interpreted by me (1pt min.). @ -[None done] U/S interpreted by me (1pt. min.). @ -[None done] What testing was considered but not performed or refused? (CT, X-rays, U/S, labs)? Why? @ -[None] What meds were considered but not given or refused? Why? @ -[None] Did you discuss the management of the patient with other professionals (professionals i.e. , PA, SPA RECEPTIONIST, lab, RT, psych nurse, social contact worker, saxophone assembler, teacher, correctional probation officer, outpatient case manager)? Give summary @ -[No] Was smoking cessation discussed for >3mins.? @ -[No] Was critical care preformed (if so, how long)? @ -[No] Were there social determinants of health that impacted care today? How? (Homelessness, low income, unemployed, alcoholism, drug addiction, transportation, low edu. Level, literacy, decrease access to med. care, senior care, rehab)? @ -[No] Was there de-escalation of care discussed even if they declined (Discuss DNR or withdrawal of care, Hospice)? DNR status @ -[No] What co-morbidities impacted this encounter? (DM, HTN, Smoking, COPD, CAD, Cancer, CVA, ARF, Chemo, Hep., AIDS, mental health diagnosis, sleep apnea, morbid obesity)? @ -[None] Was patient admitted / discharged? Hospital course, mention meds given and route, prescriptions, significant lab abnormalities, going to OR and other pertinent info. @ -37-year-old female presents to the emergency department with abdominal pain. Patient had a thorough history and physical performed. Physical exam reveals heart rate regular rate and rhythm, lungs clear to auscultation bilaterally abdomen is soft and nontender. Her incision sites appear well healed. Patient was given one [place] with symptomatic relief on the emergency department. Lab work was essentially unremarkable. I discussed the results in detail with the patient, patient verbalized understanding and all questions were addressed. Return precautions were discussed. She follow-up with her primary care in 1-2 days. The patient was discharged in stable condition. I discussed the case with EUGENIO Tobar who agrees with the plan of care Undiagnosed new problem with uncertain prognosis? @ -[No] Drug Therapy requiring intensive monitoring for toxicity (Heparin, Nitro, Insulin, Cardizem)? @ -[No] Were any procedures done? @ -[No] Diagnosis/symptom? @ -L abdominal muscle strain Acute, or Chronic, or Acute on Chronic? @ -acute Uncomplicated (without systemic symptoms) or Complicated (systemic symptoms)? @ -uncomplicated Side effects of treatment? @ -[No] Exacerbation, Progression, or Severe Exacerbation? @ -[No] Poses a threat to life or bodily function? How? (Chest pain, [place], [place], pneumonia, PE, COPD, DKA, ARF, appy, cholecystitis, CVA, Diverticulitis, Homicidal, Suicidal, threat to staff... and all critical care pts) @ -[No] - Lab Data Result diagrams: 06/05/22 18:48 06/05/22 18:48 Lab Results 06/05/22 06/05/22 06/05/22 Range/Units 18:48 18:48 18:48 WBC 10.8 H (3.8-10.6) k/uL RBC 4.24 (3.80-5.40) m/uL Hgb 13.1 (11.4-16.0) gm/dL Hct 38.4 (34.0-46.0) % MCV 90.7 (80.0-100.0) fL MCH 30.9 (25.0-35.0) pg MCHC 34.1 (31.0-37.0) g/dL RDW 12.1 (11.5-15.5) % Plt Count 301 (150-450) k/uL MPV 7.9 Neutrophils % 69 % Lymphocytes % 24 % Monocytes % 4 % Eosinophils % 1 % Basophils % 1 % Neutrophils # 7.4 (1.3-7.7) k/uL Lymphocytes # 2.5 (1.0-4.8) k/uL Monocytes # 0.5 (0-1.0) k/uL Eosinophils # 0.2 (0-0.7) k/uL Basophils # 0.1 (0-0.2) k/uL Sodium (137-145) mmol/L Potassium (3.5-5.1) mmol/L Chloride (98-107) mmol/L Carbon Dioxide (22-30) mmol/L Anion Gap mmol/L BUN (7-17) mg/dL Creatinine (0.52-1.04) mg/dL Est GFR (CKD-EPI)AfAm (>60 ml/min/1.73 sqM) Est GFR (CKD-EPI)NonAf (>60 ml/min/1.73 sqM) Glucose (74-99) mg/dL Calcium (8.4-10.2) mg/dL Total Bilirubin (0.2-1.3) mg/dL AST (14-36) U/L ALT (4-34) U/L Alkaline Phosphatase (38-126) U/L Total Protein (6.3-8.2) g/dL Albumin (3.5-5.0) g/dL Urine Color Light Yellow Urine Appearance Clear (Clear) Urine pH 6.0 (5.0-8.0) Ur Specific [place] 1.009 (1.001-1.035) Urine Protein Negative (Negative) Urine Glucose (UA) Negative (Negative) Urine Ketones Negative (Negative) Urine Blood Negative (Negative) Urine Nitrite Negative (Negative) Urine Bilirubin Negative (Negative) Urine Urobilinogen <2.0 (<2.0) mg/dL Ur Leukocyte Esterase Negative (Negative) Urine HCG, Qual Not Detected (Not Detectd) 06/05/22 Range/Units 18:48 WBC (3.8-10.6) k/uL RBC (3.80-5.40) m/uL Hgb (11.4-16.0) gm/dL Hct (34.0-46.0) % MCV (80.0-100.0) fL MCH (25.0-35.0) pg MCHC (31.0-37.0) g/dL RDW (11.5-15.5) % Plt Count (150-450) k/uL MPV Neutrophils % % Lymphocytes % % Monocytes % % Eosinophils % % Basophils % % Neutrophils # (1.3-7.7) k/uL Lymphocytes # (1.0-4.8) k/uL Monocytes # (0-1.0) k/uL Eosinophils # (0-0.7) k/uL Basophils # (0-0.2) k/uL Sodium 139 (137-145) mmol/L Potassium 4.0 (3.5-5.1) mmol/L Chloride 106 (98-107) mmol/L Carbon Dioxide 23 (22-30) mmol/L Anion Gap 10 mmol/L BUN 8 (7-17) mg/dL Creatinine 0.48 L (0.52-1.04) mg/dL Est GFR (CKD-EPI)AfAm >90 (>60 ml/min/1.73 sqM) Est GFR (CKD-EPI)NonAf >90 (>60 ml/min/1.73 sqM) Glucose 83 (74-99) mg/dL Calcium 9.1 (8.4-10.2) mg/dL Total Bilirubin 0.6 (0.2-1.3) mg/dL AST 33 (14-36) U/L ALT 19 (4-34) U/L Alkaline Phosphatase 53 (38-126) U/L Total Protein 7.6 (6.3-8.2) g/dL Albumin 4.7 (3.5-5.0) g/dL Urine Color Urine Appearance (Clear) Urine pH (5.0-8.0) Ur Specific [place] (1.001-1.035) Urine Protein (Negative) Urine Glucose (UA) (Negative) Urine Ketones (Negative) Urine Blood (Negative) Urine Nitrite (Negative) Urine Bilirubin (Negative) Urine Urobilinogen (<2.0) mg/dL Ur Leukocyte Esterase (Negative) Urine HCG, Qual (Not Detectd) Disposition Clinical Impression: Encounter for wound re-check, Muscle strain Disposition: HOME SELF-CARE Condition: Stable Additional Instructions: Return to the nearest emergency department if symptoms worsen or persist. Is patient prescribed a controlled substance at d/c from ED?: No Referrals: Erin Correa DO [Primary Care Provider] - 1-2 days Michael Owen MD [Medical Doctor] - 1-2 days Time of Disposition: 21:02
[2022-06-05] MEDS ORDERED: ONDANSETRON 4 MG ODT STARTER PACK 2 TAB BTL PO STA (21:02)
[2022-06-05 21:12] VITALS: BP 116/80; PULSE 79
== END 2022-06-05 21:21 | disposition home or self-care (01) ==
LOC: EC 16:48
DX: S39.011A Strain of muscle, fascia and tendon of abdomen, initial encounter (principal); F17.200 Nicotine dependence, unspecified, uncomplicated; F12.90 Cannabis use, unspecified, uncomplicated; F31.9 Bipolar disorder, unspecified; F41.9 Anxiety disorder, unspecified; Z48.01 Encounter for change or removal of surgical wound dressing; Z88.0 Allergy status to penicillin; X58.XXXA Exposure to other specified factors, initial encounter
CPT/HCPCS: 99283; 36415; 80053; 85025; 81003; 81025; 96360; S0119

== ENCOUNTER 2022-06-11 06:44 | Emergency (ER) | payer OTHER ==
[2022-06-11] MEDS ORDERED: METOCLOPRAMIDE 5 MG/ML 2 ML VIAL IVP STA (06:59)
[2022-06-11] MEDS ORDERED: SODIUM CHLORIDE 0.9% 2,000 ML IV STA (06:59)
[2022-06-11] MEDS ORDERED: diphenhydrAMINE 50 MG/ML 1 ML VIAL IVP STA (06:59)
--- NOTE | 2022-06-11 07:02 | ED ---
Nausea/Vomiting/Diarrhea HPI - General Chief complaint: Nausea/Vomiting/Diarrhea Stated complaint: vomiting,post op Time Seen by Provider: 06/11/22 06:54 Source: patient, RN notes reviewed, old records reviewed Mode of arrival: ambulatory Limitations: no limitations - History of Present Illness Initial comments: 37-year-old female presents emergency Department chief complaint nausea vomiting. Patient discharged from yesterday afternoon. She's been vomiting throughout the night. Holding down states she has an appetite she has mild some mild left-sided comfort and rates her back. She states constipated she attempts to take a laxative just prior to her starting her emesis. Denies any chance . Patient states she had an appendectomy a few weeks ago by Dr. Owen has followed up twice. Denies any other associated complaints no fevers chills - Related Data Previous Rx's Medication Instructions Recorded HYDROcodone/APAP 5-325MG [[place] 1 tab PO Q6HR PRN 3 Days #10 tab 05/27/22 5-325] Ondansetron Odt [Zofran Odt] 4 mg PO Q8HR PRN #10 tab 06/11/22 Allergies Allergy/AdvReac Type Severity Reaction Status Date / Time adhesive tape Allergy skin red Verified 06/11/22 06:47 amoxicillin [Amoxicillin] Allergy Rash/Hives Verified 06/11/22 06:47 lamotrigine [From Lamictal] Allergy Rash/Hives Verified 06/11/22 06:47 Penicillins Allergy Anaphylaxis, Verified 06/11/22 06:47 Rash Review of Systems ROS Statement: Those systems with pertinent positive or pertinent negative responses have been documented in the HPI. ROS Other: All systems not noted in ROS Statement are negative. Past Medical History Past Medical History: Thyroid Disorder Additional Past Medical History / Comment(s): genital herpes low magnesium levels and hypoglycemia migraines History of Any Multi-Drug Resistant Organisms: None Reported Past Surgical History: Appendectomy, Cholecystectomy, Tubal Ligation Additional Past Surgical History / Comment(s): wisdom teeth Past Anesthesia/Blood Transfusion Reactions: No Reported Reaction Past Psychological History: ADD/ADHD, Anxiety, Bipolar, Depression Smoking Status: Vaper Past Alcohol Use History: Rare Past Drug Use History: Marijuana - Past Family History Son(s) Family Medical History: Cancer Additional Family Medical History / Comment(s): hepatoblastoma Mother Family Medical History: Liver Disease Additional Family Medical History / Comment(s): Hepatitis C General Exam Limitations: no limitations General appearance: alert, in no apparent distress Head exam: Present: atraumatic, normocephalic, normal inspection Eye exam: Present: normal appearance, PERRL, EOMI. Absent: scleral icterus, conjunctival injection, periorbital swelling ENT exam: Present: normal oropharynx, mucous membranes dry. Absent: normal exam, mucous membranes moist Neck exam: Present: normal inspection, full ROM. Absent: tenderness, meningismus, lymphadenopathy Respiratory exam: Present: normal lung sounds bilaterally. Absent: respiratory distress, wheezes, rales, rhonchi, stridor Cardiovascular Exam: Present: regular rate, normal rhythm, normal heart sounds. Absent: systolic murmur, diastolic murmur, rubs, gallop, clicks GI/Abdominal exam: Present: soft, tenderness (Minimal left-sided), normal bowel sounds. Absent: distended, guarding, rebound, rigid Back exam: Present: CVA tenderness (L). Absent: CVA tenderness (R) Neurological exam: Present: alert Course Vital Signs 06/11/22 06:47 Temperature 98 F Pulse Rate 99 Respiratory 18 Rate Blood Pressure 123/89 O2 Sat by Pulse 98 Oximetry Medical Decision Making - Medical Decision Making Was pt. sent in by a medical professional or institution (JOSE Rosa, WARDROBE TECHNICIAN, urgent care, hospital, or fci...) When possible be specific @ -No Did you speak to anyone other than the patient for history (EMS, parent, family, police, friend...)? What history was obtained from this source @ -No Did you review nursing and triage notes (agree or disagree)? Why? @ -I reviewed and agree with nursing and triage notes Were old charts reviewed (outside hosp., previous admission, EMS record, old EKG, old radiological studies, urgent care reports/EKG's, fci records)? Report findings @ -No old charts were reviewed Differential Diagnosis (chest pain, altered mental status, abdominal pain women, abdominal pain men, vaginal bleeding, weakness, fever, dyspnea, syncope, headache, dizziness, GI bleed, back pain, seizure, CVA, palpatations, mental health)? @ -Nausea vomiting, constipation, abdominal pain, gastroenteritis, bowel obstruction, this list is not all inclusive EKG interpreted by me (3pts min.). @ -None X-rays interpreted by me (1pt min.). @ -X-ray shows nonobstructive bowel gas pattern CT interpreted by me (1pt min.). @ -None done U/S interpreted by me (1pt. min.). @ -None done What testing was considered but not performed or refused? (CT, X-rays, U/S, labs)? Why? @ -None What meds were considered but not given or refused? Why? @ -None Did you discuss the management of the patient with other professionals (professionals i.e. , PA, WARDROBE TECHNICIAN, lab, RT, psych nurse, clinical social work aide, barn boss, teacher, associate loan officer, counseling case manager)? Give summary @ -No Was smoking cessation discussed for >3mins.? @ -No Was critical care preformed (if so, how long)? @ -No Were there social determinants of health that impacted care today? How? (Homelessness, low income, unemployed, alcoholism, drug addiction, transportation, low edu. Level, literacy, decrease access to med. care, half-way, rehab)? @ -No Was there de-escalation of care discussed even if they declined (Discuss DNR or withdrawal of care, Hospice)? DNR status @ -No What co-morbidities impacted this encounter? (DM, HTN, Smoking, COPD, CAD, Cancer, CVA, ARF, Chemo, Hep., AIDS, mental health diagnosis, sleep apnea, morbid obesity)? @ -None Was patient admitted / discharged? Hospital course, mention meds given and route, prescriptions, significant lab abnormalities, going to OR and other pertinent info. @ -Discharge patient feels greatly improved after antiemetics normal laboratory studies. Patient does not have any evidence of bowel obstruction, patient discharged in stable condition. Undiagnosed new problem with uncertain prognosis? @ -No Drug Therapy requiring intensive monitoring for toxicity (Heparin, Nitro, Insulin, Cardizem)? @ -No Were any procedures done? @ -No Diagnosis/symptom? @ -Nausea vomiting Acute, or Chronic, or Acute on Chronic? @ -Acute Uncomplicated (without systemic symptoms) or Complicated (systemic symptoms)? @ -. Uncomplicated Side effects of treatment? @ -No Exacerbation, Progression, or Severe Exacerbation? @ -No Poses a threat to life or bodily function? How? (Chest pain, [place], [place], pneumonia, PE, COPD, DKA, ARF, appy, cholecystitis, CVA, Diverticulitis, Homicidal, Suicidal, threat to staff... and all critical care pts) @ -No - Lab Data Result diagrams: 06/11/22 07:02 06/11/22 07:02 Lab Results 06/11/22 06/11/22 Range/Units 07:02 07:02 WBC 6.9 (3.8-10.6) k/uL RBC 4.35 (3.80-5.40) m/uL Hgb 13.7 (11.4-16.0) gm/dL Hct 38.7 (34.0-46.0) % MCV 89.0 (80.0-100.0) fL MCH 31.5 (25.0-35.0) pg MCHC 35.4 (31.0-37.0) g/dL RDW 12.4 (11.5-15.5) % Plt Count 285 (150-450) k/uL MPV 8.0 Neutrophils % 89 % Lymphocytes % 4 % Monocytes % 5 % Eosinophils % 0 % Basophils % 0 % Neutrophils # 6.2 (1.3-7.7) k/uL Lymphocytes # 0.3 L (1.0-4.8) k/uL Monocytes # 0.4 (0-1.0) k/uL Eosinophils # 0.0 (0-0.7) k/uL Basophils # 0.0 (0-0.2) k/uL Sodium 137 (137-145) mmol/L Potassium 3.4 L (3.5-5.1) mmol/L Chloride 104 (98-107) mmol/L Carbon Dioxide 21 L (22-30) mmol/L Anion Gap 12 mmol/L BUN 12 (7-17) mg/dL Creatinine 0.57 (0.52-1.04) mg/dL Est GFR (CKD-EPI)AfAm >90 (>60 ml/min/1.73 sqM) Est GFR (CKD-EPI)NonAf >90 (>60 ml/min/1.73 sqM) Glucose 113 H (74-99) mg/dL Calcium 9.4 (8.4-10.2) mg/dL Total Bilirubin 0.7 (0.2-1.3) mg/dL AST 26 (14-36) U/L ALT 21 (4-34) U/L Alkaline Phosphatase 66 (38-126) U/L Total Protein 7.4 (6.3-8.2) g/dL Albumin 4.5 (3.5-5.0) g/dL Lipase 90 (23-300) U/L Disposition Clinical Impression: Nausea & vomiting, Dehydration Disposition: HOME SELF-CARE Condition: Stable Instructions (If sedation given, give patient instructions): Acute Nausea and Vomiting (ED) Additional Instructions: Please return to the Emergency Department if symptoms worsen or any other concerns. Prescriptions: Ondansetron Odt [Zofran Odt] 4 mg PO Q8HR PRN #10 tab PRN Reason: Nausea Is patient prescribed a controlled substance at d/c from ED?: No Referrals: Erin Correa DO [Primary Care Provider] - 1-2 days Time of Disposition: 08:36
[2022-06-11 07:21] LABS: Basophils % (A) 0 %; Eosinophils % (A) 0 %; HCT 38.7 % (34.0-46.0); HGB 13.7 gm/dL (11.4-16.0); Lymphocytes # (A) 0.3 k/uL (1.0-4.8); Lymphocytes % (A) 4 %; MCH 31.5 pg (25.0-35.0); MCHC 35.4 g/dL (31.0-37.0); Monocytes # (A) 0.4 k/uL (0-1.0); Monocytes % (A) 5 %; Neutrophils # (A) 6.2 k/uL (1.3-7.7); Neutrophils % (A) 89 %; Platelet Count 285 k/uL (150-450); RBC 4.35 m/uL (3.80-5.40); RDW 12.4 % (11.5-15.5); WBC 6.9 k/uL (3.8-10.6)
[2022-06-11 07:25] LABS: ALT 21 U/L (4-34); AST 26 U/L (14-36); African American GFR (CKD) >90 (>60 ml/min/1.73 sqM); Albumin 4.5 g/dL (3.5-5.0); Alkaline Phosphatase 66 U/L (38-126); Anion Gap 12 mmol/L; Blood Urea Nitrogen 12 mg/dL (7-17); Calcium 9.4 mg/dL (8.4-10.2); Carbon Dioxide 21 mmol/L (22-30); Chloride 104 mmol/L (98-107); Glucose 113 mg/dL (74-99); Lipase 90 U/L (23-300); Non-African American GFR(CKD) >90 (>60 ml/min/1.73 sqM); Potassium 3.4 mmol/L (3.5-5.1); Sodium 137 mmol/L (137-145); Total Bilirubin 0.7 mg/dL (0.2-1.3); Total Protein 7.4 g/dL (6.3-8.2)
--- NOTE | 2022-06-11 07:26 | XR ---
EXAMINATION TYPE: XR KUB DATE OF EXAM: 06/11/2022 7:20 AM CLINICAL HISTORY: Abdominal pain and nausea and vomiting. Recent appendectomy 2 weeks ago. TECHNIQUE: Two Upright KUB images of the abdomen are obtained. COMPARISON: CT abdomen and pelvis May 26, 2022. FINDINGS: Some paucity of bowel gas. Gas seen in nondistended stomach. Some scattered gas seen in non distended small and large bowel loops in the left abdomen. Occasional scattered tiny pelvic phlebolit hs redemonstrated. Lung bases remain clear. No free air. Osseous structures are intact. Cholecystecto my clip is redemonstrated. IMPRESSION: Overall nonspecific strongly favor nonobstructive bowel gas pattern.
[2022-06-11 09:09] VITALS: RESP 16
[2022-06-11 09:15] LABS: Appearance,Urine Cloudy (Clear); Bacteria,Urine Rare /hpf; Bilirubin,Urine Negative (Negative); Blood,Urine Negative (Negative); Color,Urine Yellow; Glucose,Urine (UA) Negative (Negative); Ketones,Urine Negative (Negative); Leukocyte Esterase,Urine Moderate (Negative); Mucus,Urine Many /hpf; Nitrite,Urine Negative (Negative); Protein,Urine Trace (Negative); Specific Gravity,Urine 1.019 (1.001-1.035); Squamous Epithelial Cell,Urine 23 /hpf (0-4); Urobilinogen,Urine <2.0 mg/dL (<2.0); WBC,Urine 5 /hpf (0-5)
[2022-06-11 10:20] VITALS: BP 107/64; PULSE 78; TEMP 98.5
== END 2022-06-11 10:30 | disposition home or self-care (01) ==
LOC: EC 06:44
DX: R11.2 Nausea with vomiting, unspecified (principal); E86.0 Dehydration; F90.9 Attention-deficit hyperactivity disorder, unspecified type; F41.9 Anxiety disorder, unspecified; F31.9 Bipolar disorder, unspecified; F17.290 Nicotine dependence, other tobacco product, uncomplicated; F12.90 Cannabis use, unspecified, uncomplicated; Z91.09 Other allergy status, other than to drugs and biological substances; Z88.0 Allergy status to penicillin; Z88.8 Allergy status to other drugs, medicaments and biological substances
CPT/HCPCS: 36415; 80053; 83690; 85025; 81001; 81025; 74018; 99284; 96374; 96375; 96361 ×2; J1200; J2765

== ENCOUNTER → 2022-11-19 | Outpatient (CLI) | payer OTHER ==
--- NOTE | 2022-11-19 11:07 | CA ---
Exercise Stress Test Report Name: Maty Ellis Exam Date: 11/19/2022 08:58 Exam Location: [facility] Stress Ht (in): 63 Wt (lb): 158 BSA: 1.75 Ordering Phys: Erin Correa DO Referring Phys: Radha Ayala Technologist: David Tony Age: 37 Gender: F : 1985 Procedure CPT: Indications: R07.9 CHEST PAIN ICD-10 Codes: Patient History: Medications: CELEBREX, PROSAC Meds past 24 hrs: Pretest Chest Pain: STRESS TEST Joselo Protocol Exercise Duration (min:sec): 09:[address] Depressions (mm): Angina Score: Gerber Score: Resting HR (bpm): 71 Peak HR (bpm): 181 Resting BP (mmHg): 123 / 80 Peak BP (mmHg): 176 / 111 MPHR: 184 Target HR: 156 % MPHR: 98 METS: 10.3 Total Dose: Peak Dose: Atropine: Double Product: 89838 BP Response: Stress Termination: Reached target heart rate Stress Symptoms: SHORT OF BREATH Stress Summary: ECG ANALYSIS Resting ECG: Normal sinus rhythm normal axis normal intervals Stress ECG: Patient exercised on Joselo protocol for a total of 9 minutes achieving 10 met 85% of predicted maximal heart rate without chest pain or diagnostic ST segment depression CONCLUSIONS Good exercise tolerance Negative stress test by EKG criteria Dr. Joel Kwan MD (Electronically Signed) Final Date: 19 November 2022 11:07
== END | disposition home or self-care (01) ==
LOC: RADNMMAIN 08:34
PROVIDERS: ATTEND Family Medicine
DX: R07.9 Chest pain, unspecified (principal)
CPT/HCPCS: 93017

== ENCOUNTER 2023-01-07 14:39 | Emergency (ER) | payer OTHER ==
[2023-01-07 15:11] VITALS: TEMP 98.3
[2023-01-07 15:59] LABS: Appearance,Urine Clear (Clear); Bacteria,Urine Rare /hpf; Bilirubin,Urine 1+ (Negative); Blood,Urine Trace (Negative); Glucose,Urine (UA) Negative (Negative); Ketones,Urine Negative (Negative); Leukocyte Esterase,Urine Moderate (Negative); Nitrite,Urine Positive (Negative); Protein,Urine Negative (Negative); RBC,Urine 1 /hpf (0-5); Specific Gravity,Urine 1.006 (1.001-1.035); Squamous Epithelial Cell,Urine 8 /hpf (0-4); WBC,Urine 10 /hpf (0-5)
[2023-01-07 16:11] LABS: Color,Urine Orange
[2023-01-07] MEDS ORDERED: NITROFURANTOIN MONOHYD/M-CRYST 100 MG CAP PO STA (16:17)
--- NOTE | 2023-01-07 16:22 | ED ---
Female Urogenital HPI - General Chief complaint: Urogenital Stated complaint: possible blood inurine Time Seen by Provider: 01/07/23 15:44 Source: patient Mode of arrival: ambulatory Limitations: no limitations - History of Present Illness Initial comments: 37-year-old female presents to the emergency department with dysuria and orange urine. States that earlier today she was having some dysuria and increased frequency of urination. She did take Azo because of her symptoms. She then took a nap and woke up and had bright red urine. Patient was concerned about the color and therefore presents to the emergency department for evaluation. She denies any fevers. No back pain. Denies any vaginal bleeding or discharge. Has had some loose stools. She has had a history of a previous tubal ligation. She does admit to some suprapubic discomfort. No concern for sexually transmitted infections. No other alleviating, precipitating or modifying f actors - Related Data Previous Rx's Medication Instructions Recorded HYDROcodone/APAP 5-325MG [[place] 1 tab PO Q6HR PRN 3 Days #10 tab 05/27/22 5-325] Ondansetron Odt [Zofran Odt] 4 mg PO Q8HR PRN #10 tab 06/11/22 Nitrofurantoin Monohyd/M-Cryst 100 mg PO Q12HR #14 cap 01/07/23 [Macrobid] Allergies Allergy/AdvReac Type Severity Reaction Status Date / Time adhesive tape Allergy skin red Verified 01/07/23 15:11 amoxicillin [Amoxicillin] Allergy Rash/Hives Verified 01/07/23 15:11 lamotrigine [From Lamictal] Allergy Rash/Hives Verified 01/07/23 15:11 Penicillins Allergy Anaphylaxis, Verified 01/07/23 15:11 Rash Review of Systems ROS Statement: Those systems with pertinent positive or pertinent negative responses have been documented in the HPI. ROS Other: All systems not noted in ROS Statement are negative. Past Medical History Past Medical History: Thyroid Disorder Additional Past Medical History / Comment(s): genital herpes low magnesium levels and hypoglycemia migraines History of Any Multi-Drug Resistant Organisms: None Reported Past Surgical History: Appendectomy, Cholecystectomy, Tubal Ligation Additional Past Surgical History / Comment(s): wisdom teeth Past Anesthesia/Blood Transfusion Reactions: No Reported Reaction Past Psychological History: ADD/ADHD, Anxiety, Bipolar, Depression Smoking Status: Vaper Past Alcohol Use History: Rare Past Drug Use History: Marijuana - Past Family History Son(s) Family Medical History: Cancer Additional Family Medical History / Comment(s): hepatoblastoma Mother Family Medical History: Liver Disease Additional Family Medical History / Comment(s): Hepatitis C General Exam Limitations: no limitations General appearance: alert, in no apparent distress Head exam: Present: atraumatic, normocephalic, normal inspection Eye exam: Present: normal appearance, PERRL, EOMI. Absent: scleral icterus, conjunctival injection, periorbital swelling ENT exam: Present: normal exam, mucous membranes moist Neck exam: Present: normal inspection. Absent: tenderness, meningismus, lymphadenopathy Respiratory exam: Present: normal lung sounds bilaterally. Absent: respiratory distress, wheezes, rales, rhonchi, stridor Cardiovascular Exam: Present: regular rate, normal rhythm, normal heart sounds. Absent: systolic murmur, diastolic murmur, rubs, gallop, clicks GI/Abdominal exam: Present: soft, normal bowel sounds. Absent: distended, tenderness, guarding, rebound, rigid Extremities exam: Present: normal inspection, full ROM, normal capillary refill. Absent: tenderness, pedal edema, joint swelling, calf tenderness Back exam: Present: normal inspection Neurological exam: Present: alert, oriented X3, CN II-XII intact Psychiatric exam: Present: normal affect, normal mood Skin exam: Present: warm, dry, intact, normal color. Absent: rash Course Vital Signs 01/07/23 01/07/23 01/07/23 15:08 16:11 16:35 Temperature 98.3 F Pulse Rate 77 80 80 Respiratory 20 16 16 Rate Blood Pressure 125/89 140/86 140/86 O2 Sat by Pulse 100 98 Oximetry Medical Decision Making - Medical Decision Making Was pt. sent in by a medical professional or institution (, PA, MASTER CHEF, urgent care, hospital, or long-term...) When possible be specific @ -No Did you speak to anyone other than the patient for history (EMS, parent, family, police, friend...)? What history was obtained from this source @ -No Did you review nursing and triage notes (agree or disagree)? Why? @ -I reviewed and agree with nursing and triage notes Were old charts reviewed (outside hosp., previous admission, EMS record, old EKG, old radiological studies, urgent care reports/EKG's, long-term records)? Report findings @ -No old charts were reviewed Differential Diagnosis (chest pain, altered mental status, abdominal pain women, abdominal pain men, vaginal bleeding, weakness, fever, dyspnea, syncope, headache, dizziness, GI bleed, back pain, seizure, CVA, palpatations, mental health, musculoskeletal)? @ -UTI, pyelonephritis, ovarian torsion, ovarian cysts EKG interpreted by me (3pts min.). @ -Not done X-rays interpreted by me (1pt min.). @ -None done CT interpreted by me (1pt min.). @ -None done U/S interpreted by me (1pt. min.). @ -None done What testing was considered but not performed or refused? (CT, X-rays, U/S, labs)? Why? @ -None What meds were considered but not given or refused? Why? @ -None Did you discuss the management of the patient with other professionals (professionals i.e. , PA, MASTER CHEF, lab, RT, psych nurse, social services director, sky line yarder, teacher, president and chief commercial officer, case repairer)? Give summary @ -No Was smoking cessation discussed for >3mins.? @ -No Was critical care preformed (if so, how long)? @ -No Were there social determinants of health that impacted care today? How? (Homelessness, low income, unemployed, alcoholism, drug addiction, trans portation, low edu. Level, literacy, decrease access to med. care, retirement, rehab)? @ -No Was there de-escalation of care discussed even if they declined (Discuss DNR or withdrawal of care, Hospice)? DNR status @ -No What co-morbidities impacted this encounter? (DM, HTN, Smoking, COPD, CAD, Cancer, CVA, ARF, Chemo, Hep., AIDS, mental health diagnosis, sleep apnea, morbid obesity)? @ -None Was patient admitted / discharged? Hospital course, mention meds given and route, prescriptions, significant lab abnormalities, going to OR and other pertinent info. @ -Upon arrival patient was placed into room 8. Thorough history and physical exam was performed. Patient does provide a urine sample which does demonstrate symptoms concerning for UTI. She does have bright orange urine due to taking Azo for which she is notified that this medication may alter her urine color. She will be placed on antibiotics. Patient is given a dose of Macrobid in the emergency room. Will be discharged home on antibiotics. Instructed to follow up to primary care doctor to ensure that the infection is cleared. return for any new or worsening symptoms. Patient agreeable and discharged in stable condition Undiagnosed new problem with uncertain prognosis? @ -No Drug Therapy requiring intensive monitoring for toxicity (Heparin, Nitro, Insulin, Cardizem)? @ -No Were any procedures done? @ -No Diagnosis/symptom? @ -Acute dysuria, acute UTI Acute, or Chronic, or Acute on Chronic? @ -Acute Uncomplicated (without systemic symptoms) or Complicated (systemic symptoms)? @ -uncomplicated Side effects of treatment? @ -No Exacerbation, Progression, or Severe Exacerbation? @ -No Poses a threat to life or bodily function? How? (Chest pain, [place], [place], pneumonia, PE, COPD, DKA, ARF, appy, cholecystitis, CVA, Diverticulitis, Homicidal, Suicidal, threat to staff... and all critical care pts) @ -No - Lab Data Lab Results 01/07/23 01/07/23 Range/Units 15:24 15:45 Urine Color [place] Urine Appearance Clear (Clear) Urine pH 7.0 (5.0-8.0) Ur Specific [place] 1.006 (1.001-1.035) Urine Protein Negative (Negative) Urine Glucose (UA) Negative (Negative) Urine Ketones Negative (Negative) Urine Blood Trace H (Negative) Urine Nitrite Positive H (Negative) Urine Bilirubin 1+ H (Negative) Urine Urobilinogen 2.0 (<2.0) mg/dL Ur Leukocyte Esterase Moderate H (Negative) Urine RBC 1 (0-5) /hpf Urine WBC 10 H (0-5) /hpf Urine WBC Clumps Rare H (None) /hpf Ur Squamous Epith Cells 8 H (0-4) /hpf Urine Bacteria Rare H (None) /hpf Urine HCG, Qual Not Detected (Not Detectd) Disposition Clinical Impression: UTI (urinary tract infection), Dysuria Disposition: HOME SELF-CARE Condition: Stable Instructions (If sedation given, give patient instructions): Urinary Tract Infection in Women (ED) Additional Instructions: Please take the antibiotics twice daily. Follow up with your doctor and return for any new or worsening symptoms Prescriptions: Nitrofurantoin Monohyd/M-Cryst [Macrobid] 100 mg PO Q12HR #14 cap Is patient prescribed a controlled substance at d/c from ED?: No Referrals: Erin Correa DO [Primary Care Provider] - 1-2 days Time of Disposition: 16:22
[2023-01-07 16:25] VITALS: BP 140/86; PULSE 80; RESP 16
== END 2023-01-07 16:36 | disposition home or self-care (01) ==
LOC: EC 14:39
DX: N39.0 Urinary tract infection, site not specified (principal); R30.0 Dysuria; F41.9 Anxiety disorder, unspecified; F31.9 Bipolar disorder, unspecified; F17.290 Nicotine dependence, other tobacco product, uncomplicated; F12.90 Cannabis use, unspecified, uncomplicated; Z88.0 Allergy status to penicillin; Z88.8 Allergy status to other drugs, medicaments and biological substances; Z79.899 Other long term (current) drug therapy
CPT/HCPCS: 81001; 81025; 99283

== ENCOUNTER 2023-03-21 19:03 | Emergency (ER) | payer OTHER ==
[2023-03-21 19:31] VITALS: TEMP 98
--- NOTE | 2023-03-21 19:52 | ED ---
General Adult HPI - General Chief complaint: Drug Screen Stated complaint: drug screen Time Seen by Provider: 03/21/23 19:17 Source: patient, RN notes reviewed Mode of arrival: ambulatory Limitations: no limitations - History of Present Illness Initial comments: 37-year-old female presents to the emergency department for drug screen. Patient was sent in by her place of employment for drug screen. Patient admits to no incident leading to this. Patient has no physical complaints at this time - Related Data Previous Rx's Medication Instructions Recorded HYDROcodone/APAP 5-325MG [[place] 1 tab PO Q6HR PRN 3 Days #10 tab 05/27/22 5-325] Ondansetron Odt [Zofran Odt] 4 mg PO Q8HR PRN #10 tab 06/11/22 Nitrofurantoin Monohyd/M-Cryst 100 mg PO Q12HR #14 cap 01/07/23 [Macrobid] Ibuprofen [Motrin] 600 mg PO Q8HR PRN #24 tab 01/25/23 Allergies Allergy/AdvReac Type Severity Reaction Status Date / Time adhesive tape Allergy skin red Verified 03/21/23 19:16 amoxicillin [Amoxicillin] Allergy Rash/Hives Verified 03/21/23 19:16 lamotrigine [From Lamictal] Allergy Rash/Hives Verified 03/21/23 19:16 Penicillins Allergy Anaphylaxis, Verified 03/21/23 19:16 Rash Review of Systems ROS Statement: Those systems with pertinent positive or pertinent negative responses have been documented in the HPI. ROS Other: All systems not noted in ROS Statement are negative. Past Medical History Past Medical History: Thyroid Disorder Additional Past Medical History / Comment(s): genital herpes low magnesium levels and hypoglycemia migraines History of Any Multi-Drug Resistant Organisms: None Reported Past Surgical History: Appendectomy, Cholecystectomy, Tubal Ligation Additional Past Surgical History / Comment(s): wisdom teeth Past Anesthesia/Blood Transfusion Reactions: No Reported Reaction Past Psychological History: ADD/ADHD, Anxiety, Bipolar, Depression Smoking Status: Vaper Past Alcohol Use History: Rare Past Drug Use History: Marijuana - Past Family History Son(s) Family Medical History: Cancer Additional Family Medical History / Comment(s): hepatoblastoma Mother Family Medical History: Liver Disease Additional Family Medical History / Comment(s): Hepatitis C General Exam Limitations: no limitations General appearance: alert, in no apparent distress Head exam: Present: atraumatic, normocephalic, normal inspection Eye exam: Present: normal appearance ENT exam: Present: normal exam, mucous membranes moist Neck exam: Present: normal inspection. Absent: tenderness, meningismus, lymphadenopathy Respiratory exam: Present: normal lung sounds bilaterally. Absent: respiratory distress, wheezes, rales, rhonchi, stridor Cardiovascular Exam: Present: regular rate, normal rhythm, normal heart sounds. Absent: systolic murmur, diastolic murmur, rubs, gallop, clicks Neurological exam: Present: alert, oriented X3 Psychiatric exam: Present: normal affect, normal mood Skin exam: Present: warm, dry, intact, normal color. Absent: rash Course Vital Signs 03/21/23 19:13 Temperature 98 F Medical Decision Making - Medical Decision Making Was pt. sent in by a medical professional or institution (Dr. PA, RELOCATION SERVICES SPECIALIST, urgent care, hospital, or senior living...) When possible be specific @ -No Did you speak to anyone other than the patient for history (EMS, parent, family, police, friend...)? What history was obtained from this source @ -No Did you review nursing and triage notes (agree or disagree)? Why? @ -I reviewed and agree with nursing and triage notes Were old charts reviewed (outside hosp., previous admission, EMS record, old EKG, old radiological studies, urgent care reports/EKG's, senior living records)? Report findings @ -No old charts were reviewed Differential Diagnosis (chest pain, altered mental status, abdominal pain women, abdominal pain men, vaginal bleeding, weakness, fever, dyspnea, syncope, headache, dizziness, GI bleed, back pain, seizure, CVA, palpatations, mental health, musculoskeletal)? @ -not applicable EKG interpreted by me (3pts min.). @ -None X-rays interpreted by me (1pt min.). @ -None done CT interpreted by me (1pt min.). @ -None done U/S interpreted by me (1pt. min.). @ -None done What testing was considered but not performed or refused? (CT, X-rays, U/S, labs)? Why? @ -None What meds were considered but not given or refused? Why? @ -None Did you discuss the management of the patient with other professionals (professionals i.e. , PA, RELOCATION SERVICES SPECIALIST, lab, RT, psych nurse, executive secretary social welfare, internal affairs commander, teacher, promotion officer, family caseworker)? Give summary @ -No Was smoking cessation discussed for >3mins.? @ -No Was critical care preformed (if so, how long)? @ -No Were there social determinants of health that impacted care today? How? (Homelessness, low income, unemployed, alcoholism, drug addiction, transportation, low edu. Level, literacy, decrease access to med. care, care home, rehab)? @ -No Was there de-escalation of care discussed even if they declined (Discuss DNR or withdrawal of care, Hospice)? DNR status @ -No What co-morbidities impacted this encounter? (DM, HTN, Smoking, COPD, CAD, Cancer, CVA, ARF, Chemo, Hep., AIDS, mental health diagnosis, sleep apnea, morbid obesity)? @ -None Was patient admitted / discharged? Hospital course, mention meds given and route, prescriptions, significant lab abnormalities, going to OR and other pertinent info. @ -discharged. Patient presented for drug screening for employment. Undiagnosed new problem with uncertain prognosis? @ -No Drug Therapy requiring intensive monitoring for toxicity (Heparin, Nitro, Insulin, Cardizem)? @ -No Were any procedures done? @ -No Diagnosis/symptom? @ -Encounter for drug screening Acute, or Chronic, or Acute on Chronic? @ -acute Uncomplicated (without systemic symptoms) or Complicated (systemic symptoms)? @ -uncomplicated Side effects of treatment? @ -No Exacerbation, Progression, or Severe Exacerbation? @ -No Poses a threat to life or bodily function? How? (Chest pain, [place], [place], pneumonia, PE, COPD, DKA, ARF, appy, cholecystitis, CVA, Diverticulitis, Homicidal, Suicidal, threat to staff... and all critical care pts) @ -No Disposition Clinical Impression: Encounter for drug screening Disposition: HOME SELF-CARE Condition: Stable Is patient prescribed a controlled substance at d/c from ED?: No Referrals: Erin Correa DO [Primary Care Provider] - 1-2 days
== END 2023-03-21 20:48 | disposition home or self-care (01) ==
LOC: EC 19:03
DX: Z02.83 Encounter for blood-alcohol and blood-drug test (principal); F17.290 Nicotine dependence, other tobacco product, uncomplicated; F12.90 Cannabis use, unspecified, uncomplicated; Z88.0 Allergy status to penicillin; Z91.09 Other allergy status, other than to drugs and biological substances; Z88.8 Allergy status to other drugs, medicaments and biological substances
CPT/HCPCS: 99281

== ENCOUNTER → 2023-03-25 | Outpatient (CLI) | payer OTHER ==
--- NOTE | 2023-03-25 09:56 | MM ---
Reason for Exam: Clinical finding. Baseline mammogram. Indicated Problems: Non-bloody discharge of both sides (Clear) for 1 Week(s). Patient History: Menarche at age 14. First Full-Term at age 20. Patient has history of breast feeding. Patient used Hormonal Contraceptives for 17 years. Risk Values: Elisabeth 5 year model risk: 0.2%. NCI Lifetime model risk: 7.5%. Prior Study Comparison: Patient's first Mammogram. Tissue Density: The breast tissue is heterogeneously dense. This may lower the sensitivity of mammography. Findings: Analyzed By CAD. There is a mass in the right breast 7.0 cm from nipple 2 8.0 cm from nipple measuring up to 18 mm. Is located in the inferior medial aspect. Left breast: No new suspicious masses, calcifications or distortions. Overall Assessment: Incomplete: need additional imaging evaluation, BI-RAD 0 Management: Diagnostic Breast Ultrasound of the right breast. Results were given to the patient verbally at the time of exam. Patient should continue monthly self-breast exams. A clinical breast exam by your physician is recommended on an annual basis. This exam should not preclude additional follow-up of suspicious palpable abnormalities. Note on Elisabeth scores and lifetime risk: 1. A Elisabeth score greater than 3% is considered moderate risk. If this is the case, consider specialist referral to assess eligibility for a risk reducing agent. 2. If overall lifetime risk for the development of breast cancer is 20% or higher, the patient may qualify for future screening with alternating mammogram and breast MRI. Electronically signed and approved by: Christian Sheridan DO
--- NOTE | 2023-03-25 10:36 | USB ---
Reason for Exam: Clinical finding. Patient History: Menarche at age 14. First Full-Term at age 20. Patient has history of breast feeding. Patient used Hormonal Contraceptives for 17 years. Risk Values: Elisabeth 5 year model risk: 0.2%. NCI Lifetime model risk: 7.5%. Technique: Method: Targeted. Findings: The lower inner quadrant of the right breast, the axilla of the right breast and the retroareolar of the right breast were scanned. Technique utilized:US breast limited RT Image; Ultrasound imaging of: Area of concern, retroareolar region and axilla. Palpable abnormality correlates with hyperechoic lesion measuring 1.4 x 0.6 x 1.4 cm. Findings most compatible lipoma. No evidence for organizing fluid collection or mass. Overall Assessment: Benign, BI-RAD 2 Management: Screening Mammogram of both breasts at age 41. A clinical breast exam by your physician is recommended on an annual basis and results should be correlated with mammographic findings. This exam should not preclude additional follow-up of suspicious palpable abnormalities. Results were given to the patient verbally at the time of exam. Electronically signed and approved by: Christian Sheridan DO
== END | disposition home or self-care (01) ==
LOC: RADMAMWWP 09:23
PROVIDERS: ATTEND Family Medicine
DX: N64.52 Nipple discharge (principal); R92.333 Mammographic heterogeneous density, bilateral breasts
CPT/HCPCS: 77066; 76642; G0279; 77062

== ENCOUNTER → 2023-06-09 | Outpatient (CLI) | payer OTHER ==
--- NOTE | 2023-06-09 11:38 | P.SLEEP ---
History of Present Illness DATE: 06/09/2023 CONSULTATION/NEW PATIENT EVALUATION HISTORY OF PRESENT ILLNESS/SLEEP-WAKE EVALUATION: 38-year-old lady had been evaluated in the sleep center for possible obstructive sleep apnea hypopnea syndrome. Patient has history of obstructive sleep apnea diagnosed several years ago, was treated with CPAP, stop treatment and return CPAP equipment 3 years ago secondary to insurance problems. SLEEP SCHEDULE: Usually sleep schedule from midnight until 10 AM on weekdays from 11 PM to 10 AM and on weekend. FALLING ASLEEP: Sometimes patient has difficulties with the falling to sleep. DURING SLEEP: Patient snores, has episodes of witnessed sleep apneas during sleep, wakes up 2 times at night with nocturia, dry mouth, panic attacks, restless leg symptoms. Patient has positive history of twitching legs during sleep. No history of hypnogogical hallucinations, sleep paralysis, or cataplexy. DURING THE DAY/WAKE STATE: Patient wake up tired, has difficulties to pay attention, falling asleep during the day, has problems with memory, concentration, irritability, depression, anxiety. Bennett sleepiness scale is 8. Patient to feel sleepiness during the day but usually doesn't take naps. PAST MEDICAL HISTORY: Depression, ADHD. PAST SURGICAL HISTORY: Uterus ablation, tubal ligation, cholecystectomy, appe ndectomy. MEDICATIONS: Amitriptyline 10 mg at bedtime, cetirizine 10 mg once a day, fluoxetine 20 mg once a day, tizanidine 4 mg once a day,. SOCIAL HISTORY: Positive history of smoking for 12 years about half pack a day, presently vaping, alcohol consumption occasional. FAMILY HISTORY: Stroke, sleep apnea, cancer, diabetes, liver problems. REVIEW OF SYSTEMS: Snoring, multiple awakenings from sleep. No fevers. No double vision. No recent chest pain. No shortness of breath. No abdominal pain. No bleeding episodes. No blood in urine. No seizure episodes. PHYSICAL EXAMINATION: GENERAL: A pleasant patient without any distress. VITAL SIGNS: BP 116/79 , HR 67 , RR 18 , weight 176.8 pounds, height 5 foot 4 inches, body mass index 30.2 . HEENT: PERRLA, EOMI. Evaluation of oropharynx showed tongue protrudes midline, low position of soft palate Mallampati 4. NECK: Supple. No JVD. Thyroid is not palpable. 14 inches in circumference. LUNGS: Clear to percussion and to auscultation. Good air exchange. No wheezing or rhonchi. HEART: S1, S2 regular. No murmurs, gallops or rubs. ABDOMEN: Soft and nontender. Bowel sounds are present. No organomegaly appreciated. EXTREMITIES: No clubbing or cyanosis. AIRPORT DRIVER: Awake, alert, and oriented x3. Cranial nerves 2 to 7 intact. There is no fasciculation or atrophy noted. No focal deficits observed. ASSESSMENT: 1. Snoring, multiple awakenings from sleep, witnessed episodes of sleep apneas, history of obstructive sleep apnea in the past, extremely low position of soft palate. Obstructive sleep apnea hypopnea syndrome. 2. Depression. 3. History of ADHD. 4. History of sinus problems. 5 status post uterus ablation. 6 . Status post tubal ligation. 7. Status post cholecystectomy. 8. Status post appendectomy. 9. Restless leg symptoms. 10. Possibly periodic limb movements. PLAN: 1. Home sleep apnea test Polysomnography for evaluation of patient's breathing during sleep. 2. CPAP/BiPAP titration if sleep study confirms obstructive sleep apnea- hypopnea syndrome. 3. Preferable position during sleep on the side. 4. No driving if patient feels any sleepiness. Patient is aware of civil and criminal liability for unsafe driving. 5. Sleep hygiene with regular sleep time for at least 7.5-8 hours. 6. Watching weight. Thank you very much for referring this patient for consultation. Sincerely, Titi Davison MD, PhD, FAASM. Diplomat of [place] [employer], Sleep Medicine Board by [place] [employer] [place] [employer] Guest Service Representative of [facility] Past Medical History Past Medical History: Thyroid Disorder Additional Past Medical History / Comment(s): genital herpes low magnesium levels and hypoglycemia migraines History of Any Multi-Drug Resistant Organisms: None Reported Past Surgical History: Appendectomy, Cholecystectomy, Tubal Ligation Additional Past Surgical History / Comment(s): wisdom teeth Past Anesthesia/Blood Transfusion Reactions: No Reported Reaction Past Psychological History: ADD/ADHD, Anxiety, Bipolar, Depression Smoking Status: Vaper Past Alcohol Use History: Rare Past Drug Use History: Marijuana - Past Family History Son(s) Family Medical History: Cancer Additional Family Medical History / Comment(s): hepatoblastoma Mother Family Medical History: Liver Disease Additional Family Medical History / Comment(s): Hepatitis C Medications and Allergies Home Medications Medication Instructions Recorded Confirmed Type HYDROcodone/APAP 5-325MG [[place] 1 tab PO Q6HR PRN 3 Days #10 tab 05/27/22 Rx 5-325] Ondansetron Odt [Zofran Odt] 4 mg PO Q8HR PRN #10 tab 06/11/22 Rx Nitrofurantoin Monohyd/M-Cryst 100 mg PO Q12HR #14 cap 01/07/23 Rx [Macrobid] Ibuprofen [Motrin] 600 mg PO Q8HR PRN #24 tab 01/25/23 Rx Allergies Allergy/AdvReac Type Severity Reaction Status Date / Time adhesive tape Allergy skin red Verified 03/21/23 19:16 amoxicillin [Amoxicillin] Allergy Rash/Hives Verified 03/21/23 19:16 lamotrigine [From Lamictal] Allergy Rash/Hives Verified 03/21/23 19:16 Penicillins Allergy Anaphylaxis, Verified 03/21/23 19:16 Rash Sleep Note - Sleep Note Sleep Note: Temperature: Pulse Rate: Respiratory Rate: Blood Pressure: SpO2: Height: Weight: BMI: Neck Circumference:
== END ==
LOC: 3 N SLEEP 10:52
PROVIDERS: ATTEND Internal Medicine
DX: G47.33 Obstructive sleep apnea (adult) (pediatric) (principal); F32.A Depression, unspecified; F90.9 Attention-deficit hyperactivity disorder, unspecified type; G25.81 Restless legs syndrome; F12.90 Cannabis use, unspecified, uncomplicated; Z98.890 Other specified postprocedural states; Z87.09 Personal history of other diseases of the respiratory system; Z98.51 Tubal ligation status; Z90.49 Acquired absence of other specified parts of digestive tract; Z90.89 Acquired absence of other organs; Z91.048 Other nonmedicinal substance allergy status; Z88.0 Allergy status to penicillin; Z88.8 Allergy status to other drugs, medicaments and biological substances
CPT/HCPCS: 99211

== ENCOUNTER 2023-07-03 19:49 | Outpatient (CLI) | payer OTHER ==
--- NOTE | 2023-07-07 17:32 | P.PCN ---
Description of Procedure: POLYSOMNOGRAPHY REPORT PROCEDURE(S)/DATE(S): Polysomnography 09/26/2023 CLINICAL: Patient has been seen in the sleep center for evaluation of obstructive sleep apnea-hypopnea syndrome. Please see my consultation. Sleep study has been done for evaluation of patient breathing during the sleep. PROCEDURE: The standard montage for clinical polysomnography included the electroencephalogram, the electrooculogram, the mentalis surface electromyography and Lead II cardiography. The respiratory battery consisted of measurements of nasal/buccal air flow, pressure transducer measurements from nose, thoracic and/or abdominal effort and intercostal surface electromyography. Video monitoring has been done to check for any parasomnia events. Nocturnal oxyhemoglobin saturations were obtained by finger oximetry. Step-ralph titration with positive airway pressure was utilized to control the respiratory events, if necessary. RESULTS: During the diagnostic sleep study sleep efficiency was extremely high 98.1 %. Latency to sleep onset was short 4.0 min. Sleep architecture showed s tage NI was short 3.5 %, Delta sleep was short 2.8 %, REM sleep was extremely high 55.9 %. Latency to first REM sleep was slightly short 61.0 minutes. Respiratory channel showed 0 obstructive apneas, 0 mixed apneas, 0 central apneas, 4 hypopneas with lowest oxygen level 90%. Total apnea hypopnea index was 0.7. Heart rate was in the range between 63 and 72, average 67. EMG showed 4.9 periodic limb movements per hour with 0 micro-arousals per hour. IMPRESSIONS: 1. No significant respiratory abnormalities have been documented during the sleep study. 2. No significant periodic limb movements have been documented. Please see other impressions from consultation PLAN: 1. I will see patient for follow-up visit this results of the test and recommendations. 2. Watching weight. 3. Sleep hygiene with regular time in bed for at least 7-1/2 hours. 4. No driving if feeling sleepiness. Thank you very much for allowing me to participate in the management of your patient. Sincerely, Titi Davison MD, PhD, FAASM. Diplomat of [place] [employer], Sleep Medicine Board by [place] [employer] [facility] [facility] [place]
== END 2023-07-04 00:52 | disposition home or self-care (01) ==
LOC: 3 N SLEEP 19:49
PROVIDERS: ATTEND Internal Medicine
DX: G47.33 Obstructive sleep apnea (adult) (pediatric) (principal); G47.52 REM sleep behavior disorder; F17.200 Nicotine dependence, unspecified, uncomplicated; Z91.048 Other nonmedicinal substance allergy status; Z88.0 Allergy status to penicillin; Z88.8 Allergy status to other drugs, medicaments and biological substances
CPT/HCPCS: 95810

== ENCOUNTER 2023-11-10 00:55 | Emergency (ER) | payer OTHER ==
[2023-11-10 01:01] VITALS: RESP 20
--- NOTE | 2023-11-10 01:49 | ED ---
ENT HPI - General Chief complaint: ENT Stated complaint: sore throat numbness ear pain Time Seen by Provider: 11/10/23 01:03 Source: patient, RN notes reviewed Mode of arrival: ambulatory Limitations: no limitations - History of Present Illness Initial comments: 38-year-old female presenting to the ED with a chief complaint of sore throat. Patient reports yesterday onset of sore throat and myalgias and bilateral pain as well. No hearing loss. Does note associated fever with a Tmax of 100.5. Patient also notes over the past few days she has been having some urinary frequency. No abdominal pain. No changes in bowel habits. No other complaints at this time. - Related Data Previous Rx's Medication Instructions Recorded HYDROcodone/APAP 5-325MG [[place] 1 tab PO Q6HR PRN 3 Days #10 tab 05/27/22 5-325] Ondansetron Odt [Zofran Odt] 4 mg PO Q8HR PRN #10 tab 06/11/22 Nitrofurantoin Monohyd/M-Cryst 100 mg PO Q12HR #14 cap 01/07/23 [Macrobid] Ibuprofen [Motrin] 600 mg PO Q8HR PRN #24 tab 01/25/23 Azithromycin [Zithromax Z Pack] 0 tab PO DIRECTED #6 tab 11/10/23 Allergies Allergy/AdvReac Type Severity Reaction Status Date / Time adhesive tape Allergy skin red Verified 11/10/23 01:01 amoxicillin [Amoxicillin] Allergy Rash/Hives Verified 11/10/23 01:01 lamotrigine [From Lamictal] Allergy Rash/Hives Verified 11/10/23 01:01 Penicillins Allergy Anaphylaxis, Verified 11/10/23 01:01 Rash Review of Systems ROS Statement: Those systems with pertinent positive or pertinent negative responses have been documented in the HPI. ROS Other: All systems not noted in ROS Statement are negative. Past Medical History Past Medical History: Thyroid Disorder Additional Past Medical History / Comment(s): genital herpes low magnesium levels and hypoglycemia migraines History of Any Multi-Drug Resistant Organisms: None Reported Past Surgical History: Appendectomy, Cholecystectomy, Tubal Ligation Additional Past Surgical History / Comment(s): wisdom teeth Past Anesthesia/Blood Transfusion Reactions: No Reported Reaction Past Psychological History: ADD/ADHD, Anxiety, Bipolar, Depression Smoking Status: Vaper Past Alcohol Use History: Rare Past Drug Use History: Marijuana - Past Family History Son(s) Family Medical History: Cancer Additional Family Medical History / Comment(s): hepatoblastoma Mother Family Medical History: Liver Disease Additional Family Medical History / Comment(s): Hepatitis C General Exam Limitations: no limitations General appearance: alert, in no apparent distress Eye exam: Present: normal appearance ENT exam: Present: other (Tonsils appear erythematous with some overlying exudate. No significant oropharyngeal swelling suggestive of abscess formation. No stridor. Tolerating secretions.) Neck exam: Present: normal inspection Respiratory exam: Present: normal lung sounds bilaterally Cardiovascular Exam: Present: regular rate GI/Abdominal exam: Present: soft, normal bowel sounds. Absent: distended, tenderness, guarding, rebound, rigid Neurological exam: Present: alert, oriented X3 Skin exam: Present: warm, dry Course Vital Signs 11/10/23 00:56 Temperature 97.9 F Pulse Rate 114 H Respiratory 20 Rate Blood Pressure 112/76 O2 Sat by Pulse 98 Oximetry Medical Decision Making - Medical Decision Making Was pt. sent in by a medical professional or institution (, PA, LEAD INFRASTRUCTURE ARCHITECT, urgent care, hospital, or senior living...) When possible be specific @ -No Did you speak to anyone other than the patient for history (EMS, parent, family, police, friend...)? What history was obtained from this source @ -No Did you review nursing and triage notes (agree or disagree)? Why? @ -I reviewed and agree with nursing and triage notes Were old charts reviewed (outside hosp., previous admission, EMS record, old EKG, old radiological studies, urgent care reports/EKG's, senior living records)? Report findings @ -No old charts were reviewed Differential Diagnosis (chest pain, altered mental status, abdominal pain women, abdominal pain men, vaginal bleeding, weakness, fever, dyspnea, syncope, headache, dizziness, GI bleed, back pain, seizure, CVA, palpatations, mental health, musculoskeletal)? @ -Differential Fever: Pneumonia, viral URI, endocarditis, myocarditis, pericarditis, otitis, sinusitis, peritonsillar Abscess, retropharyngeal Abscess, epiglottitis, peritonitis, appendicitis, Cesia cystitis, diverticulitis, hepatitis, colitis, UTI, PID, TOA, pyelonephritis, prostatitis, epididymitis, meningitis, encephalitis, pulmonary embolism, CVA, thyroid storm, pancreatitis, adrenal crisis, cavernous sinus thrombosis, this is not meant to be an all-inclusive list. EKG interpreted by me (3pts min.). @ -None X-rays interpreted by me (1pt min.). @ -None done CT interpreted by me (1pt min.). @ -None done U/S interpreted by me (1pt. min.). @ -None done What testing was considered but not performed or refused? (CT, X-rays, U/S, labs)? Why? @ -None What meds were considered but not given or refused? Why? @ -None Did you discuss the management of the patient with other professionals (professionals i.e. , PA, LEAD INFRASTRUCTURE ARCHITECT, lab, RT, psych nurse, social work faculty member, senior health physics technician, teacher, jailer/training officer, comp field case manager)? Give summary @ -No Was smoking cessation discussed for >3mins.? @ -No Was critical care preformed (if so, how long)? @ -No Were there social determinants of health that impacted care today? How? (Homeles sness, low income, unemployed, alcoholism, drug addiction, transportation, low edu. Level, literacy, decrease access to med. care, fci, rehab)? @ -No Was there de-escalation of care discussed even if they declined (Discuss DNR or withdrawal of care, Hospice)? DNR status @ -No What co-morbidities impacted this encounter? (DM, HTN, Smoking, COPD, CAD, Cancer, CVA, ARF, Chemo, Hep., AIDS, mental health diagnosis, sleep apnea, morbid obesity)? @ -None Was patient admitted / discharged? Hospital course, mention meds given and route, prescriptions, significant lab abnormalities, going to OR and other pertinent info. @ -Discharge 38-year-old female presenting to the ED with plaints of sore throat with some associated myalgias and headache also notes some urinary frequency. UA r eviewed. No significant evidence of infection. No glucose. Serology panel does show positive for strep and heterophile antibody. Patient will be treated for strep with prescription for azithromycin as patient has known allergy to penicillins and amoxicillin. Discharged home in stable condition. Discussed return precautions with patient who verbalized agreement. Undiagnosed new problem with uncertain prognosis? @ -No Drug Therapy requiring intensive monitoring for toxicity (Heparin, Nitro, Insulin, Cardizem)? @ -No Were any procedures done? @ -No Diagnosis/symptom? @ -Streptococcal pharyngitis Acute, or Chronic, or Acute on Chronic? @ -Acute Uncomplicated (without systemic symptoms) or Complicated (systemic symptoms)? @ -Uncomplicated Side effects of treatment? @ -No Exacerbation, Progression, or Severe Exacerbation? @ -No Poses a threat to life or bodily function? How? (Chest pain, [place], [place], pneumonia, PE, COPD, DKA, ARF, appy, cholecystitis, CVA, Diverticulitis, Homicidal, Suicidal, threat to staff... and all critical care pts) @ -No - Lab Data Lab Results 11/10/23 11/10/23 11/10/23 Range/Units 01:42 01:42 01:42 Urine Color Urine Appearance (Clear) Urine pH (5.0-8.0) Ur Specific [place] (1.001-1.035) Urine Protein (Negative) Urine Glucose (UA) (Negative) Urine Ketones (Negative) Urine Blood (Negative) Urine Nitrite (Negative) Urine Bilirubin (Negative) Urine Urobilinogen (<2.0) mg/dL Ur Leukocyte Esterase (Negative) Urine RBC (0-5) /hpf Urine WBC (0-5) /hpf Ur Squamous Epith Cells (0-4) /hpf Urine Bacteria (None) /hpf Urine Mucus (None) /hpf Urine HCG, Qual (Not Detectd) Heterophile Antibody Positive (Negative) Influenza Type A (PCR) Not Detected (Not Detectd) Influenza Type B (PCR) Not Detected (Not Detectd) RSV (PCR) Not Detected (Not Detectd) SARS-CoV-2 (PCR) Not Detected (Not Detectd) Group A Strep (PCR) DETECTED A (Not Detectd) 11/10/23 11/10/23 Range/Units 01:42 01:42 Urine Color Colorless Urine Appearance Clear (Clear) Urine pH 6.5 (5.0-8.0) Ur Specific [place] 1.017 (1.001-1.035) Urine Protein Negative (Negative) Urine Glucose (UA) Negative (Negative) Urine Ketones Negative (Negative) Urine Blood Small H (Negative) Urine Nitrite Negative (Negative) Urine Bilirubin Negative (Negative) Urine Urobilinogen <2.0 (<2.0) mg/dL Ur Leukocyte Esterase Negative (Negative) Urine RBC 1 (0-5) /hpf Urine WBC 2 (0-5) /hpf Ur Squamous Epith Cells 4 (0-4) /hpf Urine Bacteria Rare H (None) /hpf Urine Mucus Rare H (None) /hpf Urine HCG, Qual Not Detected (Not Detectd) Heterophile Antibody (Negative) Influenza Type A (PCR) (Not Detectd) Influenza Type B (PCR) (Not Detectd) RSV (PCR) (Not Detectd) SARS-CoV-2 (PCR) (Not Detectd) Group A Strep (PCR) (Not Detectd) Disposition Clinical Impression: Strep pharyngitis Disposition: HOME SELF-CARE Condition: Good Instructions (If sedation given, give patient instructions): Strep Throat (ED) Additional Instructions: Please return to the Emergency Department if symptoms worsen or any other concerns. Please follow-up with your primary care provider. Prescriptions: Azithromycin [Zithromax Z Pack] 0 tab PO DIRECTED #6 tab Is patient prescribed a controlled substance at d/c from ED?: No Referrals: Radha Ayala PAC [REFERRING] - 1-2 days Time of Disposition: 03:47
[2023-11-10] MEDS: ACETAMINOPHEN TAB 500 MG TAB PO STA (01:52)
[2023-11-10] MEDS: SODIUM CHLORIDE 0.9% 1,000 ML IV STA (01:54)
[2023-11-10 02:18] LABS: Appearance,Urine Clear (Clear); Bacteria,Urine Rare /hpf; Bilirubin,Urine Negative (Negative); Blood,Urine Small (Negative); Color,Urine Colorless; Glucose,Urine (UA) Negative (Negative); Ketones,Urine Negative (Negative); Leukocyte Esterase,Urine Negative (Negative); Mucus,Urine Rare /hpf; Nitrite,Urine Negative (Negative); PH, Urine 6.5 (5.0-8.0); Protein,Urine Negative (Negative); RBC,Urine 1 /hpf (0-5); Specific Gravity,Urine 1.017 (1.001-1.035); Squamous Epithelial Cell,Urine 4 /hpf (0-4); Urobilinogen,Urine <2.0 mg/dL (<2.0); WBC,Urine 2 /hpf (0-5)
[2023-11-10] MEDS: KETOROLAC 15 MG/ML 1 ML VIAL IVP STA (04:00)
[2023-11-10 04:30] VITALS: BP 115/77; PULSE 98; TEMP 97.7
== END 2023-11-10 04:04 | disposition home or self-care (01) ==
LOC: EC 00:55
DX: J02.0 Streptococcal pharyngitis (principal); B95.0 Streptococcus, group A, as the cause of diseases classified elsewhere; F17.290 Nicotine dependence, other tobacco product, uncomplicated; Z88.0 Allergy status to penicillin; Z88.8 Allergy status to other drugs, medicaments and biological substances; Z91.09 Other allergy status, other than to drugs and biological substances
CPT/HCPCS: 36415; 87651; 86308; 81001; 81025; 87636; 99284; 96374; 96361 ×2; J1885

== ENCOUNTER 2024-05-24 23:32 | Emergency (ER) | payer OTHER ==
[2024-05-24 23:37] VITALS: RESP 18
--- NOTE | 2024-05-25 00:04 | ED ---
Fall HPI - General Chief Complaint: Fall Stated Complaint: Foot injury Time Seen by Provider: 05/25/24 00:02 Source: patient, RN notes reviewed Mode of arrival: ambulatory - History of Present Illness Initial Comments: 49-year-old female presenting for left ankle injury 3 days ago. States she tripped while walking and rolled her left ankle. States she has been having pain on the lateral aspect of ankle. She is able to weight-bear. Denies other injuries. Denies hitting head or losing consciousness. - Related Data Previous Rx's Medication Instructions Recorded HYDROcodone/APAP 5-325MG [[place] 1 tab PO Q6HR PRN 3 Days #10 tab 05/27/22 5-325] Ondansetron Odt [Zofran Odt] 4 mg PO Q8HR PRN #10 tab 06/11/22 Nitrofurantoin Monohyd/M-Cryst 100 mg PO Q12HR #14 cap 01/07/23 [Macrobid] Ibuprofen [Motrin] 600 mg PO Q8HR PRN #24 tab 01/25/23 Azithromycin [Zithromax Z Pack] 0 tab PO DIRECTED #6 tab 11/10/23 Allergies Allergy/AdvReac Type Severity Reaction Status Date / Time adhesive tape Allergy skin red Verified 05/24/24 23:37 amoxicillin [Amoxicillin] Allergy Rash/Hives Verified 05/24/24 23:37 lamotrigine [From Lamictal] Allergy Rash/Hives Verified 05/24/24 23:37 Penicillins Allergy Anaphylaxis, Verified 05/24/24 23:37 Rash Review of Systems ROS Statement: Those systems with pertinent positive or pertinent negative responses have been documented in the HPI. ROS Other: All systems not noted in ROS Statement are negative. Past Medical History Past Medical History: Thyroid Disorder Additional Past Medical History / Comment(s): genital herpes low magnesium levels and hypoglycemia migraines History of Any Multi-Drug Resistant Organisms: None Reported Past Surgical History: Appendectomy, Cholecystectomy, Tubal Ligation Additional Past Surgical History / Comment(s): wisdom teeth Past Anesthesia/Blood Transfusion Reactions: No Reported Reaction Past Psychological History: ADD/ADHD, Anxiety, Bipolar, Depression Smoking Status: Vaper Past Alcohol Use History: Rare Past Drug Use History: Marijuana - Past Family History Son(s) Family Medical History: Cancer Additional Family Medical History / Comment(s): hepatoblastoma Mother Family Medical History: Liver Disease Additional Family Medical History / Comment(s): Hepatitis C General Exam Limitations: no limitations General appearance: alert, in no apparent distress Head exam: Present: atraumatic, normocephalic, normal inspection Left Lower Leg exam: Present: normal inspection, full ROM. Absent: tenderness, swelling Ankle exam: Present: full ROM, tenderness (Tenderness and edema over lateral malleolus), swelling. Absent: normal inspection Foot/Toe exam: Present: normal inspection, full ROM. Absent: tenderness, swelling Neurovascular tendon exam: Present: no vascular compromise. Absent: pulse deficit, abnormal cap refill, sensory deficit Neurological exam: Present: alert, oriented X3 Psychiatric exam: Present: normal affect, normal mood Skin exam: Present: warm, dry, intact, normal color. Absent: rash Course Vital Signs 05/24/24 05/25/24 23:34 02:10 Temperature 97.6 F 98.4 F Pulse Rate 68 70 Respiratory 18 18 Rate Blood Pressure 121/83 126/74 O2 Sat by Pulse 100 98 Oximetry Medical Decision Making - Medical Decision Making Was pt. sent in by a medical professional or institution (, PA, CLAIMS ASSISTANT, urgent care, hospital, or custodial...) When possible be specific @ -No Did you speak to anyone other than the patient for history (EMS, parent, family, police, friend...)? What history was obtained from this source @ -No Did you review nursing and triage notes (agree or disagree)? Why? @ -I reviewed and agree with nursing and triage notes Were old charts reviewed (outside hosp., previous admission, EMS record, old EKG, old radiological studies, urgent care reports/EKG's, custodial records)? Report findings @ -No old charts were reviewed Differential Diagnosis (chest pain, altered mental status, abdominal pain women, abdominal pain men, vaginal bleeding, weakness, fever, dyspnea, syncope, headache, dizziness, GI bleed, back pain, seizure, CVA, palpatations, mental health, musculoskeletal)? @ -Differential Musculoskeletal Muscular strain, contusion, ligament sprain, fracture, arthritis, septic arthritis, bursitis, cellulitis, muscle spasm, nerve compression, DVT, arterial occlusion, herpes zoster, electrolyte abnormality, tumor.... This is not meant to be in all inclusive list EKG interpreted by me (3pts min.). @ -None X-rays interpreted by me (1pt min.). @ -X-ray interpreted by me reveals no acute fracture or dislocation of left ankle CT interpreted by me (1pt min.). @ -None done U/S interpreted by me (1pt. min.). @ -None done What testing was considered but not performed or refused? (CT, X-rays, U/S, labs)? Why? @ -None What meds were considered but not given or refused? Why? @ -None Did you discuss the management of the patient with other professionals (professionals i.e. DrMati, PA, CLAIMS ASSISTANT, lab, RT, psych nurse, social media sr strategy manager, terrapin fisher, teacher, senior escrow officer, caser up)? Give summary @ -No Was smoking cessation discussed for >3mins.? @ -No Was critical care preformed (if so, how long)? @ -No Were there social determinants of health that impacted care today? How? (Homelessness, low income, unemployed, alcoholism, drug addiction, transportation, low edu. Level, literacy, decrease access to med. care, shelter, rehab)? @ -No Was there de-escalation of care discussed even if they declined (Discuss DNR or withdrawal of care, Hospice)? DNR status @ -No What co-morbidities impacted this encounter? (DM, HTN, Smoking, COPD, CAD, Cancer, CVA, ARF, Chemo, Hep., AIDS, mental health diagnosis, sleep apnea, morbid obesity)? @ -None Was patient admitted / discharged? Hospital course, mention meds given and route, prescriptions, significant lab abnormalities, going to OR and other pertinent info. @ -Discharge. This is a 39-year-old female presenting for left ankle injury 3 days ago. Able to weight-bear. Neurovascularly intact. There is swelling and tenderness over lateral malleolus. X-ray interpreted by me reveals no acute fracture or dislocation of left ankle. Discussed results with patient. Discussed diagnosis of left ankle sprain. Appropriate return precautions and supportive care discussed. Patient is agreeable to plan. Case was discussed with the ED attending Dr. Chicas Undiagnosed new problem with uncertain prognosis? @ -No Drug Therapy requiring intensive monitoring for toxicity (Heparin, Nitro, Insulin, Cardizem)? @ -No Were any procedures done? @ -No Diagnosis/symptom? @ -Left ankle sprain Acute, or Chronic, or Acute on Chronic? @ -Acute Uncomplicated (without systemic symptoms) or Complicated (systemic symptoms)? @ -Uncomplicated Side effects of treatment? @ -No Exacerbation, Progression, or Severe Exacerbation? @ -No Poses a threat to life or bodily function? How? (Chest pain, [place], [place], pneumonia, PE, COPD, DKA, ARF, appy, cholecystitis, CVA, Diverticulitis, Homicidal, Suicidal, threat to staff... and all critical care pts) @ -No Disposition Clinical Impression: Left ankle sprain Disposition: HOME SELF-CARE Condition: Stable Instructions (If sedation given, give patient instructions): Ankle Sprain (ED) Additional Instructions: Rest, ice, and elevate left ankle. Please return to the Emergency Department if symptoms worsen or any other concerns. Is patient prescribed a controlled substance at d/c from ED?: No Referrals: Krish Lewis MD [Primary Care Provider] - 1-2 days Time of Disposition: 02:02
[2024-05-25 02:12] VITALS: BP 126/74; PULSE 70; TEMP 98.4
--- NOTE | 2024-05-25 04:05 | XR ---
EXAM: XR Left Ankle Complete, 3 or More Views CLINICAL HISTORY: ITS.REASON XR Reason: left ankle injury TECHNIQUE: Frontal, lateral and oblique views of the left ankle. COMPARISON: No relevant prior studies available. IMPRESSION: 1. No evidence of acutely displaced fracture or dislocation within the left ankle. 2. Soft tissue swelling, asymmetric to the left lateral ankle. Findings may relate to ligamentous injury. Consider MRI if there is further concern. 3. Prominent enthesophyte formation at the plantar fascia origin.
== END 2024-05-25 02:10 | disposition home or self-care (01) ==
LOC: EC 23:32
DX: S93.402A Sprain of unspecified ligament of left ankle, initial encounter (principal); F17.290 Nicotine dependence, other tobacco product, uncomplicated; Z88.0 Allergy status to penicillin; Z91.09 Other allergy status, other than to drugs and biological substances; Z88.8 Allergy status to other drugs, medicaments and biological substances; W01.0XXA Fall on same level from slipping, tripping and stumbling without subsequent striking against object, initial encounter; Y93.01 Activity, walking, marching and hiking
CPT/HCPCS: 99283